=== PATIENT | female | born 1950 | race Caucasian/White ===

== ENCOUNTER 2016-06-05 09:57 | Emergency (ER) | payer OTHER ==
[~2016-06-05] VITALS: Ht 157.5 cm; Wt 96.7 kg
[~2016-06-05 09:57] MED LIST: AMT50 PO; CARV12.52 PO; INSDGI SC; METF1000 PO; MIRT15TA2 PO; ONDA8TAB6 PO; OXYC1TAB3 PO
[2016-06-05 10:14] VITALS: TEMP 36.9; Ht 157.5 cm; Wt 96.7 kg
--- NOTE | 2016-06-05 10:40 | DIAGNOSTIC IMAGING REPORT ---
RIGHT KNEE 3 VIEWS CLINICAL HISTORY: Right knee pain following fall. COMPARISON: Right knee radiographs March 30, 2016. FINDINGS: Alignment of the total right knee arthroplasty is anatomic. There is no periprosthetic fracture. Soft tissue swelling and a right knee joint effusion are present. IMPRESSION: 1. Status post total right knee arthroplasty. Hardware intact. No periprosthetic fracture. 2. Right knee joint effusion and soft tissue swelling. Electronically signed by: Bryon Russell M.D. 06/05/2016 10:38 AM Dictated Date/Time: 06/05/2016 10:37 AM
--- NOTE | 2016-06-05 10:42 | DIAGNOSTIC IMAGING REPORT ---
LEFT KNEE 3 VIEWS CLINICAL HISTORY: Left knee pain following fall. COMPARISON: Left knee radiograph May 26, 2014. FINDINGS: Alignment of the total left knee arthroplasty is anatomic. There is no periprosthetic fracture or joint effusion. Irregularity of the superior pole the patella is chronic. IMPRESSION: Status post total left knee arthroplasty. No periprosthetic fracture or joint effusion. Electronically signed by: Bryon Russell M.D. 06/05/2016 10:41 AM Dictated Date/Time: 06/05/2016 10:39 AM
[2016-06-05] MEDS ORDERED: OXYCODONE HCL IR 5 MG TAB (IMMEDIATE RELEASE) PO STA (11:29)
--- NOTE | 2016-06-05 11:48 | EMERGENCY ROOM VISIT NOTE ---
ED Visit Note First contact with patient: 11:19 CHIEF COMPLAINT: Bilateral knee contusions and abrasions after a fall this morning HISTORY OF PRESENT ILLNESS: Patient is a 65-year-old white female who presents to the emergency department for evaluation of bilateral knee pain. She states that about 2 hours prior to arrival in the emergency department she was outside with her dog, when she lost her balance and fell landing on her flexed knees bilaterally. She was wearing shorts and landed on concrete. She is 10 years status post left total knee arthroplasty and just 2 months status post right total knee arthroplasty performed by Dr. Elizabeth. Patient states that she took Tylenol after the fall which did not help with her knee pain. She presently rates it a 8/10. She reports that she does not have any prescription pain medication at home to use. She has been released from physical therapy. She is supposed to be walking with a cane and did not have it with her when she was outside. She controlled bleeding from her abrasions with a paper towel. REVIEW OF SYSTEMS: Review of systems as per HPI. All other systems reviewed were negative. At least 6 systems reviewed. PMH: Electronic medical records are reviewed and summarized as above/below. See Problem List.. SOCIAL HISTORY: Patient lives at home. PHYSICAL EXAM: Vital Signs: Reviewed Nurse's notes. MENTAL STATUS: Patient is a well-appearing 65-year-old white female who is awake and alert and seated in a wheelchair in no acute distress. MUSCULOSKELETAL: Examination of the anterior knees bilaterally show well-healed surgical scars. She has superficial abrasions, right worse than left, without active bleeding. Examination of the left knee does not demonstrate any significant soft tissue swelling. No joint effusion appreciated. She is tender over the anterior aspect of the knee. She can extend fully, flexes to roughly 100. No gross ligamentous instability is appreciated. Examination of the right knee does reveal some slight anterior soft tissue swelling and a mild joint effusion is appreciated. The anterior knee is tender. She can extend fully and flex to roughly 90. Calves are soft and nontender. Distal pulses are easily palpable. Sensation light touch is intact. EMERGENCY DEPARTMENT COURSE: X-rays of the bilateral knees showed anatomic alignment of the total knee arthroplasties, without evidence for periprosthetic fracture. She had some residual soft tissue swelling and a small joint effusion of the right knee which is postoperative. Patient's abrasions were cleansed and dressed. She was medicated with oxycodone 10 mg orally for pain. She was advised to be more careful and to ambulate with her cane at all times to minimize the risk of falling as this is her second ED visit for a fall since her right total knee replacement. The patient is on a watch and wait policy regarding narcotics at our facility due to prior behavior. It was not felt that her injuries warranted a narcotic prescription. It she was encouraged to follow-up with her orthopedic surgeon and if they would like to prescribe her something additional for pain, then they can do so. She reportedly has an appointment for June 21, but was encouraged to try to move this up due to her recent falls. The patient rated her discomfort a 2/10 at discharge. Differential diagnoses include contusion, abrasion, patellar fracture, periprosthetic fracture or hardware compromise/loosening, tendon rupture, among others. RIGHT KNEE 3 VIEWS CLINICAL HISTORY: Right knee pain following fall. COMPARISON: Right knee radiographs March 30, 2016. FINDINGS: Alignment of the total right knee arthroplasty is anatomic. There is no periprosthetic fracture. Soft tissue swelling and a right knee joint effusion are present. IMPRESSION: 1. Status post total right knee arthroplasty. Hardware intact. No periprosthetic fracture. 2. Right knee joint effusion and soft tissue swelling. LEFT KNEE 3 VIEWS CLINICAL HISTORY: Left knee pain following fall. COMPARISON: Left knee radiograph May 26, 2014. FINDINGS: Alignment of the total left knee arthroplasty is anatomic. There is no periprosthetic fracture or joint effusion. Irregularity of the superior pole the patella is chronic. IMPRESSION: Status post total left knee arthroplasty. No periprosthetic fracture or joint effusion. 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 (8) History of bladder surgery Status: Chronic (9) Hypertension Status: Chronic (10) Hypothyroidism Status: Chronic (11) Obesity (BMI 30.0-34.9) Status: Chronic (12) Osteoarthritis Status: Chronic (13) Pneumonia Status: Resolved Surgical Problems: (1) History of appendectomy Status: Chronic (2) History of esophageal surgery Status: Chronic (3) Hx of shoulder surgery Status: Chronic (4) S/p bilateral carpal tunnel release Status: Chronic (5) S/P cataract surgery Status: Chronic (6) S/P hysterectomy Status: Chronic (7) S/P thyroidectomy Status: Chronic Current/Historical Medications Scheduled Amitriptyline Hcl (Elavil), 100 MG PO HS Aspirin (Aspirin Ec), 81 MG PO DAILY Carvedilol (Coreg), 12.5 MG PO BID Hydrochlorothiazide (Hydrochlorothiazide), 1 TAB PO DAILY Insulin Glargine (Lantus), 7 UNITS SC QAM Insulin Glargine (Lantus), 30 UNITS SC QPM Levothyroxine Sodium (Synthroid), 200 MCG PO QAM Lisinopril (Lisinopril), 20 MG PO QAM Metformin Hcl (Glucophage), 1,000 MG PO BIDM Mirtazapine Soltab (Remeron Soltab), 15 MG PO HS Scheduled PRN Acetaminophen (Tylenol), 1,000 MG PO Q8 PRN for Headache or Pain Azelastine Hcl (Astelin Nasal [place]), 2 SPRAYS NA BID PRN for Nasal Congestion Polyethylene Glycol 3350 (Miralax), 1 TBS PO DAILY PRN for Constipation Allergies Coded Allergies: Amoxicillin (Verified Adverse Reaction, Unknown, nausea, 06/05/16) Clavulanic Acid (Verified Adverse Reaction, Unknown, nausea, 06/05/16) Penicillins (Verified Adverse Reaction, Unknown, NAUSEA/VOMITING, 06/05/16) Vital Signs Date Time Temp Pulse Resp B/P Pulse Ox O2 Delivery O2 Flow Rate FiO2 06/05/16 12:17 81 18 153/89 97 Room Air 06/05/16 10:14 36.9 85 16 134/60 94 Medications Administered Medications (Trade) Dose Ordered Sig/Melquiades Route Start Time Stop Time Status Last Admin Dose Admin Oxycodone HCl (Roxicodone Immediate Rel Tab) 10 mg NOW STAT PO 06/05/16 11:29 06/05/16 11:30 DC 06/05/16 11:50 10 MG Departure Information Impression Primary Impression: Contusion of left knee Additional Impressions: Contusion of right knee Multiple abrasions Referrals Chavo Paz M.D. (PCP) Patient Instructions My [facility] Additional Instructions DO NOT drive, drink alcohol, operate machinery, or perform dangerous activities today. You were given medications in the ER that can affect your ability to safely function or operate a vehicle. Ibuprofen(Motrin, Advil) may be used for fever or pain. Use 600mg every six hours as needed. Take with food. Avoid using more than 2400mg in a 24 hour period. Do not use 2400mg per day for more than three consecutive days without physician direction. Prolonged inappropriate use can lead to stomach upset or ulcers. (AND/OR) Acetaminophen(Tylenol) may be used for fever or pain. Use 1000mg every six hours as needed. Avoid using more than 3000mg in a 24 hour period. Clean abrasions daily with mild soap and water and cover with antibiotic ointment and a bandage until healed. Ambulate with your cane to minimize the risk of falling. Follow-up with your surgeon as scheduled. Call their office today to notify them of your falls and to schedule an appointment sooner if necessary. Problem Qualifiers Primary Impression: Contusion of left knee Encounter type: initial encounter Qualified Codes: S80.02XA - Contusion of left knee, initial encounter Additional Impressions: Contusion of right knee Encounter type: initial encounter Qualified Codes: S80.01XA - Contusion of right knee, initial encounter
[2016-06-05 12:17] VITALS: BP 153/89; PULSE 81; O2SAT 97
[2016-06-05] MEDS ORDERED: LEVO200T PO (17:20)
[2016-06-05] MEDS ORDERED: HYDR12.55 PO (18:19)
[2016-06-05] MEDS ORDERED: INSDGI SC (23:48)
[2016-08-04] MEDS ORDERED: LSN20 PO (17:17)
[2016-10-07] MEDS ORDERED: RXC5 PO (10:29)
== END 2016-06-05 12:18 | disposition home or self-care (01) ==
LOC: C.EDB 09:58 → C.EDA 12:18
DX: S80.02XA Contusion of left knee, initial encounter (principal); S80.01XA Contusion of right knee, initial encounter; W19.XXXA Unspecified fall, initial encounter; F41.9 Anxiety disorder, unspecified; E11.9 Type 2 diabetes mellitus without complications; I10 Essential (primary) hypertension; E03.9 Hypothyroidism, unspecified; E66.9 Obesity, unspecified; Z79.82 Long term (current) use of aspirin; Z68.39 Body mass index [BMI] 39.0-39.9, adult

== ENCOUNTER → 2016-07-19 | Outpatient (CLI) | payer OTHER ==
[~2016-07-19] MED LIST changes: +ACET-1256 PO; +AMT100 PO; +ASPI81TA28 PO; +ASTN; +BUSP1TAB46 PO; +CRG125 PO; +CYM60 PO; +HYDR12.55 PO; +INSDGIPEN SC; +LEVO200T PO; +LEVO200T6 PO; +LSN20 PO; +METF-384 PO; +MIRT15TA3 PO; -ONDA8TAB6 PO; -OXYC1TAB3 PO; +POLY335025 PO; +PRX/40 PO; +RXC5 PO; +VNTHFA/IN INH
--- NOTE | 2016-07-19 09:07 | DIAGNOSTIC IMAGING REPORT ---
CT LUMBAR SPINE WITHOUT CT DOSE: 602.95 mGycm CLINICAL HISTORY: Back pain with leg radiculopathy. TECHNIQUE: Helical images were acquired in transverse plane. Reformatted sagittal and coronal images were reviewed. CONTRAST: No contrast was administered COMPARISON STUDY: 10/05/2014 FINDINGS: There is a transitional vertebra present. There is sacralization of the L5 vertebra. There is an old T12 compression deformity. L1-2 level: There is a minor circumferential disc bulge present. There is a very minor triangular spinal canal narrowing. There is no foraminal stenosis. L2-3 level: There is a circumferential disc bulge. There is mild transverse spinal canal narrowing. L3-4 level: There is a grade 1 spondylolisthesis of L3 on L4. There is a circumferential disc bulge. There is facet joint arthropathy. There is mild to moderate spinal canal narrowing. L4-5 level: There is gas present within the disc. There is marked disc narrowing. There is gas within the left epidural space, possibly secondary to gas within an extruded disc fragment. L5-S1 level: Due to the transitional vertebra and sacralization of the L5 vertebra, there is no significant L5-S1 disc. IMPRESSION: 1. Transitional vertebra with sacralization of the L5 vertebra. The numbering scheme was annotated on the PACS images. 2. Old superior endplate T12 compression deformity 3. Multilevel spondylitic changes with mild to moderate spinal stenosis at the L3-4 level 4. Gas present within the left epidural space at the L4-5 level, possibly secondary to gas within an extruded disc fragment Electronically signed by: Francis Epperson M.D. 07/19/2016 9:05 AM Dictated Date/Time: 07/19/2016 8:57 AM
== END | disposition home or self-care (01) ==
LOC: C.CTS 08:33
PROVIDERS: ATTEND Pain Medicine Interventional Pain Medicine
DX: M54.16 Radiculopathy, lumbar region (principal)

== ENCOUNTER 2016-08-04 19:28 | Emergency (ER) | payer OTHER ==
[~2016-08-04] VITALS: Ht 157.5 cm; Wt 100.0 kg
[~2016-08-04 19:28] MED LIST changes: -ACET-1256 PO; -AMT100 PO; -ASPI81TA28 PO; -ASTN; -BUSP1TAB46 PO; -CRG125 PO; -CYM60 PO; -INSDGIPEN SC; -LEVO200T6 PO; -METF-384 PO; -MIRT15TA3 PO; -POLY335025 PO; -PRX/40 PO; -RXC5 PO; -VNTHFA/IN INH
[2016-08-04 19:39] VITALS: TEMP 37.2; Ht 157.5 cm; Wt 100.0 kg
[2016-08-04] MEDS ORDERED: LEVO200T6 PO (20:04)
[2016-08-04] MEDS ORDERED: MIRT15TA3 PO (20:04)
[2016-08-04] MEDS ORDERED: BUSP1TAB46 PO (20:04)
[2016-08-04] MEDS ORDERED: METF-384 PO (20:04)
[2016-08-04] MEDS ORDERED: CYM60 PO (20:04)
[2016-08-04] MEDS ORDERED: CRG125 PO (20:04)
[2016-08-04] MEDS ORDERED: INSDGIPEN SC ×2 (20:04)
[2016-08-04] MEDS ORDERED: VNTHFA/IN INH (20:04)
[2016-08-04] MEDS ORDERED: PRX/40 PO (20:04)
[2016-08-04] MEDS ORDERED: AMT100 PO (20:04)
[2016-08-04] MEDS ORDERED: ASTN (20:06)
[2016-08-04] MEDS ORDERED: POLY335025 PO (20:06)
[2016-08-04] MEDS ORDERED: PROMETHAZINE HCL INJ 25 MG in SODIUM CHLORIDE 0.9% 50ML 50 ML IV STA (20:12)
[2016-08-04] MEDS ORDERED: KETOROLAC TROMETHAMINE 30 MG/ML VIAL IV STA (20:12)
[2016-08-04] MEDS ORDERED: ACET-1256 PO (20:27)
[2016-08-04] MEDS ORDERED: ASPI81TA28 PO (20:27)
[2016-08-04 20:51] LABS: URINE APPEARANCE CLEAR (CLEAR); URINE BILIRUBIN NEG (NEG); URINE COLOR YELLOW; URINE NITRITE NEG (NEG); URINE PH 6.5 (4.5-7.5); URINE SPECIFIC GRAVITY 1.018 (1.000-1.030); UROBILINOGEN NEG (NEG)
[2016-08-04 20:52] LABS: REVIEW REQ? NO
[2016-08-04 20:53] LABS: MANUAL MICROSCOPIC REQUIRED? NO
[2016-08-04 21:00] LABS: BASO % 0.4 %; BASO ABS # 0.03 K/uL (0-0.2); COMPLETE YES; EOS % 2.6 %; HEMATOCRIT 34.6 % (37-47); IG% 0.4 %; LYMPH % 16.9 %; MEAN CELL VOLUME 78.3 fL (80-100); MEAN CORPUSCULAR HEMOGLOBIN 25.1 pg (25-34); MEAN CORPUSCULAR HGB CONC 32.1 g/dl (32-36); MONO % 8.8 %; NEUT % 70.9 %; PLATELET COUNT 319 K/uL (130-400); RED BLOOD COUNT 4.42 M/uL (4.2-5.4); WHITE BLOOD COUNT 7.71 K/uL (4.8-10.8)
--- NOTE | 2016-08-04 21:16 | DIAGNOSTIC IMAGING REPORT ---
LUMBAR SPINE CT CT DOSE: 1953.39 mGy.cm HISTORY: Pain worsening back pain TECHNIQUE: Multiaxial CT images of the lumbar spine were performed and reformatted in the sagittal and coronal plane without the use of contrast. COMPARISON: 07/19/2016 FINDINGS: Vertebral body stature is unremarkable. Mild wedge deformity superior endplate T12 and T11 considerable old. No evidence for posterior displacement of any significant component of the vertebral body. Vacuum disc again noted L4-L5. This is unchanged. Is again noted that there is a transitional vertebra with number of the vertebral bodies unchanged in the prior exam Possible extruded disc fragment posterior to the L5 segment unchanged in the prior study. All findings are unchanged from the prior exam. IMPRESSION: 1. No change from the prior study dated 07/19/2016. 2. Moderate degenerative disc changes throughout unchanged. 3. Extruded disc fragment L4-L5 extending posterior to the L5 vertebral body. This is unchanged. 4. Moderate multilevel bulging disc components are all unchanged in the prior exam. 5. This study is considered identical to the prior study. Electronically signed by: Bassem Kat M.D. 08/04/2016 9:15 PM Dictated Date/Time: 08/04/2016 9:10 PM
[2016-08-04 21:18] LABS: BUN/CREATININE RATIO 23.8 (10-20); C-REACTIVE PROTEIN 0.67 mg/dl (0-0.29); CALCIUM 8.7 mg/dl (8.5-10.1); POTASSIUM 4.6 mmol/L (3.5-5.1)
[2016-08-04 21:37] VITALS: BP 131/73; PULSE 76; O2SAT 97
--- NOTE | 2016-08-05 02:11 | EMERGENCY ROOM VISIT NOTE ---
History Report prepared by Amrita: Lacie Silverio Under the Supervision of: Dr. Shay Aiken M.D. First contact with patient: 19:39 Chief Complaint: HIP PAIN Stated Complaint: HIP PAIN History of Present Illness The patient is a 65 year old female who presents to the Emergency Room with complaints of worsening right hip pain for the past 3 days. She has had pain for the past few weeks, for which she has been following with an orthopedist, but her pain has gotten worse over the past 3 days. She states that her pain radiates down into her right leg. She typically takes Percocet for pain. She did not take any Percocet today because she has run out of it. The patient rates her pain as a 9/10 in severity. She had had a CT scan on July 19 for these symptoms and was found to have an old compression fracture of T12, some spinal stenosis, and a bulging disc on the left side of L4, L5. She states that her orthopedist has given her injections for this pain, but it has not helped and she thinks that it has made her pain worse. The patient reports some nausea that she thinks is secondary to her pain. She was advised to come to the ED with worsening symptoms. Pt denies LOC, headache, fevers, chills, diaphoresis, visual changes, neck pain , chest pain, breathing difficulties, vomiting, abdominal pain, melena, hematochezia, urinary symptoms, numbness, weakness, lymphadenopathy, rash, or other complaints. Source of History: patient Onset: 3 days ago Position: other (right hip) Symptom Intensity: 9/10 Quality: other (radiating) Timing: worsening Modifying Factors (Worsening): other (injections) Associated Symptoms: + nausea Note: The patient has pain into her right leg. Review of Systems See HPI for pertinent positives and negatives. A total of ten systems were reviewed and were otherwise negative. 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 Surgical Problems: (1) History of appendectomy (2) History of esophageal surgery (3) Hx of shoulder surgery (4) S/p bilateral carpal tunnel release (5) S/P cataract surgery (6) S/P hysterectomy (7) S/P thyroidectomy Family History Cancer Diabetes mellitus Heart disease Hypertension Kidney disease Kidney stones Lung disease Social History Smoking Status: Never Smoker Alcohol Use: none Drug Use: none Marital Status: Housing Status: lives alone Occupation Status: employed Current/Historical Medications Scheduled Amitriptyline HCl (Amitriptyline HCl), 100 MG PO HS Aspirin (Aspirin Ec), 81 MG PO DAILY Buspirone Hcl (Buspirone Hcl), 7.5 MG PO BID Carvedilol (Carvedilol), 12.5 MG PO BID Duloxetine HCl (Duloxetine HCl), 60 MG PO DAILY Insulin Glargine (Lantus Solostar), 7 UNITS SC QAM Insulin Glargine (Lantus Solostar), 30 UNITS SC QPM Levothyroxine Sodium (Levothyroxine Sodium), 200 MCG PO DAILY Lisinopril (Lisinopril), 20 MG PO QAM Metformin Hcl (Glucophage), 1,000 MG PO BIDM Mirtazapine (Remeron), 15 MG PO HS Paroxetine (Paroxetine HCl), 40 MG PO DAILY Scheduled PRN Acetaminophen (Tylenol), 1,000 MG PO Q8 PRN for Headache or Pain Albuterol Hfa (Ventolin Hfa), 2 PUFFS INH Q4H PRN for Wheezing Azelastine Hcl (Astelin Nasal [place]), 2 SPRAYS NA BID PRN for Nasal Congestion Polyethylene Glycol 3350 (Miralax), 1 TBS PO DAILY PRN for Constipation Allergies Coded Allergies: Amoxicillin (Verified Adverse Reaction, Unknown, nausea, 06/05/16) Clavulanic Acid (Verified Adverse Reaction, Unknown, nausea, 06/05/16) Penicillins (Verified Adverse Reaction, Unknown, NAUSEA/VOMITING, 06/05/16) Physical Exam Vital Signs Date Time Temp Pulse Resp B/P Pulse Ox O2 Delivery O2 Flow Rate FiO2 08/04/16 21:37 76 12 131/73 97 08/04/16 19:39 37.2 86 16 144/52 96 Room Air Physical Exam GENERAL: Awake, alert, well-appearing, in no distress HENT: Normocephalic, atraumatic. Oropharynx unremarkable. EYES: Normal conjunctiva. Sclera non-icteric. NECK: Supple. No nuchal rigidity. FROM. No JVD. RESPIRATORY: Clear to auscultation. CARDIAC: Regular rate, normal rhythm. Extremities warm and well perfused. Pulses equal. ABDOMEN: Soft, non-distended. No tenderness to palpation. No rebound or guarding. No masses. RECTAL: Deferred. MUSCULOSKELETAL: Chest examination reveals no tenderness. The back is symmetrical on inspection without obvious abnormality. There is no CVA tenderness to palpation. No joint edema. LOWER EXTREMITIES: Calves are equal size bilaterally and non-tender. No edema. No discoloration. NEURO: Normal sensorium. No sensory or motor deficits noted. No saddle anesthesia, negative SLR, reflexes symmetric. SKIN: No rash or jaundice noted. Medical Decision & Procedures ER Provider Diagnostic Interpretation: Radiology results as stated below per my review and radiologist interpretation: LUMBAR SPINE CT CT DOSE: 1953.39 mGy.cm HISTORY: Pain worsening back pain TECHNIQUE: Multiaxial CT images of the lumbar spine were performed and reformatted in the sagittal and coronal plane without the use of contrast. COMPARISON: 07/19/2016 FINDINGS: Vertebral body stature is unremarkable. Mild wedge deformity superior endplate T12 and T11 considerable old. No evidence for posterior displacement of any significant component of the vertebral body. Vacuum disc again noted L4-L5. This is unchanged. Is again noted that there is a transitional vertebra with number of the vertebral bodies unchanged in the prior exam Possible extruded disc fragment posterior to the L5 segment unchanged in the prior study. All findings are unchanged from the prior exam. IMPRESSION: 1. No change from the prior study dated 07/19/2016. 2. Moderate degenerative disc changes throughout unchanged. 3. Extruded disc fragment L4-L5 extending posterior to the L5 vertebral body. This is unchanged. 4. Moderate multilevel bulging disc components are all unchanged in the prior exam. 5. This study is considered identical to the prior study. Electronically signed by: Bassem Kat M.D. 08/04/2016 9:15 PM Dictated Date/Time: 08/04/2016 9:10 PM Laboratory Results 08/04/16 20:30 Red Blood Count 4.42, Mean Corpuscular Volume 78.3, Mean Corpuscular Hemoglobin 25.1, Mean Corpuscular Hemoglobin Concent 32.1, Mean Platelet Volume 8.0, Neutrophils (%) (Auto) 70.9, Lymphocytes (%) (Auto) 16.9, Monocytes (%) (Auto) 8.8, Eosinophils (%) (Auto) 2.6, Basophils (%) (Auto) 0.4, Neutrophils # (Auto) 5.47, Lymphocytes # (Auto) 1.30, Monocytes # (Auto) 0.68, Eosinophils # (Auto) 0.20, Basophils # (Auto) 0.03 08/04/16 20:30 Test 08/04/16 00:00 08/04/16 20:30 Urine Color YELLOW Urine Appearance CLEAR (CLEAR) Urine pH 6.5 (4.5-7.5) Urine Specific [place] 1.018 (1.000-1.030) Urine Protein NEG (NEG) Urine Glucose (UA) 3+ (NEG) Urine Ketones NEG (NEG) Urine Occult Blood NEG (NEG) Urine Nitrite NEG (NEG) Urine Bilirubin NEG (NEG) Urine Urobilinogen NEG (NEG) Urine Leukocyte Esterase NEG (NEG) White Blood Count 7.71 K/uL (4.8-10.8) Red Blood Count 4.42 M/uL (4.2-5.4) Hemoglobin 11.1 g/dL (12.0-16.0) Hematocrit 34.6 % (37-47) Mean Corpuscular Volume 78.3 fL (80-100) Mean Corpuscular Hemoglobin 25.1 pg (25-34) Mean Corpuscular Hemoglobin Concent 32.1 g/dl (32-36) Platelet Count 319 K/uL (130-400) Mean Platelet Volume 8.0 fL (7.4-10.4) Neutrophils (%) (Auto) 70.9 % Lymphocytes (%) (Auto) 16.9 % Monocytes (%) (Auto) 8.8 % Eosinophils (%) (Auto) 2.6 % Basophils (%) (Auto) 0.4 % Neutrophils # (Auto) 5.47 K/uL (1.4-6.5) Lymphocytes # (Auto) 1.30 K/uL (1.2-3.4) Monocytes # (Auto) 0.68 K/uL (0.11-0.59) Eosinophils # (Auto) 0.20 K/uL (0-0.5) Basophils # (Auto) 0.03 K/uL (0-0.2) RDW Standard Deviation 40.9 fL (36.4-46.3) RDW Coefficient of Variation 14.3 % (11.5-14.5) Immature Granulocyte % (Auto) 0.4 % Immature Granulocyte # (Auto) 0.03 K/uL (0.00-0.02) Erythrocyte Sedimentation Rate 33 mm/hr (0-21) Anion Gap 7.0 mmol/L (3-11) Est Creatinine Clear Calc Drug Dose 62.0 ml/min Estimated GFR () 68.5 Estimated GFR (Non- 59.1 BUN/Creatinine Ratio 23.8 (10-20) Calcium Level 8.7 mg/dl (8.5-10.1) C-Reactive Protein 0.67 mg/dl (0-0.29) Laboratory results reviewed by me Medications Administered Medications (Trade) Dose Ordered Sig/Melquiades Route Start Time Stop Time Status Last Admin Dose Admin Ketorolac Tromethamine 10 mg 10 mg NOW STAT IV 08/04/16 20:12 08/04/16 20:15 DC 08/04/16 20:38 10 MG Promethazine HCl/ Sodium Chloride (Phenergan Inj/ Nss 50ml) 51 ml @ 204 mls/hr NOW STAT IV 08/04/16 20:12 08/04/16 20:26 DC 08/04/16 20:38 204 MLS/HR ED Course 1939: Prior to evaluating the patient I removed her on the PDMP. I called the patient's PCP to discuss her narcotic use. 1956: At this time I spoke with Dr. Paz, the patient's PCP. We discussed the patient's case. He cut the patient off from narcotics several months ago. When I brought up the prescription issue where the patient got 360 tramadol in a little over 3 weeks, he was not sure how that happened and he is going to investigate. 2001: The patient was evaluated in room B2. A complete history and physical exam was performed. 2011: Promethazine HCl 25mg/Sodium Chloride 51 ml @ 204 mls/hr IV, Toradol 10 mg IV 2153: I reassessed the patient at this time. She is feeling better and resting comfortably. I discussed the results and treatment plan with the patient. I answered all pertaining questions that she had. She expressed understanding and verbalized agreement. The patient will be discharged home. Medical Decision Triage Nursing notes reviewed. The patient's presentation and history were concerning for back pain. Etiologies such as lumbago, sciatica, cauda equina, epidural abscess, osteomyelitis, fracture, aortic disease, metastatic disease, infection, renal colic, gastrointestinal, as well as others were entertained. The patient was evaluated. The prescription drug monitoring program was reviewed and revealed that the patient had received a significant number of prescriptions from her semiconductor wafers marker, primary care physician, and orthopedics. The patient did have orthopedic surgery. One issue did pop up with the fact the patient appeared to receive 360 tramadol in about 3 weeks' time. These were all written from the PCPs office and to prescriptions for 120 tablets were written on the same day. I did contact her primary physician and notify him of this. He was unaware of the issue with regards to the multiple pills however had already restricted the patient from narcotic prescriptions from the office several months ago due to concerns about addiction. The patient did not have any focal neurologic findings. Because of her complaints and prior imaging repeat CT imaging was performed. She cannot have MR imaging secondary to metal in her body from surgery over 30 years ago on her esophagus. The patient had no significant changes on CT imaging. She had no leukocytosis on blood work. She had a minimal elevation of ESR and CRP which may be related to her arthritic issues. The patient was given Toradol. Urinalysis was unremarkable. She was feeling somewhat better. Her family presented to the Emergency Room. Without divulging information to them they offered that she is very fond of her pain pills and I did instruct the patient and the family that she would not be receiving narcotic prescriptions from the emergency department or narcotics for treatment of her chronic pain in light of these issues. By the evaluation outlined above other emergent etiologies such as those listed in the differential, as well as others, were deemed relatively unlikely. The patient and family were informed about the findings as listed above. All questions were answered and they were pleased with the treatment. Return instructions were outlined and the patient was discharged in stable condition. The patient was referred to her PCP and pain management for follow-up for a recheck of the current condition. The chart was completed utilizing [employer] Speech voice recognition software. Grammatical errors, random word insertions, pronoun errors, and incomplete sentences are an occasional consequence of this system due to software limitations, ambient noise, and hardware issues. Any formal questions or concerns about the content, text, or information contained within the body of this dictation should be directly addressed to the physician for clarification. [place] Drug [place] Search Results: patient reviewed within database Drug Monitoring Findings: She has had 34 prescriptions by 7 providers in the past 12 months. It appears that they are mostly from her orthopedist and PCP. Consults Time Called: 1947 Consulting Physician: Dr. Paz Returned Call: 1956 At this time I spoke with Dr. Paz, the patient's PCP. We discussed the patient's case. He cut the patient off from narcotics several months ago. When I brought up the prescription issue where the patient got 360 tramadol in a little over 3 weeks, he was not sure how that happened and he is going to investigate. Impression Primary Impression: Acute exacerbation of chronic low back pain Scribe Attestation The scribe's documentation has been prepared under my direction and personally reviewed by me in its entirety. I confirm that the note above accurately reflects all work, treatment, procedures, and medical decision making performed by me. Departure Information Dispostion Home / Self-Care Referrals Chavo Paz M.D. (PCP) Forms HOME CARE DOCUMENTATION FORM, IMPORTANT VISIT INFORMATION, WORK / SCHOOL INSTRUCTIONS Patient Instructions [facility] Additional Instructions BACK PAIN/INJURY INSTRUCTIONS: Ibuprofen(Motrin, Advil) may be used for fever or pain. Use 600mg every six hours as needed. Take with food. Avoid using more than 2400mg in a 24 hour period. Do not use 2400mg per day for more than three consecutive days without physician direction. Prolonged inappropriate use can lead to stomach upset or ulcers. This medication can be taken if you need to drive, work, or perform activities which may be dangerous when taking narcotic pain medication. (AND/OR) Acetaminophen(Tylenol) may be used for fever or pain. Use 1000mg every six hours as needed. Avoid using more than 4000mg in a 24 hour period. This medication can be taken if you need to drive, work, or perform activities which may be dangerous when taking narcotic pain medication. Rest and avoid heavy lifting until your symptoms resolve and then gradually return to full activity. A good rule of thumb is if it hurts your back to perform a certain activity, then it should be avoided until you are healthy again. A heating pad, warm compresses, or a hot shower may help with tight muscles and can be done several times a day as needed. Continue current medications. Return to the ER immediately for any numbness, tingling, severe pain, loss of control of your bowels or bladder, inability to walk, or as needed. Follow up with aida Alonzo or your primary physician on Sunday for a recheck of your current condition.
[2016-10-07] MEDS ORDERED: RXC5 PO (10:29)
== END 2016-08-04 22:14 | disposition home or self-care (01) ==
LOC: EDBD 19:28 → C.EDB 19:31
DX: M54.5 Low back pain (principal); G89.29 Other chronic pain; F41.9 Anxiety disorder, unspecified; E11.9 Type 2 diabetes mellitus without complications; F32.9 Major depressive disorder, single episode, unspecified; Z96.652 Presence of left artificial knee joint; I10 Essential (primary) hypertension; E66.9 Obesity, unspecified; Z87.01 Personal history of pneumonia (recurrent); Z90.710 Acquired absence of both cervix and uterus; E89.0 Postprocedural hypothyroidism; Z98.49 Cataract extraction status, unspecified eye; Z83.3 Family history of diabetes mellitus; Z82.49 Family history of ischemic heart disease and other diseases of the circulatory system; Z79.82 Long term (current) use of aspirin; Z79.4 Long term (current) use of insulin; Z79.899 Other long term (current) drug therapy

== ENCOUNTER 2016-10-06 09:01 | Inpatient (IN) | payer OTHER ==
[2016-09-22 08:23] VITALS: BMI 41.0
--- NOTE | 2016-09-22 09:00 | PAT Medication Instructions ---
Service Date September 22, 2016. Current Home Medication List Acetaminophen (Tylenol), 1,000 MG PO Q8 PRN for Headache or Pain Albuterol Hfa (Ventolin Hfa), 2 PUFFS INH Q4H PRN for Wheezing Amitriptyline HCl (Amitriptyline HCl), 100 MG PO HS Aspirin (Aspirin Ec), 81 MG PO QAM Azelastine Hcl (Astelin Nasal [place]), 2 SPRAYS NA BID PRN for Nasal Congestion Buspirone Hcl (Buspirone Hcl), 7.5 MG PO BID Carvedilol (Carvedilol), 12.5 MG PO BID Duloxetine HCl (Duloxetine HCl), 60 MG PO QAM Insulin Glargine (Lantus Solostar), 7 UNITS SC QAM Insulin Glargine (Lantus Solostar), 30 UNITS SC QPM Levothyroxine Sodium (Levothyroxine Sodium), 200 MCG PO QAM Lisinopril (Lisinopril), 20 MG PO QAM Metformin Hcl (Glucophage), 1,000 MG PO BIDM Mirtazapine (Remeron), 15 MG PO HS Paroxetine (Paroxetine HCl), 40 MG PO QAM Polyethylene Glycol 3350 (Miralax), 1 TBS PO DAILY PRN for Constipation Medication Instructions For Your Scheduled Surgery - Hold the following medications 48 hours prior to surgery: Metformin Hcl (Glucophage), 1,000 MG PO BIDM - Hold the following medications the morning of surgery: Polyethylene Glycol 3350 (Miralax), 1 TBS PO DAILY PRN for Constipation Lisinopril (Lisinopril), 20 MG PO QAM - Take the following medications the morning of surgery with a sip of water: Paroxetine (Paroxetine HCl), 40 MG PO QAM Levothyroxine Sodium (Levothyroxine Sodium), 200 MCG PO QAM Duloxetine HCl (Duloxetine HCl), 60 MG PO QAM Carvedilol (Carvedilol), 12.5 MG PO BID Buspirone Hcl (Buspirone Hcl), 7.5 MG PO BID Aspirin (Aspirin Ec), 81 MG PO QAM Azelastine Hcl (Astelin Nasal [place]), 2 SPRAYS NA BID PRN for Nasal Congestion (if needed) Acetaminophen (Tylenol), 1,000 MG PO Q8 PRN for Headache or Pain (if needed) Albuterol Hfa (Ventolin Hfa), 2 PUFFS INH Q4H PRN for Wheezing (bring with you on day of surgery to hospital) - Take the following medications as scheduled the night before surgery: Insulin Glargine (Lantus Solostar), 30 UNITS SC QPM Carvedilol (Carvedilol), 12.5 MG PO BID Buspirone Hcl (Buspirone Hcl), 7.5 MG PO BID Azelastine Hcl (Astelin Nasal [place]), 2 SPRAYS NA BID PRN for Nasal Congestion Amitriptyline HCl (Amitriptyline HCl), 100 MG PO HS Mirtazapine (Remeron), 15 MG PO HS Acetaminophen (Tylenol), 1,000 MG PO Q8 PRN for Headache or Pain Albuterol Hfa (Ventolin Hfa), 2 PUFFS INH Q4H PRN for Wheezing - For Insulin Dependent Diabetic patients: Test blood sugar A.M. of surgery. - If blood sugar is greater than 150, take half of your Lantus dose: 3 units - If blood sugar is less than 150, do not take any: Lantus If you have any questions please call us at [phone] or [phone] ( [place]) or [phone]
[2016-09-22 09:23] LABS: BASO % 0.6 %; BASO ABS # 0.04 K/uL (0-0.2); COMPLETE YES; EOS % 13.4 %; HEMATOCRIT 32.2 % (37-47); IG% 0.1 %; LYMPH % 14.7 %; LYMPH ABS # 1.01 K/uL (1.2-3.4); MEAN CELL VOLUME 80.1 fL (80-100); MEAN CORPUSCULAR HEMOGLOBIN 25.6 pg (25-34); MEAN PLATELET VOLUME 7.9 fL (7.4-10.4); MONO % 7.5 %; NEUT % 63.7 %; PLATELET COUNT 276 K/uL (130-400); RED BLOOD COUNT 4.02 M/uL (4.2-5.4); WHITE BLOOD COUNT 6.89 K/uL (4.8-10.8)
[2016-09-22 09:27] LABS: URINE APPEARANCE CLEAR (CLEAR); URINE BILIRUBIN NEG (NEG); URINE COLOR YELLOW; URINE NITRITE NEG (NEG); UROBILINOGEN NEG (NEG)
[2016-09-22 09:32] LABS: MANUAL MICROSCOPIC REQUIRED? NO; REVIEW REQ? NO
[2016-09-22 14:29] LABS: BUN/CREATININE RATIO 22.7 (10-20); CALCIUM 9.2 mg/dl (8.5-10.1); POTASSIUM 5.2 mmol/L (3.5-5.1)
[2016-10-06] VITALS (7 sets, daily range): BP systolic 97–123; BP diastolic 56–75; PULSE 79–97; TEMP 36.6–37.1; O2SAT 94–99; Ht 157.5 cm; Wt 103.0 kg
[~2016-10-06] VITALS: Ht 157.5 cm; Wt 103.0 kg
[~2016-10-06 09:01] MED LIST changes: +ACET-1256 PO; +AMT100 PO; -AMT50 PO; +ASPI81TA28 PO; +ASTN; +BUSP1TAB46 PO; -CARV12.52 PO; +CEFAZOLIN 2000 MG/60 ML D5W IV SCH; +CRG125 PO; +CYM60 PO; -HYDR12.55 PO; -INSDGI SC; +INSDGIPEN SC; +LACTATED RINGER'S 1000ML 1,000 ML IV SCH; -LEVO200T PO; +LEVO200T6 PO; +METF-384 PO; -METF1000 PO; -MIRT15TA2 PO; +MIRT15TA3 PO; +POLY335025 PO; +PRX/40 PO; +VNTHFA/IN INH
[2016-10-06] MEDS ORDERED: ONDANSETRON INJ 2 MG/ML 2 ML VIAL ONE ×3 (11:19→14:29)
[2016-10-06] MEDS ORDERED: NURSING VERBAL MED ORDER ONE (11:20)
[2016-10-06] MEDS ORDERED: ONDANSETRON INJ 2 MG/ML 2 ML VIAL IV STA (11:20)
[2016-10-06] MEDS ORDERED: MIDAZOLAM HCL 1 MG/ML 2ML VIAL ONE (11:25)
[2016-10-06] MEDS ORDERED: FENTANYL CITRATE INJ 50 MCG/1 ML 2 ML VIAL ONE ×2 (11:25→12:47)
--- NOTE | 2016-10-06 11:25 | History & Physical Bridge Note ---
H&P Re-Evaluation Bridge Note: I have examined the patient, reviewed the History & Physical and in the interval since the performance of the History & Physical I have noted the following changes of clinical significance: No changes noted
--- NOTE | 2016-10-06 11:26 | History and Physical ---
History & Physical Date October 06, 2016. 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 Surgical Problems: (1) History of appendectomy (2) History of esophageal surgery (3) Hx of shoulder surgery (4) S/p bilateral carpal tunnel release (5) S/P cataract surgery (6) S/P hysterectomy (7) S/P thyroidectomy Additional History Hepatic Disease: No Endocrine Disorder: No Kidney Disease: No Hypertension: No Heart Disease: No Bleeding Tendencies: No Infectious Diseases: No Allergies Coded Allergies: Amoxicillin (Verified Adverse Reaction, Unknown, nausea, 10/06/16) Clavulanic Acid (Verified Adverse Reaction, Unknown, nausea, 10/06/16) Penicillins (Verified Adverse Reaction, Unknown, NAUSEA/VOMITING, 10/06/16) Home Medications Scheduled Amitriptyline HCl (Amitriptyline HCl), 100 MG PO HS Aspirin (Aspirin Ec), 81 MG PO QAM Buspirone Hcl (Buspirone Hcl), 7.5 MG PO BID Carvedilol (Carvedilol), 12.5 MG PO BID Duloxetine HCl (Duloxetine HCl), 60 MG PO QAM Insulin Glargine (Lantus Solostar), 7 UNITS SC QAM Insulin Glargine (Lantus Solostar), 30 UNITS SC QPM Levothyroxine Sodium (Levothyroxine Sodium), 200 MCG PO QAM Lisinopril (Lisinopril), 20 MG PO QAM Metformin Hcl (Glucophage), 1,000 MG PO BIDM Mirtazapine (Remeron), 15 MG PO HS Paroxetine (Paroxetine HCl), 40 MG PO QAM Scheduled PRN Acetaminophen (Tylenol), 1,000 MG PO Q8 PRN for Headache or Pain Albuterol Hfa (Ventolin Hfa), 2 PUFFS INH Q4H PRN for Wheezing Azelastine Hcl (Astelin Nasal [place]), 2 SPRAYS NA BID PRN for Nasal Congestion Polyethylene Glycol 3350 (Miralax), 1 TBS PO DAILY PRN for Constipation Physical Examination Skin: warm/dry, no rash Eyes: normal inspection, EOMI, sclerae normal ENT: normal ENT inspection, pharynx normal Head: normocephalic, atraumatic Neck: supple, no adenopathy, trachea midline Respiratory/Chest: lungs clear, normal breath sounds, no respiratory distress Cardiovascular: regular rate, rhythm, no edema, no murmur Abdomen / GI: normal bowel sounds, non tender Back: normal inspection Extremities: normal inspection, normal range of motion Neurologic/Psych: no motor/sensory deficits, alert, normal reflexes, oriented x 3 Diagnosis lumbar stenosis Plan of Treatment decompression fusion L4-S1
[2016-10-06] MEDS ORDERED: ATROPINE SULFATE 0.1 MG/ML 5ML SYR IV PRN (11:30)
[2016-10-06] MEDS ORDERED: ONDANSETRON INJ 2 MG/ML 2 ML VIAL IV PRN ×2 (11:30→14:15)
[2016-10-06] MEDS ORDERED: LABETALOL HCL IV 5 MG/ML 20ML IV PRN (11:30)
[2016-10-06] MEDS ORDERED: PROMETHAZINE HCL INJ 6.25 MG in SODIUM CHLORIDE 0.9% 50ML 50 ML IV PRN (11:30)
[2016-10-06] MEDS ORDERED: BACITRACIN 50000 UNIT VIAL ONE (11:59)
[2016-10-06] MEDS ORDERED: BUPIVACAINE/EPINEPHRINE 0.5% MPF 1:200,000 30 ML VIAL ONE (11:59)
[2016-10-06] MEDS ORDERED: SODIUM CHLORIDE 0.9% PF 50 ML VIAL ONE (11:59)
[2016-10-06] MEDS ORDERED: HYDROmorphone INJ 2 MG/ML SYR/VIAL ONE ×2 (12:47→14:14)
[2016-10-06] MEDS ORDERED: LIDOCAINE HCL 2% 2 ML VIAL (20MG/ML) ONE (13:05)
[2016-10-06] MEDS ORDERED: ROCURONIUM BROMIDE 10 MG/ML 5 ML VIAL ONE (13:05)
[2016-10-06] MEDS ORDERED: PHENYLEPHRINE 100MCG/ML 5ML SYR ONE (13:05)
[2016-10-06] MEDS ORDERED: PROPOFOL IV EMULSION 10 MG/ML 20 ML VIAL IV ONE (13:05)
[2016-10-06] MEDS ORDERED: DEXAMETHASONE SOD INJ 4 MG/ML VIAL ONE (13:05)
[2016-10-06] MEDS ORDERED: FLOSEAL HEMOSTATIC MATRIX 10ML TOP ONE (14:06)
[2016-10-06] MEDS ORDERED: SODIUM CHLORIDE 0.9% 1000ML 1,000 ML IV SCH (14:10)
--- NOTE | 2016-10-06 14:10 | [facility] Post Operative Brief Note ---
Immediate Operative Summary Operative Date October 06, 2016. Pre-Operative Diagnosis lumbar stenosis Post-Operative Diagnosis lumbar stenosis Procedure(s) Performed L4-S1 Lumbar Laminectomy, Decompression, Pedicle Screw Fixation; L4-S1 Posterolateral Fusion, Application of Torri Allograft, Bone Morphogenetic Protein Surgeon Dr. Miguel Min [employer]ight Weigher Surgeon(s) Randal Murry PA-C Estimated Blood Loss 300ML Findings stenosis Specimens none
[2016-10-06] MEDS ORDERED: hydrOXYzine HCL 25 MG TAB PO PRN (14:15)
[2016-10-06] MEDS ORDERED: ACETAMINOPHEN 500 MG TAB PO PRN ×2 (14:15)
[2016-10-06] MEDS ORDERED: ALUMINUM/MAGNESIUM SUSP 30 ML UDC PO PRN (14:15)
[2016-10-06] MEDS ORDERED: BISACODYL 10 MG SUPP PR PRN (14:15)
[2016-10-06] MEDS ORDERED: LORAZEPAM 0.5 MG TAB PO PRN (14:15)
[2016-10-06] MEDS ORDERED: ALBUTEROL HFA 8 GM INHALER INH PRN (14:15)
[2016-10-06] MEDS ORDERED: SOD PHOSPHATE/SOD BIPHOSPHATE ENEMA 132 ML BTL PR PRN (14:15)
[2016-10-06] MEDS ORDERED: ACETAMINOPHEN IV 100 ML IV PRN (14:15)
[2016-10-06] MEDS ORDERED: METOCLOPRAMIDE HCL INJ 5 MG/ML 2 ML VIAL IV PRN (14:15)
[2016-10-06] MEDS ORDERED: MAGNESIUM HYDROXIDE SUSP 30 ML UDC PO PRN (14:15)
[2016-10-06] MEDS ORDERED: DO NOT ADMINISTER PNEUMOCOCCAL VACCINE PRN ×2 (14:15)
[2016-10-06] MEDS ORDERED: LORAZEPAM INJ 0.5 MG in SYRINGE 0 ML IV PRN (14:15)
[2016-10-06] MEDS ORDERED: NALOXONE HCL 0.4 MG/1 ML VIAL/CARP IV PRN ×2 (14:15)
[2016-10-06] MEDS ORDERED: PROMETHAZINE HCL INJ 12.5 MG in SODIUM CHLORIDE 0.9% 50ML 50 ML IV PRN (14:15)
[2016-10-06] MEDS ORDERED: DO NOT ADMINISTER FLU VACCINE PRN ×3 (14:15)
[2016-10-06] MEDS ORDERED: FAMOTIDINE 20 MG TAB PO PRN (14:15)
[2016-10-06] MEDS ORDERED: GLYCOPYRROLATE INJ 0.2 MG/ML VIAL ONE (14:29)
[2016-10-06] MEDS ORDERED: KETOROLAC TROMETHAMINE 30 MG/ML VIAL ONE (14:29)
[2016-10-06] MEDS ORDERED: NEOSTIGMINE METHYLSULFATE 1 MG/ML 10ML VIAL ONE (14:30)
--- NOTE | 2016-10-06 14:30 | DIAGNOSTIC IMAGING REPORT ---
LUMBAR SPINE, INTRAOPERATIVE FLUOROSCOPY HISTORY: L4-S1 decompression and fusion. FLUOROSCOPY TIME: 28 seconds. FINDINGS: Intraoperative fluoroscopy was provided for the lumbar spine. 2 fluoroscopic spot images were obtained. Posterior decompression fusion from L4 through S1 with pedicle screws and rods. The hardware appears intact. IMPRESSION: Fluoroscopy provided for a L4-S1 posterior decompression and fusion. Electronically signed by: Danyel Collins M.D. 10/06/2016 2:28 PM Dictated Date/Time: 10/06/2016 2:18 PM
[2016-10-06] MEDS: HYDROmorphone INJ 2 MG/ML SYR/VIAL IV PRN ×7 (14:51→15:21)
[2016-10-06] MEDS ORDERED: HYDROmorphone HCL 0.5MG/ML 50 ML CASSETTE ONE (14:52)
--- NOTE | 2016-10-06 15:48 | Anesthesiology Progress Note ---
Anesthesia Post Op Note Date & Time October 06, 2016 at 15:48 Vital Signs Pain Intensity: 4 Vital Signs Past 12 Hours Date Time Temp Pulse Resp B/P Pulse Ox O2 Delivery O2 Flow Rate FiO2 10/06/16 15:35 36.7 83 16 97/46 100 Nasal Cannula 4 10/06/16 15:25 84 16 94/68 100 Nasal Cannula 4 10/06/16 15:15 84 16 111/70 100 Nasal Cannula 4 10/06/16 15:05 88 16 145/95 100 Mask 10 10/06/16 14:55 88 16 130/76 100 Mask 10 10/06/16 14:45 37.0 89 16 139/66 99 Mask 10 10/06/16 09:56 36.8 79 20 120/75 99 Room Air Notes Mental Status: alert / awake / arousable, participated in evaluation Pt Amnestic to Procedure: Yes Nausea / Vomiting: adequately controlled Pain: adequately controlled Airway Patency, RR, SpO2: stable & adequate BP & HR: stable & adequate Hydration State: stable & adequate Anesthetic Complications: no major complications apparent
[2016-10-06] MEDS: HYDROmorphone HCL 0.5MG/ML 50 ML CASSETTE IV PRN ×2 (16:08→23:00)
[2016-10-06] MEDS: SODIUM CHLORIDE 0.9% 1000ML 1,000 ML IV SCH ×2 (16:35→21:41)
--- NOTE | 2016-10-06 17:10 | Medical Consult ---
Consultation Date of Consultation: October 06, 2016. Attending Physician: Miguel Min D.O. Reason for Consultation: Medical management History of Present Illness This is a 66 yo F with PMHx of HTN, hyperlipidemia, DM II, osteoarthritis, obesity with BMI= 41.5, hypothyroidism, depression and anxiety who was admitted under orthopedic services for lumbar stenosis and underwent a L4-S1 lumbar decompression fusion by Dr. Min on 10/06/16. The patient was seen and examined and is doing well after surgery. Her complaints currently are that she 's hot, and appears diaphoretic. She denies any fevers or chills, and states its because the room is warm and she's under about 5-6 blankets. She reports pain around the belt region, and that she has some numbness going down into her right leg, this pain is on and off. She denies any numbness or tingling. She denies any difficulty with breathing, and does not wear home O2. She denies any other acute complaints. Dinner tray arrived at the end of our visit. Past Medical/Surgical History Medical Problems: (1) Constipation Status: Acute (2) Contusion of left knee Status: Acute (3) Contusion of right knee Status: Acute (4) Contusion of right knee Status: Acute (5) Effusion, right knee Status: Acute (6) Multiple abrasions Status: Acute (7) Postoperative infection Status: Acute Social History Problems: (1) History of carpal tunnel surgery Status: Acute Family History Cancer Diabetes mellitus Heart disease Hypertension Kidney disease Kidney stones Lung disease Social History Smoking Status: Never Smoker Smokeless Tobacco Use: No Alcohol Use: none Drug Use: none Marital Status: Housing Status: lives alone Occupation Status: employed Allergies Coded Allergies: Amoxicillin (Verified Adverse Reaction, Unknown, nausea, 10/06/16) Clavulanic Acid (Verified Adverse Reaction, Unknown, nausea, 10/06/16) Penicillins (Verified Adverse Reaction, Unknown, NAUSEA/VOMITING, 10/06/16) Current Inpatient Medications Current Inpatient Medications Medications (Trade) Dose Ordered Sig/Melquiades Route Start Time Stop Time Status Last Admin Dose Admin Cefazolin Sodium 60 ml @ 100 mls/hr PREOP IV 10/06/16 06:00 10/06/16 18:00 10/06/16 12:21 100 MLS/HR Lactated Ringer's 1,000 ml @ 15 mls/hr Q24H IV 10/06/16 06:00 10/06/16 18:00 10/06/16 10:36 15 MLS/HR Clindamycin Phosphate 600 mg/ Dextrose 54 ml @ 100 mls/hr Q8H IV 10/06/16 14:15 10/06/16 22:48 UNV Dexamethasone Sodium Phosphate 6 mg/Syringe 1.5 ml @ 1 mls/min Q8H IV 10/06/16 14:15 10/07/16 06:17 UNV Promethazine HCl/ Sodium Chloride (Phenergan Inj/ Nss 50ml) 50.5 ml @ 202 mls/hr Q6H PRN IV 10/06/16 14:15 11/05/16 14:14 Ondansetron HCl (Zofran Inj) 4 mg Q6H PRN IV 10/06/16 14:15 11/05/16 14:14 Metoclopramide HCl (Reglan Inj) 10 mg Q6H PRN IV 10/06/16 14:15 11/05/16 14:14 Lorazepam 0.5 mg 0.5 mg Q8H PRN PO 10/06/16 14:15 11/05/16 14:14 Lorazepam/Syringe (Ativan Inj/ Syringe) 0.25 ml @ 1 mls/min Q8H PRN IV 10/06/16 14:15 11/05/16 14:14 Pneumococcal Polysaccharide Vaccine 1 ea PRN PRN N/A 10/06/16 14:15 11/05/16 14:14 Influenza Virus Vacc Triv Types A&B 1 ea PRN PRN N/A 10/06/16 14:15 11/05/16 14:14 Polyethylene (Miralax Powder Packet) 17 gm Q6 PO 10/08/16 06:00 11/07/16 05:59 UNV Bisacodyl (Dulcolax Supp) 10 mg DAILY PRN ME 10/06/16 14:15 11/05/16 14:14 Magnesium Hydroxide (Milk Of Magnesia Susp) 30 ml DAILY PRN PO 10/06/16 14:15 11/05/16 14:14 Hydromorphone HCl (Dilaudid Inj) 0.5-1mg prn moder... Q3H PRN IV 10/07/16 06:00 10/21/16 05:59 Oxycodone HCl 5-10mg prn moderate to sev... Q4H PRN PO 10/07/16 06:00 10/21/16 05:59 Sodium Chloride (Nss 1000ml) 1,000 ml @ 150 mls/hr Q6H40M IV 10/06/16 14:10 11/05/16 14:09 10/06/16 16:35 150 MLS/HR Acetaminophen 1000 mg 1,000 mg Q8H PRN PO 10/06/16 14:15 11/05/16 14:14 UNV Acetaminophen (Ofirmev Iv) 100 ml @ 400 mls/hr Q8H PRN IV 10/06/16 14:15 11/05/16 14:14 UNV Naloxone HCl (Narcan Inj) 0.1 mg Q5M PRN IV 10/06/16 14:15 11/05/16 14:14 Senna/Docusate Sodium (Senokot S Tab) 2 tab HS PO 10/06/16 21:00 11/05/16 20:59 UNV Sodium Biphosphate/ Sodium Phosphate (Fleet Enema) 132 ml ONE PRN ME 10/06/16 14:15 11/05/16 14:14 Hydroxyzine HCl (Vistaril Tab) 25 mg Q8H PRN PO 10/06/16 14:15 11/05/16 14:14 UNV Al Hydroxide/Mg Hydroxide (Maalox Susp) 30 ml Q6H PRN PO 10/06/16 14:15 11/05/16 14:14 Famotidine (Pepcid Tab) 20 mg Q12 PRN PO 10/06/16 14:15 11/05/16 14:14 UNV Diphenhydramine HCl (Benadryl Cap) 25 mg Q6H PRN PO 10/06/16 14:15 11/05/16 14:14 Miscellaneous Information (Discontinue PLATE DEVELOPER) 1 ea TODAY@0600 N/A 10/07/16 06:00 10/07/16 06:01 Naloxone HCl (Narcan Inj) 0.1 mg Q5M PRN IV 10/06/16 14:15 10/07/16 06:00 Hydromorphone HCl 25 mg 25 mg PRN PRN IV 10/06/16 14:15 10/07/16 06:00 10/06/16 16:08 25 MG Sodium Chloride (Nss 1000ml) 1,000 ml @ 15 mls/hr Q24H IV 10/06/16 14:10 10/07/16 06:00 Albuterol (Ventolin Hfa Inhaler) 2 puffs Q4H PRN INH 10/06/16 14:15 11/05/16 14:14 Amitriptyline HCl (Elavil Tab) 100 mg HS PO 10/06/16 21:00 11/05/16 20:59 UNV Aspirin (Ecotrin Tab) 81 mg QAM PO 10/07/16 09:00 11/06/16 08:59 UNV Carvedilol (Coreg Tab) 12.5 mg BID PO 10/06/16 21:00 11/05/16 20:59 UNV Duloxetine HCl (Cymbalta Cap) 60 mg QAM PO 10/07/16 09:00 11/06/16 08:59 UNV Levothyroxine Sodium (Synthroid Tab) 200 mcg QAM PO 10/07/16 09:00 11/06/16 08:59 UNV Lisinopril (Zestril Tab) 20 mg QAM PO 10/07/16 09:00 11/06/16 08:59 UNV Mirtazapine (Remeron Tab) 15 mg HS PO 10/06/16 21:00 11/05/16 20:59 UNV Non-Formulary Medication (Buspirone Hcl ) 7.5 mg BID PO 10/06/16 21:00 11/05/16 20:59 UNV Non-Formulary Medication (Paroxetine (Paroxetine HCl)) 40 mg QAM PO 10/07/16 09:00 11/06/16 08:59 UNV Review of Systems Constitutional: + sweats, No chills, No fatigue, No fever Eyes: No diplopia, No discharge ENT: No hearing loss, No nasal symptoms, No sore throat Respiratory: + cough, No dyspnea at rest (nonproductive), No dyspnea on exertion, No shortness of breath Cardiovascular: No chest pain, No palpitations Abdomen: No constipation, No diarrhea, No nausea, No pain, No vomiting Musculoskeletal: No calf pain, No joint pain, No swelling Genitourinary - Female: No dysuria Neurologic: No numbness/tingling, No paralysis, No weakness Psychiatric: No anxiety, No depression symptoms Endocrine: No fatigue Integumentary: No itch, No rash Physical Exam Date Time Temp Pulse Resp B/P Pulse Ox O2 Delivery O2 Flow Rate FiO2 10/06/16 16:47 37.1 85 18 97/66 96 Nasal Cannula 4.0 10/06/16 15:45 36.7 80 16 124/55 100 Nasal Cannula 4 10/06/16 15:35 36.7 83 16 97/46 100 Nasal Cannula 4 10/06/16 15:25 84 16 94/68 100 Nasal Cannula 4 10/06/16 15:15 84 16 111/70 100 Nasal Cannula 4 10/06/16 15:05 88 16 145/95 100 Mask 10 10/06/16 14:55 88 16 130/76 100 Mask 10 10/06/16 14:45 37.0 89 16 139/66 99 Mask 10 10/06/16 09:56 36.8 79 20 120/75 99 Room Air General Appearance: WD/WN, no apparent distress, + obese, + pertinent finding ( diaphoretic on her forehead) Head: normocephalic, atraumatic Eyes: PERRL, EOMI ENT: hearing grossly normal, pharynx normal Neck: supple, thyroid normal Respiratory/Chest: chest non-tender, lungs clear, normal breath sounds, no respiratory distress, + pertinent finding (wearing 2 L via NC) Cardiovascular: regular rate, rhythm, no gallop, no JVD, no murmur Abdomen/GI: normal bowel sounds, non tender, soft, no organomegaly, + pertinent finding (obese) Extremities/Musculoskelatal: normal inspection, no calf tenderness, no pedal edema Neurologic/Psych: patient sitter II-XII nml as tested, no motor/sensory deficits, alert, oriented x 3, + pertinent finding (Strength in lower extremities is 5/5 bilaterally, no sensory deficits.) Skin: normal color, warm/dry Laboratory Results Last 24 Hours Test 10/06/16 09:41 10/06/16 14:55 Bedside Glucose 174 mg/dl 142 mg/dl Assessment & Plan This is a 66 yo F with PMHx of HTN, hyperlipidemia, DM II, osteoarthritis, obesity with BMI= 41.5, hypothyroidism, depression and anxiety who was admitted under orthopedic services for lumbar stenosis and underwent a L4-S1 lumbar decompression fusion by Dr. Min on 10/06/16. S/p L4-S1 decompression fusion by Dr. Cristobal on 10/06/16 - Analgesia on board, bowel regimen - No anticoagulation with spinal surgery - PT/OT - Other management per primary team HTN - Cont asa 81 mg, carvedilol 12.5 mg BID, lisinopril 20 mg daily - lebatolol 5 mg IV prn for hypertension with holding parameters DM II - Will restart insulin regimen tonight with 25 % reduction - Glargine 22 U tonight with pt eating normally. Continue 7 U QAM starting tomorrow morning, and then increased HS dosing to her normal outpatient regimen tomorrow night = 30 U QHS. - Continue to hold metformin for now, likely can restart this tomorrow if oral intake is good - ISS with accuchecks on board Hypothyroidism - Cont levothyroxine 200 mcg daily Depression/Anxiety - Cont amitryptiline 100 mg QHS for sleep - Cont cymbalta 60 mg QD, paroxetine 40 mg QAM for depression - Cont Vistaril 25 mg Q6H prn anxiety and buspirone 7.5 mg BID for anxiety Osteoarthritis - Vit D supplement DVT ppx: teds, scds, no anticoagulation chemically with back surg Disposition: From home, PT/OT on board, will need rehab after discharge. Reviewed: Pt Seen/Exam by Me History Pt is doing well post-op. Occasional back pain, but tolerable. Ate without issue. No chest pain or SOB. Agree with HPI/ROS as noted. General Appearance: WD/WN, no apparent distress Respiratory: normal breath sounds, no respiratory distress Cardiovascular: normal peripheral pulses, regular rate, rhythm Gastrointestinal: non tender, soft Extremities: non-tender, no pedal edema Neurologic/Psychiatric: alert, oriented x 3 Skin Characteristics: normal color, warm/dry Assessment/Plan Agree with plan as outlined above Doing well post-op Resume DM meds as tolerated
[2016-10-06] MEDS ORDERED: POLYETHYLENE (MIRALAX) 17 GM PACK PO PRN (17:45)
[2016-10-06] MEDS ORDERED: GLUCAGON FOR INJ 1 MG VIAL SQ PRN (17:45)
[2016-10-06] MEDS ORDERED: GLUCOSE 10 TABS/TUBE PO PRN (17:45)
[2016-10-06] MEDS ORDERED: DEXTROSE 50% 50 ML SYR IV PRN (17:45)
[2016-10-06] MEDS ORDERED: GLUCOSE 40% GEL 15 GM TUBE PO PRN (17:45)
[2016-10-06] MEDS: CLINDAMYCIN IV 600 MG in DEXTROSE 5% ADD-VANTAGE 50ML 50 ML IV SCH (20:46)
[2016-10-06] MEDS: DEXAMETHASONE INJ 6 MG in SYRINGE 0 ML IV SCH (20:46)
[2016-10-06] MEDS ORDERED: INSULIN GLARGINE SOLOSTAR 100 UNITS/ML 3 ML PEN SC ONE (21:00)
--- NOTE | 2016-10-06 21:01 | OPERATIVE REPORT ---
DATE OF OPERATION: 10/06/2016 PREOPERATIVE DIAGNOSES: Spinal stenosis, spondylolisthesis. POSTOPERATIVE DIAGNOSIS: Same. PROCEDURE PERFORMED: 1. Lumbar decompression, medial facetectomy, and foraminotomy L3-L4, L4-L5, L5-S1. 2. Posterior spinal fusion L4-5, L5-S1. 3. Placement posterior segmental instrumentation using rods and screws L4-5, L5-S1. 4. Placement of locally harvested morselized autograft posterior gutters. 5. Placement of Infuse collagen sponge combined with Mastergraft and Torri bone graft in the posterolateral gutters. SURGEON: Dr. Miguel Min. CORPORATE HEALTH CONSULTANT: Due to the complex nature of the procedure, the entire surgery was performed with the judicial administrative assistant of Prasad Murry PA-C. The commercial loan assistant, under direct supervision, was involved in the actual performance of all aspects of the surgical procedure including hemostasis, tissue retraction and incision, instrument management, patient positioning, and wound closure. ANESTHESIA: General. DISPOSITION: The patient awakened and taken to PACU in stable condition. HISTORY OF PATIENT'S PROBLEMS: This is a 66-year-old female who presents with above-mentioned diagnosis. After failing an extensive course of nonoperative care, elected to undergo the above-mentioned procedure. Risks, benefits, pros, cons, and alternatives were outlined in detail preoperatively. PROCEDURE: The patient was met with preoperatively, the case discussed and all questions were addressed. At that point, the patient was taken back to operative suite and after undergoing successful general intubation by the department of anesthesia was placed in prone position on Jordon table atop Kai frame. All bony prominences were well padded and the eyes were inspected to ensure there was no external pressure placed upon them. At this point, the lumbar spine was prepped and draped in normal sterile fashion. Sharp dissection with assistance of Bovie cautery was performed down to and exposing the lamina and transverse processes of L4, L5 and sacral ala bilaterally. From a caudal to cephalad fashion, complete laminectomy of L5, L4, partial laminectomy of L3 was performed addressing severe lateral recess and foraminal stenosis. Pedicle screws were then placed in L4, L5 and S1 levels bilaterally with fluoroscopy and appropriate size jericho locked into position. A crosslink locked into position. Transverse processes of L4, L5 and sacral ala burred to subcortical bleeding bone. Infuse collagen sponge combined with Mastergraft and locally harvested morcellized autograft was placed in the posterior gutters, some Torri. A 7 flat VIOLET drain was inserted. Incision was then closed with 1-0 Vicryl in the fascia, 2-0 Vicryl subcutaneously, 4-0 Monocryl for final skin closure. Steri-Strips and sterile dressing placed. The patient was awakened and taken to PACU in stable condition. I attest to the content of the Intraoperative Record and any orders documented therein. Any exceptio ns are noted below.
[2016-10-06] MEDS: INSULIN ASPART 100 UNITS/ML 3 ML PEN SC SCH (21:39)
[2016-10-06] MEDS: AMITRIPTYLINE HCL 100 MG TAB PO SCH (21:41)
[2016-10-06] MEDS: DOCUSATE SODIUM/SENNA 50/8.6MG TAB PO SCH (21:42)
[2016-10-06] MEDS: CARVEDILOL 12.5 MG TAB PO SCH (21:43)
[2016-10-06] MEDS: MIRTAZAPINE TAB 15 MG TAB PO SCH (21:43)
[2016-10-06] MEDS: BusPIRone 15 MG TAB PO SCH (21:44)
[2016-10-07] VITALS (9 sets, daily range): BP systolic 96–143; BP diastolic 58–82; PULSE 74–91; TEMP 36.4–36.9; O2SAT 88–96
[2016-10-07] MEDS: DEXAMETHASONE INJ 6 MG in SYRINGE 0 ML IV SCH ×2 (03:45→12:38)
[2016-10-07] MEDS: SODIUM CHLORIDE 0.9% 1000ML 1,000 ML IV SCH (03:45)
[2016-10-07] MEDS: CLINDAMYCIN IV 600 MG in DEXTROSE 5% ADD-VANTAGE 50ML 50 ML IV SCH (03:45)
[2016-10-07] MEDS: INSULIN ASPART 100 UNITS/ML 3 ML PEN SC SCH ×5 (04:10→21:10)
[2016-10-07] MEDS ORDERED: NURSING VERBAL MED ORDER ONE ×2 (04:15→07:15)
[2016-10-07] MEDS ORDERED: DC PCA SCH (06:00)
[2016-10-07] MEDS: OXYCODONE HCL IR 5 MG TAB (IMMEDIATE RELEASE) PO PRN ×3 (06:13→18:37)
[2016-10-07] MEDS: LEVOTHYROXINE 200 MCG TAB PO SCH (06:14)
[2016-10-07 06:31] LABS: BASO % 0.1 %; BASO ABS # 0.01 K/uL (0-0.2); HEMATOCRIT 27.6 % (37-47); IG% 0.2 %; LYMPH % 4.7 %; LYMPH ABS # 0.44 K/uL (1.2-3.4); MEAN CELL VOLUME 79.3 fL (80-100); MEAN CORPUSCULAR HEMOGLOBIN 25.3 pg (25-34); MEAN CORPUSCULAR HGB CONC 31.9 g/dl (32-36); MONO % 2.2 %; NEUT % 92.8 %; PLATELET COUNT 278 K/uL (130-400); RED BLOOD COUNT 3.48 M/uL (4.2-5.4); WHITE BLOOD COUNT 9.39 K/uL (4.8-10.8)
[2016-10-07 07:05] LABS: BUN/CREATININE RATIO 16.5 (10-20); CALCIUM 8.1 mg/dl (8.5-10.1); CREATININE 1.1 mg/dl (0.60-1.20)
[2016-10-07 07:06] LABS: COMPLETE YES
[2016-10-07] MEDS: PAROXETINE 20 MG TAB PO SCH (08:48)
[2016-10-07] MEDS: DULOXETINE HCL 60 MG CAP PO SCH (08:49)
[2016-10-07] MEDS: LISINOPRIL 20 MG TAB PO SCH (08:49)
[2016-10-07] MEDS: ASPIRIN 81 MG ECTAB PO SCH (08:50)
[2016-10-07] MEDS: CARVEDILOL 12.5 MG TAB PO SCH ×2 (08:50→21:01)
[2016-10-07] MEDS: BusPIRone 15 MG TAB PO SCH ×2 (08:51→21:00)
[2016-10-07] MEDS: INSULIN GLARGINE SOLOSTAR 100 UNITS/ML 3 ML PEN SC SCH ×2 (08:57→21:11)
--- NOTE | 2016-10-07 10:26 | PROGRESS NOTE ---
DATE: 10/07/2016 DATE: 10/07/2016. SUBJECTIVE: Postop day 1. Back pain controlled. Leg pain improved. Vital signs stable. T-max 36.5. VIOLET drained 115. Hematocrit this a.m. 27.6. OBJECTIVE: On exam the patient is in chair at bedside. Has good strength to testing, appears comfortable. ASSESSMENT: Status post lumbar decompression and fusion. PLAN: At this time, will continue physical therapy, advance her bowel regimen and anticipate home with home health in the next few days.
[2016-10-07] MEDS ORDERED: RXC5 PO (10:29)
--- NOTE | 2016-10-07 10:30 | Discharge Instructions ---
Discharge Instructions Date of Service October 07, 2016. Admission Reason for Admission: Lumbar Spinal Stenosis Discharge Discharge Diagnosis / Problem: stenosis Discharge Goals Goal(s): Improve function Activity Recommendations Activity Limitations: per Instructions/Follow-up section . Instructions / Follow-Up Instructions / Follow-Up ACTIVITY RECOMMENDATIONS: SELF CARE INSTRUCTIONS AFTER THORACIC/LUMBAR FUSIONS 1. You may walk to your tolerance. It is good exercise for your legs and back. Expect some back and intermittent leg aches and pains. 2. You may perform "counter-top" level activities (make a sandwich, topher with a project, etc.). 3. No bending or lifting of more than 10 pounds or back twisting of any nature (roll like a log when turning in bed). 4. You may ride in a car for 20-30 minutes at a time. No driving until after your first visit with your doctor. 5. Frequent changes of position and restricting sitting to 30 minutes at a time will help limit the amount of back spasms and stiffness you may experience. 6. You may discontinue the use of ambulatory aids (cane, crutches, etc.) once your strength and confidence allow. 7. You may insurance claims supervisor the shower and let water strike your incision when you arrive home at least once daily. Do not take a tub bath, sit in a hot tub or go into a swimming pool until after your first recheck in the office. SPECIAL CARE INSTRUCTIONS: VERY IMPORTANT TO READ AND REVIEW A. Your surgical incision has been closed with a cosmetic suture under the skin that will dissolve in about 6 weeks. In 14 days, you can use a pair of clean scissors and cut the suture that is left outside of the skin at the ends of your incision. 1. The small skin tapes can be removed 7 days after surgery if they have not fallen off by that point. 2. You may keep the wound open to air as much as possible to promote healing after post-op day number 5 unless told otherwise by your doctor. 3. If you think the wound looks like it is becoming infected (redness or worsening drainage) and/or you are experiencing fever, chill or worsening back pain and muscle spasms, contact the office so that we may evaluate you as soon as possible. B. Complications are uncommon, but please contact us if you have any signs or symptoms of: 1. wound infection (fever higher than 102.5 degrees F, redness, separation of wound, drainage, or increasing pain from the incision) 2. blood clots in legs (pain, swelling, redness and warmth in legs) 3. urinary tract infection (fever higher than 102.5 degrees F, burning upon urination or increased frequency of urination) 4. nerve problems (inability to walk on your toes or heels, numbness, loss of bowel or bladder control) 5. any other symptoms that concern you C. Please call the office at if you have any concerns or questions about your operation or recovery. D. No smoking! Smoking drastically decreases the chance of a solid fusion. E. Do not take any anti-inflammatory medications (Indocin, Advil, Motrin, Aspirin, Naprosyn, etc.) as these may inhibit the chance of a solid fusion. Tylenol is okay to take for pain. MANAGING PAIN AFTER SPINAL SURGERY 1. Narcotic medication is intended for short-term use and will be provided for surgical pain. Surgical pain usually lasts for a period of 4-6 weeks. Narcotic medication includes Percocet, Vicodin, Darvocet, Tylenol #3 or Lortab. 2. Longer-term pain is more appropriately treated with non-narcotic medication such as Tylenol ES. 3. Muscle spasm is not appropriately treated with narcotics. Muscle relaxers such as Soma, Flexeril or Skelaxin can be used along with Tylenol ES. 4. Remember that we all live with some "aches and pains". This is not unusual or uncommon after an injury or as we get older. a. Back pain is expected and may include muscle spasms for 4 to 6 weeks after surgery. The pain should gradually improve. If the pain worsens for no apparent reason, please contact the office. b. Intermittent leg pain may also be experienced and should not be concerned about unless it worsens for no apparent reason. If so, please contact the office. 5. We will provide appropriate medication within the normal guidelines of their prescribed use. We will also be very cautious and aware of potential abuse and extended duration of patients' medication needs. a. Pain medications are for your comfort and to assist with sleep and rest so that the tissue can heal. They are not provided in order to return to normal activity and should not be used through the day. To do so or worsening pain at night can result from ongoing tissue damage and development of tolerance to the prescribed medicine. 6. Please allow 2-3 days to process refills. Prescriptions will not be mailed but must be picked up at the office. FOLLOW UP VISIT: Keep your scheduled follow-up appointment. Any questions, please call the office at . Current Hospital Diet Patient's current hospital diet: Diabetes Type 2 Diet Discharge Diet Recommended Diet: Regular Diet Procedures Procedures Performed: L4-S1 Lumbar Laminectomy, Decompression, Pedicle Screw Fixation; L4-S1 Posterolateral Fusion, Application of Torri Allograft, Bone Morphogenetic Protein Pending Studies Studies pending at discharge: no Medical Emergencies . Who to Call and When: Medical Emergencies: If at any time you feel your situation is an emergency, please call 911 immediately. . Non-Emergent Contact Non-Emergency issues call your: Primary Care Provider . "Provider Documentation" section prepared by Miguel Min. . VTE Core Measure Inpt VTE Proph given/why not?: Dyana Diaz, SCD's
[2016-10-07] MEDS: HYDROmorphone INJ 1 MG/ML SYR IV PRN ×2 (13:26→20:56)
[2016-10-07] MEDS ORDERED: SODIUM CHLORIDE 0.65% NA SOLN 45 ML (OCEAN) PRN (17:15)
--- NOTE | 2016-10-07 17:56 | Hospitalist Progress Note ---
Hospitalist Progress Note Date of Service October 07, 2016. Subjective Pt evaluation today including: conversation w/ patient, physical exam, lab review, review of inpatient medication list Pain: pain is tolerable in the back and legs PO Intake: tolerating PO Voiding: leiva catheter in place Notes back and leg pain less after surgery, but right leg now feels "heavier" than before. No shortness of breath or calf tenderness. Tolerating food. Bowels have not moved. Constitutional: No chills, No fatigue, No fever, No problem reported, No see HPI, No sweats, No weakness, No weight loss ENT: No dental problems, No hearing loss, No nasal symptoms, No problem reported, No see HPI, No sore throat, No tinnitus, No trouble swallowing, No unusual epistaxis Respiratory: No cough, No dyspnea at rest, No dyspnea on exertion, No hemoptysis, No problem reported, No see HPI, No shortness of breath, No sputum, No wheezing Cardiovascular: No PND, No chest pain, No claudication, No edema, No orthopnea, No palpitations, No problem reported, No see HPI Abdomen: No GI bleeding, No constipation, No diarrhea, No nausea, No pain, No problem reported, No see HPI, No vomiting Musculoskeletal: + problem reported (right leg feels heavy, not as painful as before surgery) Female : + problem reported (leiva) Neurologic: + problem reported (right leg "heavy") Skin: No bleeding, No color change, No itch, No new/changing skin lesions, No problem reported, No rash, No see HPI Medications reviewed Objective Vital Signs Date Time Temp Pulse Resp B/P Pulse Ox O2 Delivery O2 Flow Rate FiO2 10/07/16 07:48 36.4 84 18 113/68 93 Room Air 10/07/16 07:30 Room Air 10/07/16 06:25 84 95 Room Air 10/07/16 03:24 96 Nasal Cannula 2.0 10/07/16 03:20 36.5 90 18 120/71 88 Nasal Cannula 1.0 10/06/16 23:20 Nasal Cannula 1.0 10/06/16 23:05 36.6 81 18 101/65 97 Room Air 3.0 10/06/16 21:47 90 123/67 10/06/16 19:29 37.1 97 18 104/64 98 Nasal Cannula 3.0 10/06/16 18:16 36.9 96 17 110/67 96 Nasal Cannula 3.0 10/06/16 17:21 Nasal Cannula 4.0 10/06/16 17:17 37.1 83 16 108/56 94 Nasal Cannula 4.0 10/06/16 17:15 Nasal Cannula 4.0 10/06/16 16:47 37.1 85 18 97/66 96 Nasal Cannula 4.0 10/06/16 15:45 36.7 80 16 124/55 100 Nasal Cannula 4 10/06/16 15:35 36.7 83 16 97/46 100 Nasal Cannula 4 10/06/16 15:25 84 16 94/68 100 Nasal Cannula 4 10/06/16 15:15 84 16 111/70 100 Nasal Cannula 4 10/06/16 15:05 88 16 145/95 100 Mask 10 10/06/16 14:55 88 16 130/76 100 Mask 10 10/06/16 14:45 37.0 89 16 139/66 99 Mask 10 10/06/16 09:56 36.8 79 20 120/75 99 Room Air Physical Exam General Appearance: no apparent distress Eyes: normal inspection ENT: hearing grossly normal, pharynx normal Neck: supple, no JVD Respiratory/Chest: chest non-tender, lungs clear, normal breath sounds, no respiratory distress Cardiovascular: regular rate, rhythm, no edema, no JVD, no murmur Abdomen: normal bowel sounds, non tender, soft Extremities: normal range of motion, non-tender, normal inspection, no pedal edema, no calf tenderness Neurologic/Psychiatric: alert, normal mood/affect, oriented x 3 Skin: normal color, warm/dry, no rash, + pertinent finding (dressing to lumbar area dry and intact. VIOLET drain with serosanguinous drainage) Laboratory Results Last 24 Hours Test 10/06/16 09:41 10/06/16 14:55 10/06/16 17:30 10/06/16 20:36 Bedside Glucose 174 mg/dl 142 mg/dl 206 mg/dl 357 mg/dl Test 10/06/16 20:42 10/07/16 03:43 10/07/16 05:38 10/07/16 08:06 Bedside Glucose 369 mg/dl 246 mg/dl 261 mg/dl White Blood Count 9.39 K/uL Red Blood Count 3.48 M/uL Hemoglobin 8.8 g/dL Hematocrit 27.6 % Mean Corpuscular Volume 79.3 fL Mean Corpuscular Hemoglobin 25.3 pg Mean Corpuscular Hemoglobin Concent 31.9 g/dl Platelet Count 278 K/uL Mean Platelet Volume 8.0 fL Neutrophils (%) (Auto) 92.8 % Lymphocytes (%) (Auto) 4.7 % Monocytes (%) (Auto) 2.2 % Eosinophils (%) (Auto) 0.0 % Basophils (%) (Auto) 0.1 % Neutrophils # (Auto) 8.71 K/uL Lymphocytes # (Auto) 0.44 K/uL Monocytes # (Auto) 0.21 K/uL Eosinophils # (Auto) 0.00 K/uL Basophils # (Auto) 0.01 K/uL RDW Standard Deviation 40.9 fL RDW Coefficient of Variation 14.3 % Immature Granulocyte % (Auto) 0.2 % Immature Granulocyte # (Auto) 0.02 K/uL Red Blood Cell Morphology Unremarkable Sodium Level 139 mmol/L Potassium Level 5.0 mmol/L Chloride Level 108 mmol/L Carbon Dioxide Level 25 mmol/L Anion Gap 6.0 mmol/L Blood Urea Nitrogen 18 mg/dl Creatinine 1.10 mg/dl Est Creatinine Clear Calc Drug Dose 56.6 ml/min Estimated GFR () 60.6 Estimated GFR (Non- 52.3 BUN/Creatinine Ratio 16.5 Random Glucose 252 mg/dl Calcium Level 8.1 mg/dl Assessment and Plan 66 year old female seen on consult from Dr. Min S/P L4-S1 decompression and instrumented fusion on 10/06/16. 1. L4-S1 decompression and fusion - PO day #1. Pain controlled. Right leg less painful than prior to surgery, but feels "heavier" - CMS to BLE good, no calf tenderness. - No anticoagulation with spinal surgery - Other management per orthopedics 2. Ambulatory dysfunction secondary to surgical procedure - continue PT/OT 3. HTN - slightly low with SBP in upper 90s - Cont asa 81 mg, carvedilol 12.5 mg BID, lisinopril 20 mg daily - may need to decrease BP meds if remains low - lebatolol 5 mg IV prn for hypertension with holding parameters 4. DM II - Basal bolus with SSI 5. Hypothyroidism - Cont levothyroxine 200 mcg daily 6. Depression/Anxiety - Cont amitryptiline at [facility] - Cont Cymbalta /paroxetine - Cont Vistaril and buspirone for anxiety 7. Osteoarthritis - Vit D supplement 8. DVT prophylaxis: TEDS/SCDs, no anticoagulation chemically with back surgery 9. Disposition: From home, PT/OT on board, PT recommending acute rehab. Continued [facility] stay due to: ambulation difficulties Discharge planning: rehab hospital
[2016-10-07] MEDS: AMITRIPTYLINE HCL 100 MG TAB PO SCH (20:53)
[2016-10-07] MEDS: MIRTAZAPINE TAB 15 MG TAB PO SCH (20:54)
[2016-10-07] MEDS: DOCUSATE SODIUM/SENNA 50/8.6MG TAB PO SCH (20:54)
[2016-10-08] MEDS: OXYCODONE HCL IR 5 MG TAB (IMMEDIATE RELEASE) PO PRN ×4 (03:29→18:46)
[2016-10-08] MEDS: POLYETHYLENE (MIRALAX) 17 GM PACK PO SCH ×3 (05:20→18:47)
[2016-10-08] MEDS: LEVOTHYROXINE 200 MCG TAB PO SCH (05:21)
[2016-10-08 07:12] VITALS: BP 96/63; PULSE 73; TEMP 36.8; O2SAT 95
[2016-10-08] MEDS: CARVEDILOL 12.5 MG TAB PO SCH ×2 (09:00→20:43)
[2016-10-08] MEDS: DULOXETINE HCL 60 MG CAP PO SCH (09:02)
[2016-10-08] MEDS: BusPIRone 15 MG TAB PO SCH ×2 (09:05→20:44)
[2016-10-08] MEDS: LISINOPRIL 20 MG TAB PO SCH (09:06)
[2016-10-08] MEDS: ASPIRIN 81 MG ECTAB PO SCH (09:06)
[2016-10-08] MEDS: PAROXETINE 20 MG TAB PO SCH (09:06)
[2016-10-08] MEDS: INSULIN ASPART 100 UNITS/ML 3 ML PEN SC SCH ×4 (09:13→21:20)
[2016-10-08] MEDS: INSULIN GLARGINE SOLOSTAR 100 UNITS/ML 3 ML PEN SC SCH ×2 (09:14→21:21)
--- NOTE | 2016-10-08 09:23 | PROGRESS NOTE ---
DATE: 10/08/2016 SUBJECTIVE: Postop day #2. Back pain is controlled. Leg pain is improved. Vital signs are stable. T-max is 36.8. VIOLET drained 70 mL. On exam, the patient is in chair at the bedside and appears comfortable. ASSESSMENT: Status post lumbar decompression and fusion. PLAN: At this time, we will continue physical therapy and advance her bowel regimen. Anticipate discharge to [facility] on Sunday or Sunday.
[2016-10-08] MEDS: HYDROmorphone INJ 1 MG/ML SYR IV PRN ×3 (10:35→20:47)
--- NOTE | 2016-10-08 13:50 | Hospitalist Progress Note ---
Hospitalist Progress Note Date of Service October 08, 2016. Subjective Pt evaluation today including: conversation w/ patient, physical exam, lab review, review of inpatient medication list Pain: pain worse today - back, right lateral leg and left lateral thigh PO Intake: tolerating PO Voiding: leiva catheter in place pain worse today. back, bilateral lateral thigh, right >left. controlled with Percocet. no nausea. has not moved bowels. no calf tenderness or SOB Constitutional: No chills, No fatigue, No fever, No problem reported, No see HPI, No sweats, No weakness, No weight loss ENT: No dental problems, No hearing loss, No nasal symptoms, No problem reported, No see HPI, No sore throat, No tinnitus, No trouble swallowing, No unusual epistaxis Respiratory: No cough, No dyspnea at rest, No dyspnea on exertion, No hemoptysis, No problem reported, No see HPI, No shortness of breath, No sputum, No wheezing Cardiovascular: No PND, No chest pain, No claudication, No edema, No orthopnea, No palpitations, No problem reported, No see HPI Abdomen: No GI bleeding, No constipation, No diarrhea, No nausea, No pain, No problem reported, No see HPI, No vomiting Musculoskeletal: + problem reported (back and leg pain - no weakness) Neurologic: No balance problems, No memory loss, No numbness/tingling, No paralysis, No problem reported, No see HPI, No vertigo, No weakness Psychiatric: No anhedonism, No anxiety, No depression symptoms, No insomnia , No problem reported, No see HPI, No substance abuse Skin: + problem reported (dressing back), No bleeding, No color change, No itch, No new/changing skin lesions, No rash, No see HPI Medications reviewed Objective Vital Signs Date Time Temp Pulse Resp B/P Pulse Ox O2 Delivery O2 Flow Rate FiO2 10/08/16 07:40 Room Air 10/08/16 07:12 36.8 73 18 96/63 95 Room Air 10/07/16 23:15 Room Air 10/07/16 23:15 36.8 79 18 104/58 94 Room Air 10/07/16 20:59 91 143/82 10/07/16 15:35 Room Air 10/07/16 15:30 36.8 81 18 98/65 94 Room Air 10/07/16 14:27 86 96 Physical Exam General Appearance: no apparent distress Eyes: sclerae normal ENT: hearing grossly normal, pharynx normal Neck: supple, no JVD Respiratory/Chest: lungs clear, normal breath sounds, no respiratory distress Cardiovascular: regular rate, rhythm, no edema, no murmur Abdomen: normal bowel sounds, non tender, soft (obese) Extremities: normal range of motion, normal inspection, no pedal edema Neurologic/Psychiatric: no motor/sensory deficits, alert, oriented x 3 Skin: normal color, warm/dry, no rash, + pertinent finding (dressing on back dry and intact - VIOLET still draining serosanguinous fluid) Laboratory Results Last 24 Hours Test 10/07/16 17:24 10/07/16 20:50 10/08/16 08:08 10/08/16 12:20 Bedside Glucose 247 mg/dl 258 mg/dl 143 mg/dl 215 mg/dl Assessment and Plan 66 year old female seen on consult from Dr. Min S/P L4-S1 decompression and instrumented fusion on 10/06/16. 1. L4-S1 decompression and fusion - PO day #2. Pain worse today, but controlled. - right leg still "heavy" but working. - CMS to BLE good, no calf tenderness. - No anticoagulation with spinal surgery - Other management per orthopedics 2. Ambulatory dysfunction secondary to surgical procedure - continue PT/OT - waiting on bed at [facility] 3. HTN - slightly low with SBP in upper 90s at times, however last evening was in the 140s - Cont asa 81 mg, carvedilol 12.5 mg BID, lisinopril 20 mg daily - may need to decrease BP meds if remains low 4. DM II - Basal bolus with SSI 5. Hypothyroidism - Cont levothyroxine 200 mcg daily 6. Depression/Anxiety - Cont amitryptiline at [facility] - Cont Cymbalta /paroxetine - Cont Vistaril and buspirone for anxiety 7. Osteoarthritis - Vit D supplement 8. DVT prophylaxis: TEDS/SCDs, no anticoagulation chemically with back surgery 9. Disposition: From home, PT/OT on board. Possible bed at [facility] on Sunday Continued [facility] stay due to: ambulation difficulties Discharge planning: rehab hospital
[2016-10-08 15:30] VITALS: BP 102/65; PULSE 89; TEMP 36.6; O2SAT 93
[2016-10-08 16:00] VITALS: O2SAT 93
[2016-10-08] MEDS: AMITRIPTYLINE HCL 100 MG TAB PO SCH (20:43)
[2016-10-08] MEDS: DOCUSATE SODIUM/SENNA 50/8.6MG TAB PO SCH (20:43)
[2016-10-08] MEDS: MIRTAZAPINE TAB 15 MG TAB PO SCH (20:44)
[2016-10-09] VITALS: BP 97/61; PULSE 84; TEMP 36.7; O2SAT 97
[2016-10-09] MEDS: POLYETHYLENE (MIRALAX) 17 GM PACK PO SCH ×5 (00:04→23:55)
[2016-10-09] MEDS: OXYCODONE HCL IR 5 MG TAB (IMMEDIATE RELEASE) PO PRN ×5 (00:10→22:13)
[2016-10-09] MEDS: LEVOTHYROXINE 200 MCG TAB PO SCH (06:03)
[2016-10-09 06:46] VITALS: BP 107/75; PULSE 86; TEMP 36.7; O2SAT 94
[2016-10-09] MEDS: INSULIN GLARGINE SOLOSTAR 100 UNITS/ML 3 ML PEN SC SCH ×2 (08:05→21:20)
[2016-10-09] MEDS: INSULIN ASPART 100 UNITS/ML 3 ML PEN SC SCH ×4 (08:06→21:21)
[2016-10-09] MEDS: PAROXETINE 20 MG TAB PO SCH (08:09)
[2016-10-09] MEDS: DULOXETINE HCL 60 MG CAP PO SCH (08:09)
[2016-10-09] MEDS: BusPIRone 15 MG TAB PO SCH ×2 (08:09→21:14)
[2016-10-09] MEDS: CARVEDILOL 12.5 MG TAB PO SCH ×2 (08:10→21:17)
[2016-10-09] MEDS: ASPIRIN 81 MG ECTAB PO SCH (08:10)
[2016-10-09] MEDS: LISINOPRIL 20 MG TAB PO SCH (09:24)
[2016-10-09 15:15] VITALS: BP 91/59; PULSE 84; TEMP 36.7; O2SAT 94
[2016-10-09 16:00] VITALS: O2SAT 94
[2016-10-09 21:10] VITALS: BP 114/67; PULSE 81
[2016-10-09] MEDS: MIRTAZAPINE TAB 15 MG TAB PO SCH (21:13)
[2016-10-09] MEDS: AMITRIPTYLINE HCL 100 MG TAB PO SCH (21:14)
[2016-10-09] MEDS: DOCUSATE SODIUM/SENNA 50/8.6MG TAB PO SCH (21:14)
[2016-10-09 23:30] VITALS: BP 96/57; PULSE 90; TEMP 37; O2SAT 95
[2016-10-10] MEDS: POLYETHYLENE (MIRALAX) 17 GM PACK PO SCH (06:00)
[2016-10-10] MEDS: LEVOTHYROXINE 200 MCG TAB PO SCH (06:00)
[2016-10-10] MEDS ORDERED: NURSING VERBAL MED ORDER ONE (06:15)
[2016-10-10 07:54] VITALS: BP 92/55; PULSE 85; TEMP 36.7; O2SAT 98
--- NOTE | 2016-10-10 08:01 | Anesthesiology Progress Note ---
Anesthesia Post Op Note Date & Time October 10, 2016 at 08:00 Vital Signs Pain Intensity: 8.0 Vital Signs Past 12 Hours Date Time Temp Pulse Resp B/P Pulse Ox O2 Delivery O2 Flow Rate FiO2 10/10/16 07:54 36.7 85 16 92/55 98 Room Air 10/09/16 23:55 Room Air 10/09/16 23:30 37.0 90 20 96/57 95 Room Air 10/09/16 21:39 Room Air 10/09/16 21:10 81 114/67 Notes Mental Status: alert / awake / arousable, participated in evaluation Pt Amnestic to Procedure: Yes Nausea / Vomiting: adequately controlled Pain: adequately controlled Airway Patency, RR, SpO2: stable & adequate BP & HR: stable & adequate Hydration State: stable & adequate Anesthetic Complications: no major complications apparent
[2016-10-10] MEDS: OXYCODONE HCL IR 5 MG TAB (IMMEDIATE RELEASE) PO PRN (08:07)
[2016-10-10] MEDS: PAROXETINE 20 MG TAB PO SCH (08:08)
[2016-10-10] MEDS: CARVEDILOL 12.5 MG TAB PO SCH (08:09)
[2016-10-10] MEDS: LISINOPRIL 20 MG TAB PO SCH (08:09)
[2016-10-10] MEDS: ASPIRIN 81 MG ECTAB PO SCH (08:09)
[2016-10-10] MEDS: DULOXETINE HCL 60 MG CAP PO SCH (08:09)
[2016-10-10] MEDS: BusPIRone 15 MG TAB PO SCH (08:10)
[2016-10-10 08:31] VITALS: O2SAT 98
[2016-10-10] MEDS: INSULIN GLARGINE SOLOSTAR 100 UNITS/ML 3 ML PEN SC SCH (09:12)
[2016-10-10] MEDS: INSULIN ASPART 100 UNITS/ML 3 ML PEN SC SCH (09:13)
--- NOTE | 2016-10-10 09:46 | DISCHARGE SUMMARY ---
PRINCIPAL DIAGNOSIS: Spinal stenosis. HOSPITAL COURSE FOLLOWS: On October 06, the patient underwent lumbar decompression and fusion, tolerated this well and taken to the orthopedic floor postoperatively. Postop day #1, 2 and 3, she progressed appropriately. VIOLET drain decreasing appropriately. Bowels were working well. Subsequently on October 10, the patient was discharged to rehab. Discharge orders and instructions found on the chart for further review.
[2016-10-10 10:34] VITALS: BP 92/55; PULSE 85; TEMP 36.7; O2SAT 98
== END 2016-10-10 12:00 | DRG 460 ==
LOC: ENRESERVDT → ENRESERVTM → C.ACU 09:01 → C.3E 11:30
PROVIDERS: ADMIT Orthopaedic Surgery Orthopaedic Surgery of the Spine; ATTEND Orthopaedic Surgery Orthopaedic Surgery of the Spine
PROC: 0SG30A1 (ICD-10-PCS; principal; 2016-10-06 12:45)
PROC: 0SG30J1 Fusion of Lumbosacral Joint with Synthetic Substitute, Posterior Approach, Posterior Column, Open Approach (ICD-10-PCS; principal; 2016-10-06 12:45)
PROC: 0SG00J1 Fusion of Lumbar Vertebral Joint with Synthetic Substitute, Posterior Approach, Posterior Column, Open Approach (ICD-10-PCS; principal; 2016-10-06 12:45)
DX: M48.06 Spinal stenosis, lumbar region (principal); I10 Essential (primary) hypertension; E11.9 Type 2 diabetes mellitus without complications; E03.9 Hypothyroidism, unspecified; F32.9 Major depressive disorder, single episode, unspecified; F41.9 Anxiety disorder, unspecified; M19.90 Unspecified osteoarthritis, unspecified site

== ENCOUNTER → 2016-12-22 | Outpatient (CLI) | payer OTHER ==
[~2016-12-22] MED LIST changes: -CEFAZOLIN 2000 MG/60 ML D5W IV SCH; -LACTATED RINGER'S 1000ML 1,000 ML IV SCH; +RXC5 PO
--- NOTE | 2016-12-22 13:35 | DIAGNOSTIC IMAGING REPORT ---
CT LUMBAR SPINE WITHOUT CT DOSE: 571.56 mGycm CLINICAL HISTORY: LUMBAR SPINE PAIN BILATERAL LEG RADICULOPATHY. TECHNIQUE: Helical images were acquired in transverse plane. Reformatted sagittal and coronal images were reviewed. A dose lowering technique was utilized adhering to the principles of ALARA. CONTRAST: No contrast was administered COMPARISON STUDY: 08/04/2016 FINDINGS: Resolution is somewhat limited due to the patient's very large body habitus. There is a transitional vertebra with sacralization of the L5 vertebra T12-L1 level: There is no evidence of significant disc bulge or focal herniation. There is no evidence of spinal or foraminal stenosis. L1-2 level: There is a mild circumferential disc bulge. There is no significant spinal or foraminal stenosis L2-3 level: There is a circumferential disc bulge. There is mild triangular spinal canal narrowing. There is no significant foraminal narrowing L3-4 level: There are postsurgical changes of a posterior laminectomy. There is evidence of pedicle screw spinal fusion at the L3-4 and L4-5 levels. There is artifact secondary to the metallic hardware. There is a grade 1 spinal listhesis of L3 on L4 L4-L5 level: Postlaminectomy changes are visualized. There is evidence of a spinal fusion. There is marked disc space narrowing. There is artifact from the hardware. IMPRESSION: 1. Examination degraded due to the patient's large body habitus, and artifact from metallic hardware 2. Interval posterior laminectomies at the L3 and L4 levels 3. Interval posterior spinal fusion at the L3-4 and L4-5 levels 4. Minor transverse spinal canal narrowing at the L2-3 level 5. Transitional vertebra with sacralization of the L5 vertebral body Electronically signed by: Francis Epperson M.D. 12/22/2016 1:34 PM Dictated Date/Time: 12/22/2016 1:25 PM
== END | disposition home or self-care (01) ==
LOC: C.CTS 12:45
PROVIDERS: ATTEND Orthopaedic Surgery Orthopaedic Surgery of the Spine
DX: M54.5 Low back pain (principal); M53.86 Other specified dorsopathies, lumbar region; Z98.1 Arthrodesis status

== ENCOUNTER 2017-05-16 18:04 | Inpatient (IN) | payer OTHER ==
[~2017-05-16] VITALS: Ht 157.5 cm; Wt 105.7 kg
--- NOTE | 2017-05-16 18:12 | EMERGENCY ROOM VISIT NOTE ---
History Report prepared by Amrita: Alex Holcomb Under the Supervision of: Dr. Maldonado Carr D.O. First contact with patient: 17:58 Chief Complaint: FALL Stated Complaint: FALL, L SIDE PAIN History of Present Illness The patient is a 66 year old female who presents to the Emergency Room with complaints of worsening bilateral rib cage pain that began prior to arrival due to a fall. Patient states that she fell entering the bathtub and fell again when she was getting out. She describes the pain as "hurting like a burger". She denies hitting her head. She denies pain in her back or hips. She states that she had to crawl in order to get back onto her feet. Patient adds that having to crawl to get back up after she falls is normal. Patient is present with her daughter and . Daughter states that she has chronic severe weakness in her legs that prevents her from getting up the stairs on a daily basis. Daughter adds that this is not the first time that the patient has fallen. Patient states she is allergic to Augmentin and Penicillin. She denies taking blood thinners. Source of History: patient, family (Daughter) Onset: Prior to arrival Position: chest Timing: worsening Associated Symptoms: No back pain Note: Patient denies hip pain. Review of Systems See HPI for pertinent positives & negatives. A total of 10 systems reviewed and were otherwise negative. 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 Surgical Problems: (1) History of appendectomy (2) History of esophageal surgery (3) Hx of shoulder surgery (4) S/p bilateral carpal tunnel release (5) S/P cataract surgery (6) S/P hysterectomy (7) S/P thyroidectomy Family History Cancer Diabetes mellitus Heart disease Hypertension Kidney disease Kidney stones Lung disease Social History Smoking Status: Never Smoker Alcohol Use: none Drug Use: none Marital Status: Housing Status: lives alone Occupation Status: employed Current/Historical Medications Scheduled Amitriptyline HCl (Amitriptyline HCl), 200 MG PO HS Aspirin (Aspirin Ec), 81 MG PO QAM Buspirone Hcl (Buspirone Hcl), 7.5 MG PO BID Carvedilol (Carvedilol), 12.5 MG PO BID Cholecalciferol (Vitamin D3), 2,000 UNITS PO DAILY Duloxetine HCl (Duloxetine HCl), 60 MG PO QAM Fluticasone Propionate (Nasal) (Flonase Allergy Relief), 2 SPRAYS MARLENI DAILY Insulin Glargine (Lantus Solostar), 7 UNITS SC QAM Insulin Glargine (Lantus Solostar), 30 UNITS SC QPM Levothyroxine Sodium (Levothyroxine Sodium), 200 MCG PO QAM Lisinopril (Lisinopril), 20 MG PO QAM Metformin Hcl (Glucophage), 1,000 MG PO BIDM Mirtazapine (Remeron), 15 MG PO HS Paroxetine (Paroxetine HCl), 40 MG PO QAM Paroxetine (Paxil), 20 MG PO QAM Scheduled PRN Esomeprazole Magnesium (Nexium), 20 MG PO DAILY PRN for GI Upset Allergies Coded Allergies: Amoxicillin (Verified Adverse Reaction, Unknown, nausea, 05/16/17) Clavulanic Acid (Verified Adverse Reaction, Unknown, nausea, 05/16/17) Penicillins (Verified Adverse Reaction, Unknown, NAUSEA/VOMITING, 05/16/17) Physical Exam Vital Signs Date Time Temp Pulse Resp B/P (MAP) Pulse Ox O2 Delivery O2 Flow Rate FiO2 05/16/17 23:52 88 18 126/68 95 Room Air 05/16/17 22:07 86 16 118/69 94 Room Air 05/16/17 20:29 84 18 131/81 99 Room Air 05/16/17 18:19 37.0 82 20 138/76 95 Room Air Physical Exam GENERAL: Patient is awake, alert, and in no acute distress. Patient is resting comfortably and showing no signs of anxiety EYES: The conjunctivae are clear. The pupils are round and reactive. EARS, NOSE, MOUTH AND THROAT: The nose is without any evidence of any deformity. Mucous membranes are moist tongue is midline NECK: The neck is nontender and supple. RESPIRATORY: Normal respiratory effort is noted there is no evidence of wheezing rhonchi or rales CARDIOVASCULAR: Regular rate and rhythm noted there no murmurs rubs or gallops normal S1 normal S2 GASTROINTESTINAL: The abdomen is soft. Bowel sounds are present in all quadrants. Abdomen is nontender BACK: No midline tenderness or or step-off noted range of motion in flexion extension as well as rotation no signs of muscle spasm noted MUSCULOSKELETAL/EXTREMITIES: Bilateral flank tenderness to palpitation. No ecchymosis was appreciated SKIN: There is no obvious evidence of any rash. There are no petechiae, pallor or cyanosis noted. NEUROLOGIC: Patient is awake alert and oriented x3 Medical Decision & Procedures ER Provider Diagnostic Interpretation: Radiology results as stated below per my review and radiologist interpretation: ABD/PELVIS IV AND ORAL CONT CLINICAL HISTORY: 66 years-old Female presenting with fall. TECHNIQUE: Multidetector CT of the abdomen and pelvis was performed after the administration of oral and intravenous contrast. IV contrast: None. A dose lowering technique was used consistent with the principles of ALARA (as low as reasonably achievable). COMPARISON: None. CT DOSE (mGy.cm): The estimated cumulative dose is 2174.67 inclusive of the chest CT. FINDINGS: Tag Press Operator topogram: Bilateral shoulder arthroplasties. Gastric band. Lumbar fusion hardware. Lung bases: Minimal basilar opacities, likely atelectasis. Normal heart size. No pericardial or pleural effusion. Liver: Normal morphology. No liver lesion. Patent hepatic vasculature. Biliary: No intrahepatic or extrahepatic biliary ductal dilatation. Normal gallbladder. Pancreas: Moderate parenchymal atrophy. Spleen: Normal. Adrenal glands: Normal. Kidneys and ureters: Cortical thinning suggested bilaterally. Punctate nonobstructing calculus in the interpolar region of the right kidney. No left renal calculi. No hydronephrosis. Bladder: Allowing for underdistention, there is mild circumferential bladder wall thickening. Pelvic organs: Uterus surgically absent. Bowel: Large stool burden. No bowel obstruction. Evidence of gastric banding. No gross evidence of small bowel wall thickening. Peritoneal cavity: No free fluid or intraperitoneal gas. Lymph nodes: No enlarged lymph nodes in the abdomen or pelvis. Vasculature: Aorta and IVC patent and normal in caliber. Abdominal wall: Infraumbilical midline ventral surgical scar with trace amount of fluid, likely seroma. Nonspecific subcutaneous edema in the posterior lumbar region. Musculoskeletal: Degenerative changes of the spine. Bilateral transpedicular screw and jericho fixation of L3-L5. IMPRESSION: 1. No acute intra-abdominal injury. 2. Large stool burden consistent with constipation. 3. Mild circumference of bladder wall thickening could suggest cystitis. Correlate with urinalysis. Alternatively, this could be due to underdistention. 4. Small seroma in the midline ventral surgical scar. 5. Postsurgical changes of gastric banding. 6. Nonobstructing punctate right renal calculus. Electronically signed by: Beka Newton M.D. 05/16/2017 9:02 PM (CHEST) THORAX WITH CLINICAL HISTORY: 66 years-old Female presenting with fal. TECHNIQUE: Multidetector CT imaging of the chest was performed after the administration of intravenous contrast. IV contrast: 115 mL of Optiray 320. A dose lowering technique was used consistent with the principles of ALARA (as low as reasonably achievable). COMPARISON: 03/01/2014. CT DOSE (mGy.cm): The estimated cumulative dose is 2174.67 mGy.cm. FINDINGS: Tag Press Operator topogram: Bilateral shoulder arthroplasties, gastric banding, and posterior lumbar fusion hardware. On soft tissue windows, normal thyroid and thoracic inlet. No axillary, supraclavicular, hilar, or mediastinal lymphadenopathy. Normal aorta. Allowing for suboptimal timing of contrast for evaluation of the pulmonary arterial tree, there are bilateral filling defects within lower lobe pulmonary arteries affecting the lobar, segmental, and subsegmental arteries in the left lower lobe and segmental and subsegmental arteries in the right lower lobe. Normal heart size. No pericardial or pleural effusion. Postsurgical changes of gastric banding. On lung windows, minimal dependent changes likely atelectasis. No other focal nodule or infiltrate. Airways patent. On bone windows, bilateral shoulder arthroplasties. Degenerative change of the thoracic spine. Acute minimally displaced fracture of the right lateral eighth rib. Cortical deformities of the right fourth and fifth lateral ribs consistent with age-indeterminate fractures. Sclerotic lesion in the T3 vertebral body, indeterminate. IMPRESSION: 1. Acute bilateral pulmonary emboli suspected affecting the left lower lobe to a greater degree than the right lower lobe. 2. Acute fracture of the right lateral eighth rib. 3. Additional cortical deformities of right fourth and fifth lateral ribs represent age-indeterminate fractures. Correlate for point tenderness to assess for acuity. 4. Indeterminate sclerotic lesion in the T3 vertebral body. 5. No other evidence of intrathoracic injury. The report will be called/faxed according to standard departmental protocol. Electronically signed by: Beka Newton M.D. 05/16/2017 9:10 PM Laboratory Results 05/16/17 18:40 Red Blood Count 4.02, Mean Corpuscular Volume 76.4, Mean Corpuscular Hemoglobin 23.1, Mean Corpuscular Hemoglobin Concent 30.3, Mean Platelet Volume 7.9, Neutrophils (%) (Auto) 77.4, Lymphocytes (%) (Auto) 13.1, Monocytes (%) (Auto) 5.8, Eosinophils (%) (Auto) 2.7, Basophils (%) (Auto) 0.5, Neutrophils # (Auto) 6.83, Lymphocytes # (Auto) 1.15, Monocytes # (Auto) 0.51, Eosinophils # (Auto) 0.24, Basophils # (Auto) 0.04 05/16/17 18:40 Test 05/16/17 18:40 05/16/17 18:48 05/16/17 21:20 White Blood Count 8.81 K/uL (4.8-10.8) Red Blood Count 4.02 M/uL (4.2-5.4) Hemoglobin 9.3 g/dL (12.0-16.0) Hematocrit 30.7 % (37-47) Mean Corpuscular Volume 76.4 fL (80-100) Mean Corpuscular Hemoglobin 23.1 pg (25-34) Mean Corpuscular Hemoglobin Concent 30.3 g/dl (32-36) Platelet Count 287 K/uL (130-400) Mean Platelet Volume 7.9 fL (7.4-10.4) Neutrophils (%) (Auto) 77.4 % Lymphocytes (%) (Auto) 13.1 % Monocytes (%) (Auto) 5.8 % Eosinophils (%) (Auto) 2.7 % Basophils (%) (Auto) 0.5 % Neutrophils # (Auto) 6.83 K/uL (1.4-6.5) Lymphocytes # (Auto) 1.15 K/uL (1.2-3.4) Monocytes # (Auto) 0.51 K/uL (0.11-0.59) Eosinophils # (Auto) 0.24 K/uL (0-0.5) Basophils # (Auto) 0.04 K/uL (0-0.2) RDW Standard Deviation 43.7 fL (36.4-46.3) RDW Coefficient of Variation 15.5 % (11.5-14.5) Immature Granulocyte % (Auto) 0.5 % Immature Granulocyte # (Auto) 0.04 K/uL (0.00-0.02) Prothrombin Time 9.5 SECONDS (9.0-12.0) Prothromb Time International Ratio 0.9 (0.9-1.1) Activated Partial Thromboplast Time 22.9 SECONDS (21.0-31.0) Partial Thromboplastin Ratio 0.9 Est Creatinine Clear Calc Drug Dose 52.2 ml/min Estimated GFR () 53.5 Estimated GFR (Non- 46.1 BUN/Creatinine Ratio 16.4 (10-20) Calcium Level 8.8 mg/dl (8.5-10.1) Total Bilirubin 0.2 mg/dl (0.2-1) Direct Bilirubin < 0.1 mg/dl (0-0.2) Aspartate Amino Transf (AST/SGOT) 10 U/L (15-37) Alanine Aminotransferase (ALT/SGPT) 19 U/L (12-78) Alkaline Phosphatase 153 U/L (45-117) Total Protein 7.1 gm/dl (6.4-8.2) Albumin 3.3 gm/dl (3.4-5.0) Lipase 148 U/L (73-393) Bedside Hemoglobin 10.2 g/dl (12.0-16.0) Bedside Hematocrit 30 % (37-47) Bedside Sodium 138 mEq/L (135-144) Bedside Potassium 4.6 mEq/L (3.3-5.0) Bedside Chloride 103 mEq/L (101-112) Bedside Total CO2 26 mEq/l (24-31) Anion Gap 15.0 mmol/L (16-25) Bedside Blood Urea Nitrogen 21 mg/dl (7-18) Bedside Creatinine 1.2 mg/dl (0.6-1.3) Bedside Glucose (other) 202 mg/dl (70-99) Bedside Ionized Calcium (Margaret) 1.20 mmol/l (1.12-1.32) Troponin I < 0.015 ng/ml (0-0.045) Pro-B-Type Natriuretic Peptide 176 pg/ml (0-900) Laboratory results per my review. Medications Administered Medications (Trade) Dose Ordered Sig/Melquiades Route Start Time Stop Time Status Last Admin Dose Admin Morphine Sulfate (MoRPHine SULFATE INJ) 4 mg Q15M PRN IV 05/16/17 18:15 05/30/17 18:14 05/17/17 00:34 4 MG Ondansetron HCl (Zofran Inj) 4 mg NOW STAT IV 05/16/17 18:13 05/16/17 18:15 DC 05/16/17 18:45 4 MG Heparin Sodium/ Dextrose (Heparin 25,000 Unit/500ml D5W) 25,000 unit STK-MED ONCE .ROUTE 05/16/17 21:57 05/16/17 21:58 DC 05/16/17 22:01 25,000 UNIT ECG Indication: other (Fall) Rate (beats per minute): 85 Rhythm: normal sinus Findings: no ectopy, other (No acute ST segment changes.) Comparison ECG Date: 03/01/2016 Change: no significant change ED Course 1808: The patient was evaluated in room C8. A complete history and physical examination were performed. 1812: Zofran Inj 4mg IV 1814: Morphine Sulfate 4mg IV 1829: Ioversol 100ml IV 2116: I reassessed the patient who is resting comfortably. 2126: Dextrose 1ea 0100: Upon reevaluation, the patient will be further evaluated. I discussed results and treatment plan with her. She verbalizes agreement and understanding. I spoke with Dr. Liam Amaral of the [facility]. The patient will be evaluated for further management and care. Medical Decision Differential diagnosis: Etiologies such as fracture, dislocation, intra-abdominal, pneumothorax, intrathoracic , intracranial, neurologic, as well as other traumatic pathologies were entertained. Additional history is obtained from the patient's family members. The patient is a 66-year-old female who presented to the emergency department after a fall. The patient states that she fell twice while trying to get out of the bathtub. She hurt both sides of her chest. She had significant pain on the right side. Patient also had some abdominal tenderness. CT the abdomen and pelvis as well as chest were obtained in the emergency department. The patient was found have signs of rib fracture as well as bilateral pulmonary emboli. The patient was started on heparin. She was treated with IV pain medication and IV antiemetics. On subsequent reevaluation she was feeling somewhat improved. I discussed the patient's laboratory and radiographic studies with her. I also discussed his case with the on-call [facility] hospitalist. They've agreed to evaluate the patient in the emergency department for further management and disposition. Medication Reconcilliation Current Medication List: was personally reviewed by me Blood Pressure Screening Patient's blood pressure: Normal blood pressure Blood pressure disposition: Did not require urgent referral Consults Time Called: 19 Consulting Physician: Dr. Liam Amaral - Hospitalist Returned Call: 26 I discussed the patient's case with Dr. Liam Amaral. The patient will be evaluated for further management. Impression Primary Impression: Anemia Additional Impressions: Fracture of rib of right side Chest pain Pulmonary embolism, bilateral Scribe Attestation The scribe's documentation has been prepared under my direction and personally reviewed by me in its entirety. I confirm that the note above accurately reflects all work, treatment, procedures, and medical decision making performed by me. Departure Information Dispostion Being Evaluated By Hospitalist Referrals No Doctor, Assigned (PCP) Forms HOME CARE DOCUMENTATION FORM, IMPORTANT VISIT INFORMATION Patient Instructions [facility] Health Problem Qualifiers Primary Impression: Anemia Anemia type: unspecified type Qualified Codes: D64.9 - Anemia, unspecified Additional Impressions: Fracture of rib of right side Encounter type: initial encounter Rib fracture type: single rib Fracture type: closed Qualified Codes: S22.31XA - Fracture of one rib, right side, initial encounter for closed fracture Chest pain Chest pain type: unspecified Qualified Codes: R07.9 - Chest pain, unspecified
[2017-05-16] MEDS ORDERED: ONDANSETRON INJ 2 MG/ML 2 ML VIAL IV STA (18:13)
[2017-05-16] MEDS ORDERED: OPTIRAY 320 IV PRN (18:30)
[2017-05-16] MEDS: MoRPHine SULFATE 4 MG/ML 1 ML CARP\\VIAL IV PRN ×2 (18:45→22:04)
[2017-05-16 18:54] LABS: BASO % 0.5 %; BASO ABS # 0.04 K/uL (0-0.2); EOS % 2.7 %; EOS ABS # 0.24 K/uL (0-0.5); HEMATOCRIT 30.7 % (37-47); HEMOGLOBIN 9.3 g/dL (12.0-16.0); IG# 0.04 K/uL (0.00-0.02); LYMPH % 13.1 %; LYMPH ABS # 1.15 K/uL (1.2-3.4); MEAN CELL VOLUME 76.4 fL (80-100); MEAN CORPUSCULAR HEMOGLOBIN 23.1 pg (25-34); MEAN CORPUSCULAR HGB CONC 30.3 g/dl (32-36); MEAN PLATELET VOLUME 7.9 fL (7.4-10.4); MONO % 5.8 %; MONO ABS # 0.51 K/uL (0.11-0.59); NEUT % 77.4 %; NEUT ABS # 6.83 K/uL (1.4-6.5); PLATELET COUNT 287 K/uL (130-400); RED CELL DISTRIBUTION WIDTH CV 15.5 % (11.5-14.5); RED CELL DISTRIBUTION WIDTH SD 43.7 fL (36.4-46.3); WHITE BLOOD COUNT 8.81 K/uL (4.8-10.8)
[2017-05-16 19:01] LABS: ISTAT CREATININE 1.2 mg/dl (0.6-1.3); ISTAT IONIZED CALCIUM 1.2 mmol/l (1.12-1.32); ISTAT POTASSIUM 4.6 mEq/L (3.3-5.0)
[2017-05-16 19:05] LABS: INR 0.9 (0.9-1.1); PTT PATIENT 22.9 SECONDS (21.0-31.0)
[2017-05-16 19:13] LABS: ALBUMIN 3.3 gm/dl (3.4-5.0); ALT/SGPT 19 U/L (12-78); BLOOD UREA NITROGEN 20 mg/dl (7-18); CALCIUM 8.8 mg/dl (8.5-10.1); CARBON DIOXIDE 27 mmol/L (21-32); CREATININE 1.22 mg/dl (0.60-1.20); GLUCOSE 203 mg/dl (70-99); LIPASE 148 U/L (73-393); POTASSIUM 4.4 mmol/L (3.5-5.1); SODIUM 136 mmol/L (136-145)
[2017-05-16 19:37] LABS: ALKALINE PHOSPHATASE 153 U/L (45-117); AST/SGOT 10 U/L (15-37); TOTAL PROTEIN 7.1 gm/dl (6.4-8.2)
[2017-05-16] MEDS ORDERED: CHOL2000 PO (20:25)
[2017-05-16] MEDS ORDERED: ESOM20CA PO (20:25)
[2017-05-16] MEDS ORDERED: FLUT0.15 NAE (20:25)
[2017-05-16] MEDS ORDERED: PARO1TAB27 PO (20:25)
--- NOTE | 2017-05-16 21:03 | DIAGNOSTIC IMAGING REPORT ---
ABD/PELVIS IV AND ORAL CONT CLINICAL HISTORY: 66 years-old Female presenting with fall. TECHNIQUE: Multidetector CT of the abdomen and pelvis was performed after the administration of oral and intravenous contrast. IV contrast: None. A dose lowering technique was used consistent with the principles of ALARA (as low as reasonably achievable). COMPARISON: None. CT DOSE (mGy.cm): The estimated cumulative dose is 2174.67 inclusive of the chest CT. FINDINGS: Fairground Operator topogram: Bilateral shoulder arthroplasties. Gastric band. Lumbar fusion hardware. Lung bases: Minimal basilar opacities, likely atelectasis. Normal heart size. No pericardial or pleural effusion. Liver: Normal morphology. No liver lesion. Patent hepatic vasculature. Biliary: No intrahepatic or extrahepatic biliary ductal dilatation. Normal gallbladder. Pancreas: Moderate parenchymal atrophy. Spleen: Normal. Adrenal glands: Normal. Kidneys and ureters: Cortical thinning suggested bilaterally. Punctate nonobstructing calculus in the interpolar region of the right kidney. No left renal calculi. No hydronephrosis. Bladder: Allowing for underdistention, there is mild circumferential bladder wall thickening. Pelvic organs: Uterus surgically absent. Bowel: Large stool burden. No bowel obstruction. Evidence of gastric banding. No gross evidence of small bowel wall thickening. Peritoneal cavity: No free fluid or intraperitoneal gas. Lymph nodes: No enlarged lymph nodes in the abdomen or pelvis. Vasculature: Aorta and IVC patent and normal in caliber. Abdominal wall: Infraumbilical midline ventral surgical scar with trace amount of fluid, likely seroma. Nonspecific subcutaneous edema in the posterior lumbar region. Musculoskeletal: Degenerative changes of the spine. Bilateral transpedicular screw and jericho fixation of L3-L5. IMPRESSION: 1. No acute intra-abdominal injury. 2. Large stool burden consistent with constipation. 3. Mild circumference of bladder wall thickening could suggest cystitis. Correlate with urinalysis. Alternatively, this could be due to underdistention. 4. Small seroma in the midline ventral surgical scar. 5. Postsurgical changes of gastric banding. 6. Nonobstructing punctate right renal calculus. Electronically signed by: Beka Newton M.D. 05/16/2017 9:02 PM Dictated Date/Time: 05/16/2017 8:54 PM
--- NOTE | 2017-05-16 21:11 | DIAGNOSTIC IMAGING REPORT ---
(CHEST) THORAX WITH CLINICAL HISTORY: 66 years-old Female presenting with fal. TECHNIQUE: Multidetector CT imaging of the chest was performed after the administration of intravenous contrast. IV contrast: 115 mL of Optiray 320. A dose lowering technique was used consistent with the principles of ALARA (as low as reasonably achievable). COMPARISON: 03/01/2014. CT DOSE (mGy.cm): The estimated cumulative dose is 2174.67 mGy.cm. FINDINGS: Life Skills Worker topogram: Bilateral shoulder arthroplasties, gastric banding, and posterior lumbar fusion hardware. On soft tissue windows, normal thyroid and thoracic inlet. No axillary, supraclavicular, hilar, or mediastinal lymphadenopathy. Normal aorta. Allowing for suboptimal timing of contrast for evaluation of the pulmonary arterial tree, there are bilateral filling defects within lower lobe pulmonary arteries affecting the lobar, segmental, and subsegmental arteries in the left lower lobe and segmental and subsegmental arteries in the right lower lobe. Normal heart size. No pericardial or pleural effusion. Postsurgical changes of gastric banding. On lung windows, minimal dependent changes likely atelectasis. No other focal nodule or infiltrate. Airways patent. On bone windows, bilateral shoulder arthroplasties. Degenerative change of the thoracic spine. Acute minimally displaced fracture of the right lateral eighth rib. Cortical deformities of the right fourth and fifth lateral ribs consistent with age-indeterminate fractures. Sclerotic lesion in the T3 vertebral body, indeterminate. IMPRESSION: 1. Acute bilateral pulmonary emboli suspected affecting the left lower lobe to a greater degree than the right lower lobe. 2. Acute fracture of the right lateral eighth rib. 3. Additional cortical deformities of right fourth and fifth lateral ribs represent age-indeterminate fractures. Correlate for point tenderness to assess for acuity. 4. Indeterminate sclerotic lesion in the T3 vertebral body. 5. No other evidence of intrathoracic injury. The report will be called/faxed according to standard departmental protocol. Electronically signed by: Beka Newton M.D. 05/16/2017 9:10 PM Dictated Date/Time: 05/16/2017 9:02 PM
[2017-05-16] MEDS ORDERED: HEPARIN 25000 UNIT/500 ML D5W ONE (21:57)
[2017-05-17] VITALS (7 sets, daily range): BP systolic 95–131; BP diastolic 50–70; PULSE 76–95; TEMP 36.8–37; O2SAT 93–100; Ht 157.5 cm; Wt 105.7 kg
[2017-05-17] MEDS: MoRPHine SULFATE 4 MG/ML 1 ML CARP\\VIAL IV PRN (00:34)
[2017-05-17] MEDS ORDERED: ALUMINUM/MAGNESIUM/SIMETH (MAALOX MAX) 30 ML UDC PO PRN (00:45)
[2017-05-17] MEDS ORDERED: POLYETHYLENE (MIRALAX) 17 GM PACK PO PRN (00:45)
[2017-05-17] MEDS ORDERED: MAGNESIUM HYDROXIDE SUSP 30 ML UDC PO PRN (00:45)
[2017-05-17] MEDS ORDERED: PANTOprazole SOD 40 MG TAB PO PRN (01:00)
--- NOTE | 2017-05-17 02:20 | History and Physical ---
History & Physical Date & Time of Service: May 17, 2017 at 01:26 Chief Complaint: Fall, L Side Pain Primary Care Physician: Chavo Paz M.D. History of Present Illness Source: patient 66 y/o F Hx spinal stenosis, morbid obesity, DM, HTN, hypothyroid, osteoarthritis, frequent falls, lower extremity weakness, chronic anemia. The pt presents following a fall on her R side c/o chest wall pain. She denies SOB. She denies symptoms preceding her fall such as lightheadedness, palpitations or CP. A CT chest was obtained which confirmed at least one acute rib fracture and two additional of undetermined age. Incidentally, BL lobar PEs were reported. The pt not exhibit tachycardia, tachypnea or hypoxia. Past Medical/Surgical History 1) Morbid obesity 2) Lumbar stenosis 3) HTN 4) DM II 5) Hypothyroidism 6) HPL 7) Osteoarthritis knees 8) Opiate abuse - per ER the pt was placed on the "no narcotics" list due to frequent ER visits and drug-seeking behavior Surgical Problems: 1) Appendectomy 2) Esophageal surgery 3) Shoulder surgery 4) Bilateral carpal tunnel release 5) Cataract surgery 6) Hysterectomy 7) Thyroidectomy 8) L3-4, 4-5 laminectomy Family History Cancer Diabetes mellitus Heart disease Hypertension Kidney disease Kidney stones Lung disease Social History Smoking Status: Never Smoker Drug Use: none Marital Status: Housing status: lives alone Occupational Status: employed Immunizations History of Influenza Vaccine: Yes History of Tetanus Vaccine?: Yes History of Pneumococcal: No History of Hepatitis B Vaccine: Yes Multi-Drug Resistant Organisms History of MDRO: Yes Type of MDRO: MRSA Allergies Coded Allergies: Amoxicillin (Verified Adverse Reaction, Unknown, nausea, 05/16/17) Clavulanic Acid (Verified Adverse Reaction, Unknown, nausea, 05/16/17) Penicillins (Verified Adverse Reaction, Unknown, NAUSEA/VOMITING, 05/16/17) Home Medications Scheduled Amitriptyline HCl (Amitriptyline HCl), 200 MG PO HS Aspirin (Aspirin Ec), 81 MG PO QAM Buspirone Hcl (Buspirone Hcl), 7.5 MG PO BID Carvedilol (Carvedilol), 12.5 MG PO BID Cholecalciferol (Vitamin D3), 2,000 UNITS PO DAILY Duloxetine HCl (Duloxetine HCl), 60 MG PO QAM Fluticasone Propionate (Nasal) (Flonase Allergy Relief), 2 SPRAYS MARLENI DAILY Insulin Glargine (Lantus Solostar), 7 UNITS SC QAM Insulin Glargine (Lantus Solostar), 30 UNITS SC QPM Levothyroxine Sodium (Levothyroxine Sodium), 200 MCG PO QAM Lisinopril (Lisinopril), 20 MG PO QAM Metformin Hcl (Glucophage), 1,000 MG PO BIDM Mirtazapine (Remeron), 15 MG PO HS Paroxetine (Paroxetine HCl), 40 MG PO QAM Paroxetine (Paxil), 20 MG PO QAM Scheduled PRN Esomeprazole Magnesium (Nexium), 20 MG PO DAILY PRN for GI Upset Review of Systems Constitutional: No fever, No chills, No sweats Eyes: No worsening of vision ENT: No hearing loss, No nasal symptoms Respiratory: No cough, No sputum, No wheezing Cardiovascular: + chest pain (Chest wall pain on R) Abdomen: No pain, No nausea, No vomiting Musculoskeletal: + joint pain (Chronic back pain) Genitourinary - Female: No dysuria, No urinary frequency, No urinary urgency Neurologic: + weakness (Chronic LE weakness), No memory loss Endocrine: No fatigue Hematologic / Lymphatic: No abnormal bleeding/bruising Integumentary: No rash Physical Exam Vital Signs Date Time Temp Pulse Resp B/P (MAP) Pulse Ox O2 Delivery O2 Flow Rate FiO2 05/17/17 01:23 91 21 115/59 92 Room Air 05/16/17 23:52 88 18 126/68 95 Room Air 05/16/17 22:07 86 16 118/69 94 Room Air 05/16/17 20:29 84 18 131/81 99 Room Air 05/16/17 18:19 37.0 82 20 138/76 95 Room Air General Appearance: + pertinent finding (Morbidly obese, middle-aged female in no distress) Head: normocephalic Eyes: normal inspection ENT: normal ENT inspection, pharynx normal Neck: supple, no JVD Respiratory/Chest: lungs clear, normal breath sounds, + pertinent finding ( Pain over R chest ) Cardiovascular: regular rate, rhythm, no edema, no gallop Abdomen/GI: normal bowel sounds, non tender, soft Back: normal inspection, no CVA tenderness Extremities/Musculoskelatal: normal inspection, no calf tenderness, normal capillary refill, no pedal edema, normal range of motion Neurologic/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: 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 II-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 nml as tested, no motor/sensory deficits, alert, oriented x 3 Skin: normal color Diagnostics Laboratory Results Results Past 24 Hours Test 05/16/17 18:40 05/16/17 18:48 05/16/17 21:20 Range/Units White Blood Count 8.81 4.8-10.8 K/uL Red Blood Count 4.02 4.2-5.4 M/uL Hemoglobin 9.3 12.0-16.0 g/dL Hematocrit 30.7 37-47 % Mean Corpuscular Volume 76.4 80-100 fL Mean Corpuscular Hemoglobin 23.1 25-34 pg Mean Corpuscular Hemoglobin Concent 30.3 32-36 g/dl Platelet Count 287 130-400 K/uL Mean Platelet Volume 7.9 7.4-10.4 fL Neutrophils (%) (Auto) 77.4 % Lymphocytes (%) (Auto) 13.1 % Monocytes (%) (Auto) 5.8 % Eosinophils (%) (Auto) 2.7 % Basophils (%) (Auto) 0.5 % Neutrophils # (Auto) 6.83 1.4-6.5 K/uL Lymphocytes # (Auto) 1.15 1.2-3.4 K/uL Monocytes # (Auto) 0.51 0.11-0.59 K/uL Eosinophils # (Auto) 0.24 0-0.5 K/uL Basophils # (Auto) 0.04 0-0.2 K/uL RDW Standard Deviation 43.7 36.4-46.3 fL RDW Coefficient of Variation 15.5 11.5-14.5 % Immature Granulocyte % (Auto) 0.5 % Immature Granulocyte # (Auto) 0.04 0.00-0.02 K/uL Prothrombin Time 9.5 9.0-12.0 SECONDS Prothromb Time International Ratio 0.9 0.9-1.1 Activated Partial Thromboplast Time 22.9 21.0-31.0 SECONDS Partial Thromboplastin Ratio 0.9 Sodium Level 136 136-145 mmol/L Potassium Level 4.4 3.5-5.1 mmol/L Chloride Level 104 98-107 mmol/L Carbon Dioxide Level 27 21-32 mmol/L Anion Gap 5.0 15.0 16-25 mmol/L Blood Urea Nitrogen 20 7-18 mg/dl Creatinine 1.22 0.60-1.20 mg/dl Est Creatinine Clear Calc Drug Dose 52.2 ml/min Estimated GFR () 53.5 Estimated GFR (Non- 46.1 BUN/Creatinine Ratio 16.4 10-20 Random Glucose 203 70-99 mg/dl Calcium Level 8.8 8.5-10.1 mg/dl Total Bilirubin 0.2 0.2-1 mg/dl Direct Bilirubin < 0.1 0-0.2 mg/dl Aspartate Amino Transf (AST/SGOT) 10 15-37 U/L Alanine Aminotransferase (ALT/SGPT) 19 12-78 U/L Alkaline Phosphatase 153 45-117 U/L Total Protein 7.1 6.4-8.2 gm/dl Albumin 3.3 3.4-5.0 gm/dl Lipase 148 73-393 U/L Bedside Hemoglobin 10.2 12.0-16.0 g/dl Bedside Hematocrit 30 37-47 % Bedside Sodium 138 135-144 mEq/L Bedside Potassium 4.6 3.3-5.0 mEq/L Bedside Chloride 103 101-112 mEq/L Bedside Total CO2 26 24-31 mEq/l Bedside Blood Urea Nitrogen 21 7-18 mg/dl Bedside Creatinine 1.2 0.6-1.3 mg/dl Bedside Glucose (other) 202 70-99 mg/dl Bedside Ionized Calcium (Margaret) 1.20 1.12-1.32 mmol/l Troponin I < 0.015 0-0.045 ng/ml Pro-B-Type Natriuretic Peptide 176 0-900 pg/ml Diagnostic Radiology CT chest: 1. Acute bilateral pulmonary emboli suspected affecting the left lower lobe to a greater degree than the right lower lobe. 2. Acute fracture of the right lateral eighth rib. 3. Additional cortical deformities of right fourth and fifth lateral ribs represent age-indeterminate fractures. Correlate for point tenderness to assess for acuity. 4. Indeterminate sclerotic lesion in the T3 vertebral body. 5. No other evidence of intrathoracic injury. Impression Assessment and Plan 66 y/o F Hx spinal stenosis, morbid obesity, DM, HTN, hypothyroid, osteoarthritis, frequent falls, lower extremity weakness, chronic anemia. The pt presents following a fall on her R side c/o chest wall pain. She denies SOB. She denies symptoms preceding her fall such as lightheadedness, palpitations or CP. A CT chest was obtained which confirmed at least one acute rib fracture and two additional of undetermined age. Incidentally, BL lobar PEs were reported. The pt not exhibit tachycardia, tachypnea or hypoxia. 1) Fall/rib fractures - pt has had lower extremity weakness and increasingly frequent falls following back surgery. Initially she had refused evaluation for rehab, however, as she will now require anticoagulation, we have recommended at least short-term rehab for gait improvement and reduction of fall risk. 2) BL PE - Coumadin may be the appropriate choice due to the pts weight, fall risk and ease of reversibility. We will start Heparin and transition to Coumadin. Despite the findings of BL PEs, she does not have any related symptoms and would not meet criteria for admission based on her emboli alone. 3) DM - placed on SS and will continue Metformin, Lantus 4) HTN - cont Carvedilol, Lisinopril 5) Morbid obesity - it may be critical for her to lose weight in order to reduce her fall risk. Nutrition is consulted. 6) Hypothyroidism - cont Synthroid Full code - full dose Heparin Total time for this admit including review of labs, meds, imaging - discussion with pt and R attending - 40 min Level of Care Telemetry Resuscitation Status FULL RESUSCITATION VTE Prophylaxis VTE Risk Assessment Done? Y/N: Yes Risk Level: High Given or contraindicated: Other Anticoagulation
[2017-05-17] MEDS ORDERED: IV FLUIDS COMPLETED PRN (03:30)
[2017-05-17 04:25] LABS: PTT PATIENT 39.4 SECONDS (21.0-31.0)
[2017-05-17] MEDS: HEPARIN 25,000 UNIT/500ML D5W 500 ML IV PRN ×7 (04:53→22:48)
[2017-05-17] MEDS ORDERED: HEPARIN IV BOLUS 6,000 UNIT in SYRINGE 0 ML IV ONE (05:00)
[2017-05-17] MEDS ORDERED: WARFARIN SOD 5 MG TAB PO ONE (06:00)
[2017-05-17] MEDS: ACETAMINOPHEN 325 MG TAB PO PRN ×2 (06:37→13:23)
[2017-05-17] MEDS: LEVOTHYROXINE 200 MCG TAB PO SCH (06:44)
[2017-05-17] MEDS: CHOLECALCIFEROL 1000 INTER.UNIT TAB PO SCH (08:37)
[2017-05-17] MEDS: PAROXETINE 20 MG TAB PO SCH (08:37)
[2017-05-17] MEDS: BusPIRone 15 MG TAB PO SCH ×2 (08:38→21:04)
[2017-05-17] MEDS: ASPIRIN 81 MG ECTAB PO SCH (08:39)
[2017-05-17] MEDS: DULOXETINE HCL 60 MG CAP PO SCH (08:39)
--- NOTE | 2017-05-17 08:55 | Progress Note ---
Subjective Date of Service: May 17, 2017. Subjective Pt was having some rib pain from fractures but the majority of her pain was coming from her chronic pain after her surgery for spinal stenosis, she recognizes that her falls are likely a result of this and will agree to rehab and hopes for a referral for outpt pain management as she did have surgical intervention 09/27 for the stenosis This pt has had issues in the past with opiate use Problem List Medical Problems: (1) Anemia Status: Acute (2) Chest pain Status: Acute (3) Constipation Status: Acute (4) Contusion of left knee Status: Acute (5) Contusion of right knee Status: Acute (6) Contusion of right knee Status: Acute (7) Effusion, right knee Status: Acute (8) Fracture of rib of right side Status: Acute (9) Multiple abrasions Status: Acute (10) Postoperative infection Status: Acute (11) Pulmonary embolism, bilateral Status: Acute Social History Problems: (1) History of carpal tunnel surgery Status: Acute Review of Systems Constitutional: + weakness, + fatigue, No fever, No chills Respiratory: No cough, No shortness of breath Cardiac: No chest pain, No edema Abdomen: No pain, No nausea, No vomiting, No diarrhea Musculoskeletal: + joint pain, + muscle pain Psychiatric: + depression symptoms, + anxiety Objective Vital Signs Date Time Temp Pulse Resp B/P (MAP) Pulse Ox O2 Delivery O2 Flow Rate FiO2 05/17/17 05:30 36.8 84 20 109/50 (69) 97 Nasal Cannula 2.0 05/17/17 05:11 37.0 83 16 95/61 96 05/17/17 04:59 83 16 95/61 96 Nasal Cannula 2.0 05/17/17 04:18 37.0 84 16 95/61 Nasal Cannula 2.0 05/17/17 03:22 93 Nasal Cannula 2.0 05/17/17 03:18 88 89/43 88 Room Air 05/17/17 01:23 91 21 115/59 92 Room Air 05/16/17 23:52 88 18 126/68 95 Room Air 05/16/17 22:07 86 16 118/69 94 Room Air 05/16/17 20:29 84 18 131/81 99 Room Air 05/16/17 18:19 37.0 82 20 138/76 95 Room Air Physical Exam General Appearance: WD/WN, + moderate distress, + obese Eyes: normal inspection, sclerae normal Neck: supple Respiratory/Chest: chest non-tender, lungs clear Cardiovascular: regular rate, rhythm, no murmur Abdomen: normal bowel sounds, non tender, soft Extremities: no pedal edema, no calf tenderness Neurologic/Psychiatric: alert, oriented x 3 Laboratory Results Last 24 Hours Test 05/16/17 18:40 05/16/17 18:48 05/16/17 21:20 05/17/17 04:08 White Blood Count 8.81 K/uL Red Blood Count 4.02 M/uL Hemoglobin 9.3 g/dL Hematocrit 30.7 % Mean Corpuscular Volume 76.4 fL Mean Corpuscular Hemoglobin 23.1 pg Mean Corpuscular Hemoglobin Concent 30.3 g/dl Platelet Count 287 K/uL Mean Platelet Volume 7.9 fL Neutrophils (%) (Auto) 77.4 % Lymphocytes (%) (Auto) 13.1 % Monocytes (%) (Auto) 5.8 % Eosinophils (%) (Auto) 2.7 % Basophils (%) (Auto) 0.5 % Neutrophils # (Auto) 6.83 K/uL Lymphocytes # (Auto) 1.15 K/uL Monocytes # (Auto) 0.51 K/uL Eosinophils # (Auto) 0.24 K/uL Basophils # (Auto) 0.04 K/uL RDW Standard Deviation 43.7 fL RDW Coefficient of Variation 15.5 % Immature Granulocyte % (Auto) 0.5 % Immature Granulocyte # (Auto) 0.04 K/uL Prothrombin Time 9.5 SECONDS Prothromb Time International Ratio 0.9 Activated Partial Thromboplast Time 22.9 SECONDS 39.4 SECONDS Partial Thromboplastin Ratio 0.9 1.5 Sodium Level 136 mmol/L Potassium Level 4.4 mmol/L Chloride Level 104 mmol/L Carbon Dioxide Level 27 mmol/L Anion Gap 5.0 mmol/L 15.0 mmol/L Blood Urea Nitrogen 20 mg/dl Creatinine 1.22 mg/dl Est Creatinine Clear Calc Drug Dose 52.2 ml/min Estimated GFR () 53.5 Estimated GFR (Non- 46.1 BUN/Creatinine Ratio 16.4 Random Glucose 203 mg/dl Calcium Level 8.8 mg/dl Total Bilirubin 0.2 mg/dl Direct Bilirubin < 0.1 mg/dl Aspartate Amino Transf (AST/SGOT) 10 U/L Alanine Aminotransferase (ALT/SGPT) 19 U/L Alkaline Phosphatase 153 U/L Total Protein 7.1 gm/dl Albumin 3.3 gm/dl Lipase 148 U/L Bedside Hemoglobin 10.2 g/dl Bedside Hematocrit 30 % Bedside Sodium 138 mEq/L Bedside Potassium 4.6 mEq/L Bedside Chloride 103 mEq/L Bedside Total CO2 26 mEq/l Bedside Blood Urea Nitrogen 21 mg/dl Bedside Creatinine 1.2 mg/dl Bedside Glucose (other) 202 mg/dl Bedside Ionized Calcium (Margaret) 1.20 mmol/l Troponin I < 0.015 ng/ml Pro-B-Type Natriuretic Peptide 176 pg/ml Test 05/17/17 06:09 Bedside Glucose 137 mg/dl Assessment and Plan 66 y/o F with fall and rib fracture with incidentally noted PE's on Ct chest, no physiologic signs of PE's. Hx spinal stenosis, morbid obesity, DM, HTN, hypothyroid, osteoarthritis, frequent falls, lower extremity weakness, chronic anemia. Fall/rib fractures - pt has had lower extremity weakness and increasingly frequent falls following back surgery 09/27, recommended at least short-term rehab for gait improvement and reduction of fall risk pt is now agreeable BL PE - Coumadin may be the appropriate choice due to the pts weight, fall risk and ease of reversibility. Started Heparin and transition to Coumadin, may also consider Eliquis will discuss with pt and insurance auth. DM - placed on SS, Lantus plus metformin HTN - typically controlled with Carvedilol, Lisinopril Morbid obesity - impacts her ambulation Hypothyroidism - clinically stable Synthroid Full code - full dose Heparin is DVT treatment
[2017-05-17] MEDS ORDERED: PAROXETINE 20 MG TAB PO SCH (09:00)
[2017-05-17] MEDS ORDERED: LISINOPRIL 20 MG TAB PO SCH (09:00)
[2017-05-17] MEDS ORDERED: CARVEDILOL 12.5 MG TAB PO SCH (09:00)
[2017-05-17] MEDS: INSULIN GLARGINE SOLOSTAR 100 UNITS/ML 3 ML PEN SC SCH ×2 (09:43→21:47)
[2017-05-17] MEDS: TRAMADOL HCL 50 MG TAB PO PRN ×3 (10:26→23:34)
[2017-05-17] MEDS: INSULIN ASPART 100 UNITS/ML 3 ML PEN SC SCH ×3 (11:38→21:14)
[2017-05-17 12:19] LABS: PTT PATIENT 178.1 SECONDS (21.0-31.0)
[2017-05-17 14:32] LABS: PTT PATIENT 91.6 SECONDS (21.0-31.0)
[2017-05-17] MEDS: ONDANSETRON INJ 2 MG/ML 2 ML VIAL IV PRN (16:05)
[2017-05-17] MEDS: WARFARIN SOD 5 MG TAB PO SCH (17:10)
[2017-05-17] MEDS: AMITRIPTYLINE HCL 100 MG TAB PO SCH (21:03)
[2017-05-17] MEDS: MIRTAZAPINE TAB 15 MG TAB PO SCH (21:04)
[2017-05-17] MEDS: CARVEDILOL 6.25 MG TAB PO SCH (21:12)
[2017-05-17 21:26] LABS: PTT PATIENT 73.2 SECONDS (21.0-31.0)
[2017-05-18] VITALS (8 sets, daily range): BP systolic 104–148; BP diastolic 68–81; PULSE 78–88; TEMP 36.7–37.3; O2SAT 90–100
[2017-05-18] MEDS: ACETAMINOPHEN 325 MG TAB PO PRN (04:12)
[2017-05-18 04:48] LABS: PTT PATIENT 77.7 SECONDS (21.0-31.0)
[2017-05-18] MEDS: HEPARIN 25,000 UNIT/500ML D5W 500 ML IV PRN ×3 (05:18→18:21)
[2017-05-18] MEDS: LEVOTHYROXINE 200 MCG TAB PO SCH (05:37)
[2017-05-18] MEDS: TRAMADOL HCL 50 MG TAB PO PRN ×3 (05:39→22:17)
[2017-05-18] MEDS: BusPIRone 15 MG TAB PO SCH ×2 (08:59→21:13)
[2017-05-18] MEDS: DULOXETINE HCL 60 MG CAP PO SCH (08:59)
[2017-05-18] MEDS: ASPIRIN 81 MG ECTAB PO SCH (09:00)
[2017-05-18] MEDS: PAROXETINE 20 MG TAB PO SCH (09:00)
[2017-05-18] MEDS: CARVEDILOL 6.25 MG TAB PO SCH ×2 (09:01→21:17)
[2017-05-18] MEDS: CHOLECALCIFEROL 1000 INTER.UNIT TAB PO SCH (09:01)
[2017-05-18] MEDS: INSULIN ASPART 100 UNITS/ML 3 ML PEN SC SCH ×4 (09:07→21:15)
[2017-05-18] MEDS: INSULIN GLARGINE SOLOSTAR 100 UNITS/ML 3 ML PEN SC SCH ×2 (09:08→21:13)
[2017-05-18] MEDS: ONDANSETRON INJ 2 MG/ML 2 ML VIAL IV PRN (09:49)
[2017-05-18 11:58] LABS: PTT PATIENT 66.4 SECONDS (21.0-31.0)
[2017-05-18] MEDS: WARFARIN SOD 5 MG TAB PO SCH (15:43)
--- NOTE | 2017-05-18 18:28 | Progress Note ---
Subjective Date of Service: May 18, 2017. Subjective pt has improved pain but still limited mobility, pain now seems more acute on chronic and not just rib fracture related Problem List Medical Problems: (1) Anemia Status: Acute (2) Chest pain Status: Acute (3) Constipation Status: Acute (4) Contusion of left knee Status: Acute (5) Contusion of right knee Status: Acute (6) Contusion of right knee Status: Acute (7) Effusion, right knee Status: Acute (8) Fracture of rib of right side Status: Acute (9) Multiple abrasions Status: Acute (10) Postoperative infection Status: Acute (11) Pulmonary embolism, bilateral Status: Acute Social History Problems: (1) History of carpal tunnel surgery Status: Acute Review of Systems Constitutional: No fever, No chills Respiratory: No cough, No shortness of breath, No dyspnea on exertion Cardiac: + chest pain, No edema Abdomen: No pain, No nausea, No vomiting, No diarrhea Female : No dysuria, No urinary frequency Objective Vital Signs Date Time Temp Pulse Resp B/P (MAP) Pulse Ox O2 Delivery O2 Flow Rate FiO2 05/18/17 15:13 37.3 78 20 136/72 (93) 100 Room Air 05/18/17 11:59 36.7 80 18 128/68 (88) 92 Room Air 05/18/17 08:21 92 Room Air 05/18/17 07:55 Room Air 05/18/17 07:47 91 Room Air 05/18/17 07:37 36.9 85 18 104/72 (83) 92 Room Air 05/17/17 23:30 Nasal Cannula 2.0 05/17/17 22:56 37.0 95 22 128/69 (88) 98 Nasal Cannula 2.0 05/17/17 21:10 80 131/68 (89) 99 Nasal Cannula 2.0 Physical Exam General Appearance: + moderate distress, + obese Neck: supple, no JVD Respiratory/Chest: chest non-tender, lungs clear Cardiovascular: regular rate, rhythm, + systolic murmur Abdomen: normal bowel sounds, soft, + tenderness Extremities: no pedal edema, no calf tenderness Neurologic/Psychiatric: alert, oriented x 3 Laboratory Results Last 24 Hours Test 05/17/17 18:53 05/17/17 20:33 05/17/17 20:46 05/18/17 03:55 Urine Color YELLOW Urine Appearance CLEAR Urine pH 5.0 Urine Specific [place] 1.039 Urine Protein NEG Urine Glucose (UA) NEG Urine Ketones NEG Urine Occult Blood NEG Urine Nitrite NEG Urine Bilirubin NEG Urine Urobilinogen NEG Urine Leukocyte Esterase TRACE Urine WBC (Auto) 1-5 /hpf Urine RBC (Auto) 0-4 /hpf Urine Hyaline Casts (Auto) 0 /lpf Urine Epithelial Cells (Auto) 20-30 /lpf Urine Bacteria (Auto) 1+ Bedside Glucose 216 mg/dl Activated Partial Thromboplast Time 73.2 SECONDS 77.7 SECONDS Partial Thromboplastin Ratio 2.8 3.0 Test 05/18/17 08:00 05/18/17 11:21 05/18/17 12:10 Bedside Glucose 241 mg/dl 208 mg/dl Activated Partial Thromboplast Time 66.4 SECONDS Partial Thromboplastin Ratio 2.6 Assessment and Plan 66 y/o F with fall and rib fracture with incidentally noted PE's on Ct chest, no physiologic signs of PE's. Hx spinal stenosis, morbid obesity, DM, HTN, hypothyroid, osteoarthritis, frequent falls, lower extremity weakness, chronic anemia. Fall/rib fractures - pt has had lower extremity weakness and increasingly frequent falls following back surgery 09/27, recommended at least short-term rehab for gait improvement and reduction of fall risk pt is now agreeable to rehab and awaiting a bed assigned BL PE - remains asymptomatic, Coumadin may be the appropriate choice due to the pts weight, fall risk and ease of reversibility. Started Heparin and transition to Coumadin, can be on lovenox if goes to rehab DM - placed on SS, Lantus plus metformin, has had acceptable control HTN - Carvedilol, Lisinopril pain may influence control Morbid obesity - impacts her ambulation, plus her issues after surgery and deconditioning place her at fall risk Hypothyroidism - remains stable Synthroid Full code - full dose Heparin is DVT treatment
[2017-05-18] MEDS ORDERED: ENOXAPARIN 1 MG/KG SQ SCH (18:30)
[2017-05-18] MEDS: ENOXAPARIN 100 MG/1ML SYR SQ SCH (21:12)
[2017-05-18] MEDS: MIRTAZAPINE TAB 15 MG TAB PO SCH (21:16)
[2017-05-18] MEDS: AMITRIPTYLINE HCL 100 MG TAB PO SCH (21:16)
[2017-05-19 05:33] LABS: INR 1.2 (0.9-1.1); PTT PATIENT 33.9 SECONDS (21.0-31.0)
[2017-05-19] MEDS: LEVOTHYROXINE 200 MCG TAB PO SCH (06:23)
[2017-05-19] MEDS: ENOXAPARIN 100 MG/1ML SYR SQ SCH ×2 (06:24→18:25)
[2017-05-19] MEDS: TRAMADOL HCL 50 MG TAB PO PRN ×4 (06:31→23:46)
[2017-05-19] MEDS: ONDANSETRON INJ 2 MG/ML 2 ML VIAL IV PRN ×3 (07:44→21:28)
[2017-05-19 07:56] VITALS: BP 126/85; PULSE 84; TEMP 36.8; O2SAT 92
[2017-05-19] MEDS: INSULIN ASPART 100 UNITS/ML 3 ML PEN SC SCH ×4 (08:00→21:27)
[2017-05-19] MEDS: METFORMIN HCL 500 MG TAB PO SCH ×2 (08:55→17:42)
[2017-05-19] MEDS: BusPIRone 15 MG TAB PO SCH ×2 (08:56→21:18)
[2017-05-19] MEDS: CARVEDILOL 6.25 MG TAB PO SCH ×2 (08:57→21:16)
[2017-05-19] MEDS: DULOXETINE HCL 60 MG CAP PO SCH (08:57)
[2017-05-19] MEDS: PAROXETINE 20 MG TAB PO SCH (08:58)
[2017-05-19] MEDS: ASPIRIN 81 MG ECTAB PO SCH (08:58)
[2017-05-19] MEDS: CHOLECALCIFEROL 1000 INTER.UNIT TAB PO SCH (08:59)
[2017-05-19] MEDS: INSULIN GLARGINE SOLOSTAR 100 UNITS/ML 3 ML PEN SC SCH ×2 (09:06→21:27)
[2017-05-19 15:00] VITALS: BP 139/79; PULSE 84; TEMP 36.8; O2SAT 92
[2017-05-19] MEDS: ACETAMINOPHEN 325 MG TAB PO PRN (15:27)
[2017-05-19] MEDS: WARFARIN SOD 5 MG TAB PO SCH (15:28)
--- NOTE | 2017-05-19 16:24 | Progress Note ---
Subjective Date of Service: May 19, 2017. Subjective pt still with some pain especially in her left side. she otherwise has not new issues and no shortness of breath due to her PE's Problem List Medical Problems: (1) Anemia Status: Acute (2) Chest pain Status: Acute (3) Constipation Status: Acute (4) Contusion of left knee Status: Acute (5) Contusion of right knee Status: Acute (6) Contusion of right knee Status: Acute (7) Effusion, right knee Status: Acute (8) Fracture of rib of right side Status: Acute (9) Multiple abrasions Status: Acute (10) Postoperative infection Status: Acute (11) Pulmonary embolism, bilateral Status: Acute Social History Problems: (1) History of carpal tunnel surgery Status: Acute Review of Systems Constitutional: + weakness, + fatigue, No fever, No chills Respiratory: No cough, No shortness of breath, No dyspnea on exertion Cardiac: + edema, No chest pain Abdomen: No pain, No nausea, No vomiting, No diarrhea Musculoskeletal: + joint pain, + muscle pain, No swelling Psychiatric: No depression symptoms, No anhedonism Objective Vital Signs Date Time Temp Pulse Resp B/P (MAP) Pulse Ox O2 Delivery O2 Flow Rate FiO2 05/19/17 15:20 Room Air 05/19/17 15:00 36.8 84 20 139/79 (99) 92 Room Air 05/19/17 07:56 36.8 84 17 126/85 (99) 92 Room Air 05/19/17 07:35 Room Air 05/18/17 23:35 94 Room Air 05/18/17 23:14 36.9 88 18 136/78 (97) 90 Room Air 05/18/17 21:15 78 148/81 (103) Physical Exam General Appearance: WD/WN, + mild distress, + obese Eyes: normal inspection, PERRL, EOMI, sclerae normal Respiratory/Chest: lungs clear, normal breath sounds, + pertinent finding ( chest is tender to palpiation L>R) Cardiovascular: regular rate, rhythm, no murmur Abdomen: normal bowel sounds, soft, + tenderness Laboratory Results Last 24 Hours Test 05/18/17 17:09 05/18/17 20:33 05/19/17 04:58 05/19/17 08:06 Bedside Glucose 167 mg/dl 210 mg/dl 88 mg/dl Prothrombin Time 12.3 SECONDS Prothromb Time International Ratio 1.2 Activated Partial Thromboplast Time 33.9 SECONDS Partial Thromboplastin Ratio 1.3 Test 05/19/17 12:01 Bedside Glucose 162 mg/dl Assessment and Plan 66 y/o F with fall and rib fracture with incidentally noted PE's on Ct chest, no physiologic signs of PE's. Hx spinal stenosis, morbid obesity, DM, HTN, hypothyroid, osteoarthritis, frequent falls, lower extremity weakness, chronic anemia. Fall/rib fractures - pt has had lower extremity weakness and increasingly frequent falls following back surgery 09/27, recommended at least short-term rehab for gait improvement and reduction of fall risk pt is now agreeable to rehab [facility] for bed assignment soon BL PE - remains asymptomatic, Coumadin may be the appropriate choice due to the pts weight, fall risk and ease of reversibility. Started Heparin and transition to Coumadin, will be on lovenox if goes to rehab DM - placed on SS, Lantus plus metformin, continues acceptable control HTN - controlled with Carvedilol, Lisinopril Morbid obesity - continues to impact her ambulation, plus her issues after surgery and deconditioning place her at fall risk Hypothyroidism - clinically stable Synthroid Full code - full dose Heparin is DVT treatment
[2017-05-19] MEDS: LIDODERM (LIDOCAINE) PATCH 5% TD SCH (17:43)
[2017-05-19 21:11] VITALS: BP 153/75; PULSE 86
[2017-05-19] MEDS: POLYETHYLENE (MIRALAX) 17 GM PACK PO SCH (21:16)
[2017-05-19] MEDS: MIRTAZAPINE TAB 15 MG TAB PO SCH (21:16)
[2017-05-19] MEDS: AMITRIPTYLINE HCL 100 MG TAB PO SCH (21:17)
[2017-05-19 23:06] VITALS: BP 140/78; PULSE 82; TEMP 36.9; O2SAT 94
[2017-05-20] MEDS: TRAMADOL HCL 50 MG TAB PO PRN ×4 (06:00→17:57)
[2017-05-20] MEDS: LEVOTHYROXINE 200 MCG TAB PO SCH (06:01)
[2017-05-20] MEDS: ENOXAPARIN 100 MG/1ML SYR SQ SCH ×2 (06:01→19:16)
[2017-05-20 06:03] LABS: HEMOGLOBIN 8.8 g/dL (12.0-16.0); MEAN CELL VOLUME 76.1 fL (80-100); MEAN CORPUSCULAR HEMOGLOBIN 22.3 pg (25-34); MEAN CORPUSCULAR HGB CONC 29.3 g/dl (32-36); PLATELET COUNT 269 K/uL (130-400); RED CELL DISTRIBUTION WIDTH CV 15.4 % (11.5-14.5); RED CELL DISTRIBUTION WIDTH SD 43.2 fL (36.4-46.3); WHITE BLOOD COUNT 5.81 K/uL (4.8-10.8)
[2017-05-20 06:20] LABS: INR 1.4 (0.9-1.1); PTT PATIENT 38.5 SECONDS (21.0-31.0)
[2017-05-20 06:38] LABS: CREATININE 1.24 mg/dl (0.60-1.20)
[2017-05-20 07:20] VITALS: BP 150/81; PULSE 73; TEMP 36.5; O2SAT 95
[2017-05-20] MEDS: INSULIN ASPART 100 UNITS/ML 3 ML PEN SC SCH ×4 (08:00→21:00)
[2017-05-20] MEDS: POLYETHYLENE (MIRALAX) 17 GM PACK PO SCH ×2 (09:00→21:29)
[2017-05-20] MEDS: INSULIN GLARGINE SOLOSTAR 100 UNITS/ML 3 ML PEN SC SCH ×2 (09:11→21:33)
[2017-05-20] MEDS: METFORMIN HCL 500 MG TAB PO SCH ×2 (09:12→17:55)
[2017-05-20] MEDS: BusPIRone 15 MG TAB PO SCH ×2 (09:13→21:28)
[2017-05-20] MEDS: DULOXETINE HCL 60 MG CAP PO SCH (09:13)
[2017-05-20] MEDS: CARVEDILOL 6.25 MG TAB PO SCH ×2 (09:13→21:29)
[2017-05-20] MEDS: ASPIRIN 81 MG ECTAB PO SCH (09:14)
[2017-05-20] MEDS: PAROXETINE 20 MG TAB PO SCH (09:14)
[2017-05-20] MEDS: CHOLECALCIFEROL 1000 INTER.UNIT TAB PO SCH (09:15)
[2017-05-20] MEDS: ONDANSETRON INJ 2 MG/ML 2 ML VIAL IV PRN ×3 (09:16→23:28)
[2017-05-20 14:57] VITALS: BP 145/82; PULSE 79; TEMP 36.8; O2SAT 92
--- NOTE | 2017-05-20 15:12 | Progress Note ---
Subjective Date of Service: May 20, 2017. Subjective pt is about the same limited by pain and her pre existing issues from her failed back surgery, weakness and unsteady gait Problem List Medical Problems: (1) Anemia Status: Acute (2) Chest pain Status: Acute (3) Constipation Status: Acute (4) Contusion of left knee Status: Acute (5) Contusion of right knee Status: Acute (6) Contusion of right knee Status: Acute (7) Effusion, right knee Status: Acute (8) Fracture of rib of right side Status: Acute (9) Multiple abrasions Status: Acute (10) Postoperative infection Status: Acute (11) Pulmonary embolism, bilateral Status: Acute Social History Problems: (1) History of carpal tunnel surgery Status: Acute Review of Systems Constitutional: + weakness, + fatigue Respiratory: No cough, No sputum, No shortness of breath Cardiac: + chest pain, No orthopnea, No edema Abdomen: No pain, No nausea, No vomiting, No diarrhea Musculoskeletal: + joint pain, + muscle pain, No swelling Neurologic: + weakness, + balance problems, No memory loss Objective Vital Signs Date Time Temp Pulse Resp B/P (MAP) Pulse Ox O2 Delivery O2 Flow Rate FiO2 05/20/17 14:57 36.8 79 18 145/82 (103) 92 Room Air 05/20/17 08:00 Room Air 05/20/17 07:20 36.5 73 16 150/81 (104) 95 Room Air 05/20/17 00:15 Room Air 05/19/17 23:06 36.9 82 16 140/78 (98) 94 Room Air 05/19/17 21:11 86 153/75 (101) 05/19/17 15:20 Room Air Physical Exam General Appearance: WD/WN, + mild distress, + obese Eyes: normal inspection, sclerae normal Neck: supple, no JVD Respiratory/Chest: chest non-tender, lungs clear, normal breath sounds Cardiovascular: regular rate, rhythm, no murmur Abdomen: normal bowel sounds, non tender, soft Neurologic/Psychiatric: alert, oriented x 3 Laboratory Results Last 24 Hours Test 05/19/17 16:58 05/19/17 20:53 05/20/17 05:45 05/20/17 07:50 Bedside Glucose 165 mg/dl 166 mg/dl 128 mg/dl White Blood Count 5.81 K/uL Red Blood Count 3.94 M/uL Hemoglobin 8.8 g/dL Hematocrit 30.0 % Mean Corpuscular Volume 76.1 fL Mean Corpuscular Hemoglobin 22.3 pg Mean Corpuscular Hemoglobin Concent 29.3 g/dl RDW Standard Deviation 43.2 fL RDW Coefficient of Variation 15.4 % Platelet Count 269 K/uL Mean Platelet Volume 8.0 fL Prothrombin Time 14.9 SECONDS Prothromb Time International Ratio 1.4 Activated Partial Thromboplast Time 38.5 SECONDS Partial Thromboplastin Ratio 1.5 Creatinine 1.24 mg/dl Est Creatinine Clear Calc Drug Dose 51.0 ml/min Estimated GFR () 52.4 Estimated GFR (Non- 45.2 Test 05/20/17 11:47 Bedside Glucose 131 mg/dl Assessment and Plan 66 y/o F with fall and rib fracture with incidentally noted PE's on Ct chest, no physiologic signs of PE's. Hx spinal stenosis, morbid obesity, DM, HTN, hypothyroid, osteoarthritis, frequent falls, lower extremity weakness, chronic anemia. awaiting rehab placement Fall/rib fractures - pt has had lower extremity weakness and increasingly frequent falls following back surgery 09/27, recommended at least short-term rehab for gait improvement and reduction of fall risk pt is now agreeable to [facility] for bed assignment soon BL PE - remains asymptomatic, Coumadin may be the appropriate choice due to the pts weight, fall risk and ease of reversibility. Started Heparin and transition to Coumadin, will be on lovenox if goes to rehab DM - placed on SS, Lantus plus metformin, continues acceptable control HTN - controlled with Carvedilol, Lisinopril Morbid obesity - continues to impact her ambulation, plus her issues after surgery and deconditioning place her at fall risk Hypothyroidism - clinically stable Synthroid Full code - full dose Heparin is DVT treatment
[2017-05-20] MEDS: WARFARIN SOD 5 MG TAB PO SCH (15:31)
[2017-05-20] MEDS: LIDODERM (LIDOCAINE) PATCH 5% TD SCH (17:55)
[2017-05-20] MEDS: MIRTAZAPINE TAB 15 MG TAB PO SCH (21:30)
[2017-05-20] MEDS: AMITRIPTYLINE HCL 100 MG TAB PO SCH (21:31)
[2017-05-20 23:14] VITALS: BP 114/73; PULSE 83; TEMP 36.9; O2SAT 91
[2017-05-21] MEDS: TRAMADOL HCL 50 MG TAB PO PRN ×3 (00:05→12:52)
[2017-05-21 05:47] LABS: INR 1.6 (0.9-1.1); PTT PATIENT 39.7 SECONDS (21.0-31.0)
[2017-05-21] MEDS: ENOXAPARIN 100 MG/1ML SYR SQ SCH (06:10)
[2017-05-21] MEDS: LEVOTHYROXINE 200 MCG TAB PO SCH (06:10)
[2017-05-21 07:28] VITALS: BP 148/84; PULSE 79; TEMP 36.6; O2SAT 89
[2017-05-21] MEDS: INSULIN ASPART 100 UNITS/ML 3 ML PEN SC SCH ×2 (08:00→12:00)
[2017-05-21 08:20] VITALS: O2SAT 98
[2017-05-21] MEDS: DULOXETINE HCL 60 MG CAP PO SCH (08:49)
[2017-05-21] MEDS: BusPIRone 15 MG TAB PO SCH (08:49)
[2017-05-21] MEDS: ASPIRIN 81 MG ECTAB PO SCH (08:50)
[2017-05-21] MEDS: PAROXETINE 20 MG TAB PO SCH (08:51)
[2017-05-21] MEDS: CHOLECALCIFEROL 1000 INTER.UNIT TAB PO SCH (08:52)
[2017-05-21 08:54] VITALS: BP 121/74; PULSE 86
[2017-05-21] MEDS: CARVEDILOL 6.25 MG TAB PO SCH (08:55)
[2017-05-21] MEDS: POLYETHYLENE (MIRALAX) 17 GM PACK PO SCH (08:56)
[2017-05-21] MEDS: METFORMIN HCL 500 MG TAB PO SCH (09:45)
[2017-05-21] MEDS: INSULIN GLARGINE SOLOSTAR 100 UNITS/ML 3 ML PEN SC SCH (10:02)
[2017-05-21] MEDS: ONDANSETRON INJ 2 MG/ML 2 ML VIAL IV PRN (10:41)
[2017-05-21] MEDS ORDERED: CMD5 PO (12:34)
[2017-05-21] MEDS ORDERED: LVNIS100 SQ (12:34)
[2017-05-21] MEDS ORDERED: CRG625 PO (12:34)
[2017-05-21] MEDS ORDERED: LDDP5 TD (12:34)
[2017-05-21] MEDS ORDERED: ULT50X PO (12:34)
--- NOTE | 2017-05-21 12:37 | Discharge Instructions ---
Discharge Instructions Date of Service May 21, 2017. Admission Reason for Admission: Pulmonary Embolism, Bilateral; Rib Fracture Discharge Discharge Diagnosis / Problem: rib fractute with pain, possible failed back syndrome Discharge Goals Goal(s): Diagnostic testing, Therapeutic intervention Activity Recommendations Activity Level: Assistance Required Therapies: Physical Therapy, Occupational Therapy . Additional Information Patient informed of condition: Yes Advance Directives: Yes DNR: No Level of Care: Acute Rehab Communicable Disease: Yes Prognosis: Stable Douglas Catheter: No Instructions / Follow-Up Instructions / Follow-Up 66 y/o F with fall and rib fracture with incidentally noted PE's on Ct chest, no physiologic signs of PE's. Hx spinal stenosis, morbid obesity, DM, HTN, hypothyroid, osteoarthritis, frequent falls, lower extremity weakness, chronic anemia. Fall/rib fractures - pt has had lower extremity weakness and increasingly frequent falls following back surgery 09/27, recommended at least short-term rehab for gait improvement and reduction of fall risk BL PE - remains asymptomatic, Coumadin may be the appropriate choice due to the pts weight, fall risk and ease of reversibility. Started Heparin and transition to Coumadin, will be on lovenox until INR is appropriate. INR is 1.6 at discharge DM -, Lantus metformin, plus short acting insulin with meals HTN - has been low, reduced dose of coreg and stopped lisinopril Morbid obesity - continues to impact her ambulation, plus her issues after surgery and deconditioning place her at fall risk Hypothyroidism - clinically stable Synthroid Full code - full dose Heparin is DVT treatment Current Hospital Diet Patient's current hospital diet: Diabetes Type 2 Diet Discharge Diet Recommended Diet: Diabetes Type 2 Diet Pending Studies Studies pending at discharge: no Medical Emergencies . Who to Call and When: Medical Emergencies: If at any time you feel your situation is an emergency, please call 911 immediately. . Non-Emergent Contact Non-Emergency issues call your: Primary Care Provider Call Non-Emergent contact if: temperature is above 101, your pain is unusual for you . . "Provider Documentation" section prepared by Alex Howard. . Core Measure Problem Core Measures: None
--- NOTE | 2017-05-21 12:39 | Discharge Summary ---
Discharge Summary Date of Service May 21, 2017. Discharge Summary Admission Date: May 18, 2017 at 18:22 Discharge Date: May 21, 2017 Discharge Disposition: Rehab Principal Diagnosis: rib fractue with pain, back pain and gait instability Immunizations: Have You Had Influenza Vaccine: Yes History of Tetanus Vaccine?: Yes History of Pneumococcal: No History of Hepatitis B Vaccine: Yes Medication Reconciliation New Medications: Carvedilol (Carvedilol) 6.25 Mg Tab 6.25 MG PO BID, #60 TAB Enoxaparin (Enoxaparin Sodium) 100 Mg/Ml Inj 100 MG SQ Q12H, #10 DOSE stop when INR is > = 2.0 Lidocaine (Lidocaine) 1 Patch Tdsy 1 PATCH TD DAILY@1800, #30 PATCH Tramadol HCl (Tramadol HCl) 50 Mg Tab 100 MG PO Q6H PRN for Pain, #20 TAB Warfarin Sod (Coumadin) 5 Mg Tab 5 MG PO DAILY@16, #30 TAB may need dose adjustment for APPROPRIATE INR Continued Medications: Amitriptyline HCl (Amitriptyline HCl) 100 Mg Tab 200 MG PO HS Aspirin (Aspirin Ec) 81 Mg Tab 81 MG PO QAM Buspirone Hcl (Buspirone Hcl) 7.5 Mg Tab 7.5 MG PO BID Cholecalciferol (Vitamin D3) 2,000 Unit Cap 2000 UNITS PO DAILY for 90 Days, CAP 3 Refills Duloxetine HCl (Duloxetine HCl) 60 Mg Cap 60 MG PO QAM Esomeprazole Magnesium (Nexium) 20 Mg Cap 20 MG PO DAILY PRN for GI Upset, CAP Fluticasone Propionate (Nasal) (Flonase Allergy Relief) 50 Mcg/Act Spr 2 SPRAYS MARLENI DAILY Insulin Glargine (Lantus Solostar) 100 Unit/Ml Inj 7 UNITS SC QAM, PEN Insulin Glargine (Lantus Solostar) 100 Unit/Ml Inj 30 UNITS SC QPM, PEN Levothyroxine Sodium (Levothyroxine Sodium) 200 Mcg Tab 200 MCG PO QAM Metformin Hcl (Glucophage) 1,000 Mg Tab 1000 MG PO BIDM Mirtazapine (Remeron) 15 Mg Tab 15 MG PO HS Paroxetine (Paroxetine HCl) 40 Mg Tab 40 MG PO QAM TOTAL DOSE=60MG Paroxetine (Paxil) 20 Mg Tab 20 MG PO QAM, TAB TOTAL DOSE=60MG Discontinued Medications: Carvedilol (Carvedilol) 12.5 Mg Tab 12.5 MG PO BID Lisinopril (Lisinopril) 20 Mg Tab 20 MG PO QAM Discharge Exam Review of Systems: Constitutional: No fever, No chills, No sweats Cardiovascular: + chest pain, No edema Physical Exam: General Appearance: + mild distress, + obese Eyes: PERRL, EOMI Respiratory/Chest: chest non-tender, lungs clear, normal breath sounds Cardiovascular: regular rate, rhythm, no murmur Hospital Course 66 y/o F with fall and rib fracture with incidentally noted PE's on Ct chest, no physiologic signs of PE's. Hx spinal stenosis, morbid obesity, DM, HTN, hypothyroid, osteoarthritis, frequent falls, lower extremity weakness, chronic anemia. Fall/rib fractures - pt has had lower extremity weakness and increasingly frequent falls following back surgery 09/27, recommended at least short-term rehab for gait improvement and reduction of fall risk BL PE - remains asymptomatic, Coumadin may be the appropriate choice due to the pts weight, fall risk and ease of reversibility. Started Heparin and transition to Coumadin, will be on lovenox until INR is appropriate. INR is 1.6 at discharge DM -, Lantus metformin, plus short acting insulin with meals HTN - has been low, reduced dose of coreg and stopped lisinopril Morbid obesity - continues to impact her ambulation, plus her issues after surgery and deconditioning place her at fall risk Hypothyroidism - clinically stable Synthroid Full code - full dose Heparin is DVT treatment Total Time Spent: Greater than 30 minutes This includes examination of the patient, discharge planning, medication reconciliation, and communication with other providers. Discharge Instructions Please refer to the electronic Patient Visit Report (Discharge Instructions) for additional information.
[2017-05-21 13:32] VITALS: BP 121/74; PULSE 86; TEMP 36.6; O2SAT 98
[2017-05-21] MEDS: WARFARIN SOD 5 MG TAB PO SCH (15:13)
== END 2017-05-21 15:50 | DRG 91 ==
LOC: EDBD 18:04 → C.EDC 18:05 → C.MSICU 05-17 00:46 → EDBEDREQ 05-17 02:52 → ENRESERV 05-17 04:47 → C.MSW 05-17 12:22 → OBSVTOIN 05-18 18:22 → C.MSW 05-20 09:25
PROVIDERS: ADMIT Internal Medicine; ATTEND Internal Medicine
DX: R29.6 Repeated falls (principal); I26.99 Other pulmonary embolism without acute cor pulmonale; Z68.41 Body mass index [BMI] 40.0-44.9, adult; S22.41XA Multiple fractures of ribs, right side, initial encounter for closed fracture; W18.2XXA Fall in (into) shower or empty bathtub, initial encounter; Y93.E1 Activity, personal bathing and showering; Y92.002 Bathroom of unspecified non-institutional (private) residence as the place of occurrence of the external cause; I10 Essential (primary) hypertension; E11.9 Type 2 diabetes mellitus without complications; E89.0 Postprocedural hypothyroidism; G89.29 Other chronic pain; M48.00 Spinal stenosis, site unspecified; R26.81 Unsteadiness on feet; R53.1 Weakness; R53.81 Other malaise; M19.90 Unspecified osteoarthritis, unspecified site; D64.9 Anemia, unspecified; F11.11 Opioid abuse, in remission; E66.01 Morbid (severe) obesity due to excess calories; Z91.81 History of falling; Z86.14 Personal history of Methicillin resistant Staphylococcus aureus infection; Z75.1 Person awaiting admission to adequate facility elsewhere; Z79.82 Long term (current) use of aspirin; Z79.4 Long term (current) use of insulin; Z79.899 Other long term (current) drug therapy

== ENCOUNTER 2017-07-26 10:26 | Emergency (ER) | payer OTHER ==
[~2017-07-26] VITALS: Ht 157.5 cm; Wt 105.0 kg
[~2017-07-26 10:26] MED LIST changes: -ACET-1256 PO; -ASPI81TA28 PO; -ASTN; +CHOL2000 PO; +CMD5 PO; -CRG125 PO; +CRG625 PO; +ESOM20CA PO; +FLUT0.15 NAE; -LSN20 PO; +PARO1TAB27 PO; -POLY335025 PO; -RXC5 PO; -VNTHFA/IN INH; +WARF7.5T4 PO
[2017-07-26 10:30] VITALS: TEMP 36.7; Ht 157.5 cm; Wt 105.0 kg
[2017-07-26 11:13] VITALS: O2SAT 95
[2017-07-26] MEDS ORDERED: ALBUT/IPRATROP 3MG/0.5MG NEB 3 ML VIAL INH STA (11:23)
[2017-07-26] MEDS ORDERED: SODIUM CHLORIDE 0.9% 500ML 500 ML IV STA (11:23)
[2017-07-26] MEDS ORDERED: CRG125 PO (12:10)
[2017-07-26] MEDS ORDERED: WARF-246 PO (12:10)
[2017-07-26] MEDS ORDERED: NRN100 PO (12:10)
[2017-07-26] MEDS ORDERED: LSN20 PO (12:10)
[2017-07-26] MEDS ORDERED: SALI0.6510 NAE (12:12)
[2017-07-26] MEDS ORDERED: ASPI81TA28 PO (12:12)
[2017-07-26 12:23] LABS: BASO % 0.1 %; BASO ABS # 0.01 K/uL (0-0.2); EOS % 1.9 %; EOS ABS # 0.15 K/uL (0-0.5); HEMOGLOBIN 8.8 g/dL (12.0-16.0); IG# 0.02 K/uL (0.00-0.02); LYMPH % 10.2 %; LYMPH ABS # 0.82 K/uL (1.2-3.4); MEAN CELL VOLUME 74.9 fL (80-100); MEAN CORPUSCULAR HEMOGLOBIN 22.7 pg (25-34); MEAN CORPUSCULAR HGB CONC 30.3 g/dl (32-36); MEAN PLATELET VOLUME 7.8 fL (7.4-10.4); MONO % 4.3 %; MONO ABS # 0.35 K/uL (0.11-0.59); NEUT % 83.3 %; PLATELET COUNT 356 K/uL (130-400); RED CELL DISTRIBUTION WIDTH CV 15.8 % (11.5-14.5); RED CELL DISTRIBUTION WIDTH SD 43.3 fL (36.4-46.3); WHITE BLOOD COUNT 8.05 K/uL (4.8-10.8)
[2017-07-26 12:30] LABS: INR 1.6 (0.9-1.1)
--- NOTE | 2017-07-26 12:32 | DIAGNOSTIC IMAGING REPORT ---
CHEST ONE VIEW PORTABLE CLINICAL HISTORY: CHEST PAIN dyspnea COMPARISON STUDY: No previous studies for comparison. FINDINGS: The bones soft tissues and hemidiaphragms are normal. The cardiomediastinal silhouette is normal. The lungs are clear. The pulmonary vasculature is normal. IMPRESSION: Negative chest. The above report was generated using voice recognition software. It may contain grammatical, syntax or spelling errors. Electronically signed by: Bassem Kat M.D. 07/26/2017 12:31 PM Dictated Date/Time: 07/26/2017 12:30 PM
[2017-07-26] MEDS ORDERED: TRAMADOL HCL 50 MG TAB PO STA (12:34)
[2017-07-26 12:39] LABS: ALBUMIN 2.9 gm/dl (3.4-5.0); ALT/SGPT 23 U/L (12-78); AST/SGOT 13 U/L (15-37); BLOOD UREA NITROGEN 21 mg/dl (7-18); CALCIUM 8.8 mg/dl (8.5-10.1); CARBON DIOXIDE 25 mmol/L (21-32); CREATININE 1.21 mg/dl (0.60-1.20); GLUCOSE 223 mg/dl (70-99); LIPASE 89 U/L (73-393); POTASSIUM 4.5 mmol/L (3.5-5.1); SODIUM 138 mmol/L (136-145)
[2017-07-26 12:44] LABS: ALKALINE PHOSPHATASE 169 U/L (45-117); TOTAL PROTEIN 6.6 gm/dl (6.4-8.2)
[2017-07-26 12:45] LABS: INFLUENZA B ANTIGEN Neg for Influ B (NEG)
--- NOTE | 2017-07-26 13:06 | DIAGNOSTIC IMAGING REPORT ---
PELVIS/BILATERAL HIP 2 VIEWS CLINICAL HISTORY: pain fall trauma. Pain. COMPARISON STUDY: None FINDINGS: Mild/moderate degenerative changes of the hips bilaterally. No evidence for fracture. No evidence for acetabular protrusion. Postoperative changes of the low lumbar spine. Moderate degenerative change of the sacroiliac joints. IMPRESSION: Degenerative and postoperative change. No acute process. The above report was generated using voice recognition software. It may contain grammatical, syntax or spelling errors. Electronically signed by: Bassem Kat M.D. 07/26/2017 1:04 PM Dictated Date/Time: 07/26/2017 1:02 PM
--- NOTE | 2017-07-26 13:07 | DIAGNOSTIC IMAGING REPORT ---
R KNEE 3 VIEWS CLINICAL HISTORY: pain fall trauma. Pain. COMPARISON: None. DISCUSSION: Prior right total knee arthroplasty. Good contact between prosthetic and underlying bone. No acute bony abnormality. There is no evidence for soft tissue swelling. IMPRESSION: No acute process post right total knee arthroplasty The above report was generated using voice recognition software. It may contain grammatical, syntax or spelling errors. Electronically signed by: Bassem Kat M.D. 07/26/2017 1:05 PM Dictated Date/Time: 07/26/2017 1:05 PM
--- NOTE | 2017-07-26 13:08 | DIAGNOSTIC IMAGING REPORT ---
L KNEE 3 VIEWS CLINICAL HISTORY: pain fall trauma. Pain. COMPARISON: 06/05/2016 DISCUSSION: No acute process post total left knee arthroplasty. Good contact between prosthetic and underlying bone. There is no evidence for soft tissue swelling. IMPRESSION: No acute process post total left knee arthroplasty. The above report was generated using voice recognition software. It may contain grammatical, syntax or spelling errors. Electronically signed by: Bassem Kat M.D. 07/26/2017 1:06 PM Dictated Date/Time: 07/26/2017 1:06 PM
[2017-07-26] MEDS ORDERED: SODIUM CHLORIDE 0.9% 1000ML 1,000 ML IV STA (15:25)
[2017-07-26] MEDS ORDERED: ENOXAPARIN 1 MG/KG SQ STA (15:26)
[2017-07-26] MEDS ORDERED: ALBUT/IPRATROP 3MG/0.5MG NEB 3 ML VIAL INH ONE (15:30)
[2017-07-26] MEDS ORDERED: ENOXAPARIN 120 MG/0.8 ML SYR SQ ONE (15:45)
--- NOTE | 2017-07-26 16:06 | EMERGENCY ROOM VISIT NOTE ---
History Report prepared by Amrita: Roslyn Guerra Under the Supervision of: Dr. Malvin Snyder M.D. First contact with patient: 11:16 Chief Complaint: RESPIRATORY PROBLEMS Stated Complaint: SHORTNESS OF BREATH, DIZZY, WEAKNESS History of Present Illness The patient is a 66 year old female who presents to the Emergency Room with complaints of persistent SOB starting several days ago. Her SOB worsens with walking. The patient has been dizzy with getting up. She reports leg weakness with walking. She has fallen 2 times since yesterday. She landed on her bottom and on her knees. She denies any head injury or LOC. She was unable to get up on her own after the falls. She reports left hip pain, lower back pain, nausea, dry cough, and chills. She has been taking Tylenol for her pain to no significant relief. She denies any fever, congestion, vomiting, diarrhea, abdominal pain, or burning with urination. The patient uses a cane to walk. She does not smoke. She is on warfarin for a history of PE. She has been taking her warfarin. She is not on any inhalers or water pills. Source of History: patient Onset: several days ago Position: other (constitutional) Quality: other (SOB) Timing: other (persistent) Modifying Factors (Worsening): exertion Associated Symptoms: + chills, + cough, + nausea, + back pain, + weakness, No LOC, No fevers, No vomiting, No abdominal pain, No diarrhea, No urinary symptoms Note: Pt reports dizziness. Review of Systems See HPI for pertinent positives and negatives. A total of ten systems were reviewed and were otherwise negative. 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 Surgical Problems: (1) History of appendectomy (2) History of esophageal surgery (3) Hx of shoulder surgery (4) S/p bilateral carpal tunnel release (5) S/P cataract surgery (6) S/P hysterectomy (7) S/P thyroidectomy Family History Cancer Diabetes mellitus Heart disease Hypertension Kidney disease Kidney stones Lung disease Social History Smoking Status: Never Smoker Alcohol Use: none Drug Use: none Marital Status: Housing Status: lives alone Occupation Status: employed Current/Historical Medications Scheduled Amitriptyline HCl (Amitriptyline HCl), 100 MG PO HS Aspirin (Aspirin Ec), 81 MG PO DAILY Buspirone Hcl (Buspirone Hcl), 7.5 MG PO BID Carvedilol (Carvedilol), 1 TAB PO BID Cholecalciferol (Vitamin D3), 2,000 UNITS PO DAILY Duloxetine HCl (Duloxetine HCl), 60 MG PO QAM Fluticasone Propionate (Nasal) (Flonase Allergy Relief), 2 SPRAYS MARLENI DAILY Gabapentin (Gabapentin), 1 CAP PO UD Insulin Glargine (Lantus Solostar), 7 UNITS SC QAM Insulin Glargine (Lantus Solostar), 30 UNITS SC QPM Levothyroxine Sodium (Levothyroxine Sodium), 200 MCG PO QAM Lisinopril (Lisinopril), 1 TAB PO DAILY Metformin Hcl (Glucophage), 1,000 MG PO BIDM Mirtazapine (Remeron), 15 MG PO HS Paroxetine (Paroxetine HCl), 40 MG PO QAM Paroxetine (Paxil), 20 MG PO QAM Saline (Oxford Nasal Jeannette), 2 SPRAYS MARLENI BID Warfarin Sodium (Warfarin Sodium), 1 DOSE PO UD Scheduled PRN Esomeprazole Magnesium (Nexium), 20 MG PO DAILY PRN for GI Upset Allergies Coded Allergies: Amoxicillin (Verified Adverse Reaction, Unknown, nausea, 07/26/17) Clavulanic Acid (Verified Adverse Reaction, Unknown, nausea, 07/26/17) Penicillins (Verified Adverse Reaction, Unknown, NAUSEA/VOMITING, 07/26/17) Physical Exam Vital Signs Date Time Temp Pulse Resp B/P (MAP) Pulse Ox O2 Delivery O2 Flow Rate FiO2 07/26/17 19:15 92 18 152/82 94 07/26/17 17:56 83 25 07/26/17 17:51 83 26 92 07/26/17 17:46 84 31 94 07/26/17 17:41 85 26 95 07/26/17 17:37 152/82 3/15/18 17:36 85 22 94 3/15/18 17:31 84 26 93 3/15/18 17:26 84 26 94 3/15/18 17:21 84 37 95 3/15/18 17:16 83 94 3/15/18 16:56 86 19 3/15/18 16:51 90 25 97 3/15/18 16:46 85 29 100 3/15/18 16:41 86 22 98 3/15/18 16:36 82 24 99 3/15/18 16:31 85 100 3/15/18 16:26 84 25 98 3/15/18 16:21 81 99 3/15/18 16:16 77 87 3/15/18 16:11 77 100 3/15/18 16:06 80 100 3/15/18 16:01 79 100 3/15/18 15:56 82 99 3/15/18 15:51 81 98 3/15/18 15:46 80 95 3/15/18 15:41 81 95 3/15/18 15:36 81 97 3/15/18 15:31 78 99 3/15/18 15:26 80 98 3/15/18 15:21 77 20 145/54 97 3/15/18 15:16 80 95 3/15/18 15:11 80 97 3/15/18 15:06 79 95 3/15/18 15:01 78 21 95 3/15/18 14:56 79 19 94 3/15/18 14:51 79 24 95 3/15/18 14:46 79 22 98 3/15/18 14:41 81 19 95 3/15/18 14:36 81 22 97 3/15/18 14:31 79 17 96 3/15/18 14:26 80 21 89 3/15/18 14:21 77 25 97 3/15/18 14:16 79 30 96 3/15/18 14:11 77 34 95 3/15/18 14:06 82 97 3/15/18 14:01 77 96 3/15/18 13:56 77 21 95 3/15/18 13:51 78 20 97 3/15/18 13:49 79 24 155/69 99 Room Air 3/15/18 13:46 84 13 95 3/15/18 13:45 155/69 3/15/18 13:36 77 18 3/15/18 13:31 78 21 07/26/17 13:26 81 18 07/26/17 13:21 78 18 07/26/17 13:16 79 17 07/26/17 13:11 79 18 07/26/17 13:06 80 20 07/26/17 13:01 81 15 07/26/17 12:44 140/77 07/26/17 12:42 80/60 07/26/17 12:41 80 98 07/26/17 12:36 80 19 95 07/26/17 12:31 78 28 100 07/26/17 12:26 78 16 98 Nebulizer 07/26/17 12:26 79 20 95 07/26/17 12:21 79 22 07/26/17 12:16 78 07/26/17 12:11 78 07/26/17 12:10 78 07/26/17 11:57 152/88 07/26/17 11:13 95 Room Air 07/26/17 11:13 80 20 105/57 95 Room Air 80 110/56 85 101/51 07/26/17 10:33 93 Room Air 07/26/17 10:30 36.7 81 18 112/70 93 Room Air Physical Exam GENERAL: Awake, alert, fatigued-appearing, in no distress HENT: Normocephalic, atraumatic. Dry mucous membranes. EYES: Normal conjunctiva. Sclera non-icteric. NECK: Supple. No nuchal rigidity. FROM. No JVD. RESPIRATORY: Diminished breath sounds at the bases with scant intermittent wheezes. CARDIAC: Regular rate, normal rhythm. Extremities warm and well perfused. Pulses equal. ABDOMEN: Obese, soft, non-distended. No tenderness to palpation. No rebound or guarding. No masses. RECTAL: Deferred. MUSCULOSKELETAL: Chest examination reveals no tenderness. The back is symmetrical on inspection without obvious abnormality. There is no CVA tenderness to palpation. No joint edema. LOWER EXTREMITIES: Calves are equal size bilaterally and non-tender. No edema. No discoloration. Contusion to the bilateral knees. No significant swelling. NEURO: Normal sensorium. No sensory or motor deficits noted. SKIN: No rash or jaundice noted. Medical Decision & Procedures ER Provider Diagnostic Interpretation: Radiology results as stated below per my review and radiologist interpretation: CHEST ONE VIEW PORTABLE CLINICAL HISTORY: CHEST PAIN dyspnea COMPARISON STUDY: No previous studies for comparison. FINDINGS: The bones soft tissues and hemidiaphragms are normal. The cardiomediastinal silhouette is normal. The lungs are clear. The pulmonary vasculature is normal. IMPRESSION: Negative chest. The above report was generated using voice recognition software. It may contain grammatical, syntax or spelling errors. Electronically signed by: Bassem Kat M.D. 07/26/2017 12:31 PM Dictated Date/Time: 07/26/2017 12:30 PM PELVIS/BILATERAL HIP 2 VIEWS CLINICAL HISTORY: pain fall trauma. Pain. COMPARISON STUDY: None FINDINGS: Mild/moderate degenerative changes of the hips bilaterally. No evidence for fracture. No evidence for acetabular protrusion. Postoperative changes of the low lumbar spine. Moderate degenerative change of the sacroiliac joints. IMPRESSION: Degenerative and postoperative change. No acute process. The above report was generated using voice recognition software. It may contain grammatical, syntax or spelling errors. Electronically signed by: Bassem Kat M.D. 07/26/2017 1:04 PM Dictated Date/Time: 07/26/2017 1:02 PM L KNEE 3 VIEWS CLINICAL HISTORY: pain fall trauma. Pain. COMPARISON: 06/05/2016 DISCUSSION: No acute process post total left knee arthroplasty. Good contact between prosthetic and underlying bone. There is no evidence for soft tissue swelling. IMPRESSION: No acute process post total left knee arthroplasty. The above report was generated using voice recognition software. It may contain grammatical, syntax or spelling errors. Electronically signed by: Bassem Kat M.D. 07/26/2017 1:06 PM Dictated Date/Time: 07/26/2017 1:06 PM R KNEE 3 VIEWS CLINICAL HISTORY: pain fall trauma. Pain. COMPARISON: None. DISCUSSION: Prior right total knee arthroplasty. Good contact between prosthetic and underlying bone. No acute bony abnormality. There is no evidence for soft tissue swelling. IMPRESSION: No acute process post right total knee arthroplasty The above report was generated using voice recognition software. It may contain grammatical, syntax or spelling errors. Electronically signed by: Bassem Kat M.D. 07/26/2017 1:05 PM Dictated Date/Time: 07/26/2017 1:05 PM Laboratory Results 07/26/17 12:10 Red Blood Count 3.87, Mean Corpuscular Volume 74.9, Mean Corpuscular Hemoglobin 22.7, Mean Corpuscular Hemoglobin Concent 30.3, Mean Platelet Volume 7.8, Neutrophils (%) (Auto) 83.3, Lymphocytes (%) (Auto) 10.2, Monocytes (%) (Auto) 4.3, Eosinophils (%) (Auto) 1.9, Basophils (%) (Auto) 0.1, Neutrophils # (Auto) 6.70, Lymphocytes # (Auto) 0.82, Monocytes # (Auto) 0.35, Eosinophils # (Auto) 0.15, Basophils # (Auto) 0.01 07/26/17 12:10 Test 07/26/17 11:55 07/26/17 12:10 Influenza Type A Antigen Neg for Influ A (NEG) Influenza Type B Antigen Neg for Influ B (NEG) White Blood Count 8.05 K/uL (4.8-10.8) Red Blood Count 3.87 M/uL (4.2-5.4) Hemoglobin 8.8 g/dL (12.0-16.0) Hematocrit 29.0 % (37-47) Mean Corpuscular Volume 74.9 fL (80-100) Mean Corpuscular Hemoglobin 22.7 pg (25-34) Mean Corpuscular Hemoglobin Concent 30.3 g/dl (32-36) Platelet Count 356 K/uL (130-400) Mean Platelet Volume 7.8 fL (7.4-10.4) Neutrophils (%) (Auto) 83.3 % Lymphocytes (%) (Auto) 10.2 % Monocytes (%) (Auto) 4.3 % Eosinophils (%) (Auto) 1.9 % Basophils (%) (Auto) 0.1 % Neutrophils # (Auto) 6.70 K/uL (1.4-6.5) Lymphocytes # (Auto) 0.82 K/uL (1.2-3.4) Monocytes # (Auto) 0.35 K/uL (0.11-0.59) Eosinophils # (Auto) 0.15 K/uL (0-0.5) Basophils # (Auto) 0.01 K/uL (0-0.2) RDW Standard Deviation 43.3 fL (36.4-46.3) RDW Coefficient of Variation 15.8 % (11.5-14.5) Immature Granulocyte % (Auto) 0.2 % Immature Granulocyte # (Auto) 0.02 K/uL (0.00-0.02) Hypochromasia PRESENT Basophilic Stippling OCCASIONAL Ovalocytes 1+ Prothrombin Time 16.6 SECONDS (9.0-12.0) Prothromb Time International Ratio 1.6 (0.9-1.1) Venous Blood pH 7.39 (7.36-7.41) Venous Blood Partial Pressure CO2 46 mmHg (38.0-50.0) Venous Blood Partial Pressure O2 39 mmHg Venous Blood HCO3 27 mmol/L Venous Blood Oxygen Saturation 70.7 % Venous Blood Base Excess 1.5 mEq/L Anion Gap 8.0 mmol/L (3-11) Est Creatinine Clear Calc Drug Dose 52.0 ml/min Estimated GFR () 54.0 Estimated GFR (Non- 46.6 BUN/Creatinine Ratio 17.5 (10-20) Calcium Level 8.8 mg/dl (8.5-10.1) Total Bilirubin 0.3 mg/dl (0.2-1) Direct Bilirubin < 0.1 mg/dl (0-0.2) Aspartate Amino Transf (AST/SGOT) 13 U/L (15-37) Alanine Aminotransferase (ALT/SGPT) 23 U/L (12-78) Alkaline Phosphatase 169 U/L (45-117) Troponin I < 0.015 ng/ml (0-0.045) Pro-B-Type Natriuretic Peptide 75 pg/ml (0-900) Total Protein 6.6 gm/dl (6.4-8.2) Albumin 2.9 gm/dl (3.4-5.0) Lipase 89 U/L (73-393) Laboratory results reviewed by me Medications Administered Medications (Trade) Dose Ordered Sig/Melquiades Route Start Time Stop Time Status Last Admin Dose Admin Sodium Chloride 500 ml @ 999 mls/hr Q31M STAT IV 07/26/17 11:23 07/26/17 11:53 DC 07/26/17 12:25 999 MLS/HR Albuterol/ Ipratropium (Duoneb) 3 ml NOW STAT INH 07/26/17 11:23 07/26/17 11:33 DC 07/26/17 12:25 3 ML Tramadol HCl (Ultram Tab) 50 mg NOW STAT PO 07/26/17 12:34 07/26/17 12:35 DC 07/26/17 12:40 50 MG Sodium Chloride 1,000 ml @ 999 mls/hr Q1H1M STAT IV 07/26/17 15:25 07/26/17 16:25 DC 07/26/17 16:02 999 MLS/HR Albuterol/ Ipratropium (Duoneb) 12 ml ONE ONCE INH 07/26/17 15:30 07/26/17 15:31 DC 07/26/17 16:01 12 ML Enoxaparin Sodium (Lovenox Inj) 111 mg NOW ONCE SQ 07/26/17 15:45 07/26/17 15:46 DC 07/26/17 16:11 111 MG ECG Per My Interpretation Indication: SOB/dyspnea Rate (beats per minute): 76 Rhythm: sinus rhythm Findings: 1st degree AV block, no acute ischemic change, other (normal axis) ED Course 1121: The patient was evaluated in room C2B. A complete history and physical exam was performed. 1513: I reevaluated the patient. I discussed the test results with her. She verbalized agreement of the treatment plan. She will be referred to [facility]. Medical Decision I reviewed the patient's past medical history, medications, and the nursing notes as described above. Differential diagnosis: Etiologies such as infections, reactive airway disease, pneumonia, pneumothorax , COPD, CHF, cardiac ischemia, pulmonary embolism, musculoskeletal, gastrointestinal, as well as others were entertained. 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 On arrival the patient is fatigued but no acute distress, afebrile stable vital signs per HPI. EKG unremarkable. Chest x-ray negative. X-rays negative for fracture of the hip and pelvis and knees. INR is subtherapeutic at 1.6. Labs otherwise unremarkable including WBC within normal limits. Patient still with some shortness of breath despite single neb. The patient's subtherapeutic INR symptoms possibly related to PE however unlikely to have benefit from CT PE at this time given the patient is not hypoxic or tachypneic, given the patient is subtherapeutic there is no evidence of treatment failure. She does report feeling improved after IV fluid hydration and thus mild dehydration is likely contributing. Will give the patient a dose of Lovenox to bridge until she can become therapeutic again. He was given no evidence of objective findings at this time no indication for admission. However the patient does report generalized weakness where she feels like she does not have the strength to safely ambulate is agreeable for placement in rehab. Case management assisting for [facility] placement. [facility] physician reviewed documentation and is requesting CT PE thus this was ordered. CT negative for PE. Healing rib fractures from fall in May. Patient accepted to [facility]. Patient to travel by private vehicle with daughter. Medication Reconcilliation Current Medication List: was personally reviewed by me Blood Pressure Screening Patient's blood pressure: Normal blood pressure Blood pressure disposition: Did not require urgent referral Impression Primary Impression: Generalized weakness Additional Impression: Shortness of breath Scribe Attestation The scribe's documentation has been prepared under my direction and personally reviewed by me in its entirety. I confirm that the note above accurately reflects all work, treatment, procedures, and medical decision making performed by me. Departure Information Referrals Chavo Paz M.D. (PCP) Patient Instructions ED Dehydration, ED Dyspnea Shortness of Breath, My [facility] Additional Instructions Your symptoms are likely related to mild dehydration. Otherwise we found no objective findings to explain her shortness of breath and so your symptoms may be related to a viral upper respiratory infection. Otherwise a CT PE study was negative for any persistent pulmonary emboli and did not demonstrate any pneumonia. Given your generalized weakness you are accepted to [facility] for inpatient rehabilitation. Problem Qualifiers
[2017-07-26] MEDS ORDERED: OPTIRAY 320 IV PRN (17:30)
--- NOTE | 2017-07-26 18:24 | DIAGNOSTIC IMAGING REPORT ---
(CHEST FOR PE) ANGIO WITH CT DOSE: 687.45 mGy.cm HISTORY: 66 years-old Female with presents with acute shortness of breath and dizziness with weakness. TECHNIQUE: Multiple CTA images of the chest were obtained after the intravenous administration of 94 ml Optiray 320. Coronal and sagittal MIPS were obtained from the axial data set and were submitted for review. A dose lowering technique was utilized adhering to the principles of ALARA. COMPARISON: Chest radiograph 07/26/2017, CT chest 05/16/2017. FINDINGS: CTA: There is mild to moderate multichamber cardiac enlargement. Thoracic aorta is normal in both course and caliber without aneurysm or dissection. Imaged great vessels appear patent. Medial course of the imaged bilateral common carotid arteries. The imaged IVC appears unremarkable. The pulmonary arterial tree is opacified to the proximal segmental branches. The subsegmental branches are not well seen secondary to respiratory motion. No focal filling defects identified to suggest pulmonary thromboembolic disease. CT CHEST: Upper thorax is partially obscured secondary to bilateral shoulder arthroplasties with streak artifact. No dominant thyroid nodule identified. No pathologic adenopathy of the chest. There is no pneumothorax or pleural effusion. Minimal groundglass perihilar and subsegmental dependent right upper lobe groundglass opacities just areas of atelectasis/scarring. No lobar airspace consolidation to suggest pneumonia. 4 mm area of pleural-based nodularity of the left upper lobe is unchanged suggesting area of probable scarring. Central airways appear to be patent. Postsurgical changes of the proximal stomach. No acute mildly of the imaged upper abdomen. Soft tissues are unremarkable. Multiple healing left-sided rib fractures within the seventh, eighth ninth and 10th ribs. Multiple healing right-sided rib fractures are also noted. No acute rib fracture. The level endplate spurring about the spine. Indeterminate 11 mm sclerotic lesion of the T3 vertebral body appears unchanged. No additional suspicious lytic or blastic bony lesions are identified. IMPRESSION: 1. No acute intrathoracic abnormality identified, specifically no acute aortic pathology or evidence of pulmonary thromboembolic disease. Study however is mildly limited secondary to respiratory motion. 2. No lobar airspace consolidation or pathologic adenopathy. 3. Multiple bilateral healing rib fractures. The above report was generated using voice recognition software. It may contain grammatical, syntax or spelling errors. Electronically signed by: Ant Frank M.D. 07/26/2017 6:23 PM Dictated Date/Time: 07/26/2017 6:11 PM
[2017-07-26 19:15] VITALS: BP 152/82; PULSE 92; O2SAT 94
== END 2017-07-26 19:20 ==
LOC: C.EDB 10:27 → C.EDC 19:20
DX: R53.1 Weakness (principal); R06.02 Shortness of breath; F41.9 Anxiety disorder, unspecified; F32.9 Major depressive disorder, single episode, unspecified; E11.9 Type 2 diabetes mellitus without complications; E78.5 Hyperlipidemia, unspecified; I10 Essential (primary) hypertension; E03.9 Hypothyroidism, unspecified; E66.9 Obesity, unspecified; M19.90 Unspecified osteoarthritis, unspecified site; Z83.3 Family history of diabetes mellitus; Z82.49 Family history of ischemic heart disease and other diseases of the circulatory system; Z79.82 Long term (current) use of aspirin; Z79.4 Long term (current) use of insulin; Z79.01 Long term (current) use of anticoagulants; Z51.81 Encounter for therapeutic drug level monitoring; Z88.0 Allergy status to penicillin; Z88.8 Allergy status to other drugs, medicaments and biological substances

== ENCOUNTER 2017-08-20 17:38 | Emergency (ER) | payer OTHER ==
[~2017-08-20] VITALS: Ht 157.5 cm; Wt 102.8 kg
[~2017-08-20 17:38] MED LIST changes: +ASPI81TA28 PO; -CMD5 PO; +CRG125 PO; -CRG625 PO; +LSN20 PO; +NRN100 PO; +SALI0.6510 NAE; +WARF-246 PO; -WARF7.5T4 PO
[2017-08-20 18:05] VITALS: TEMP 37.1; Ht 157.5 cm; Wt 102.8 kg
--- NOTE | 2017-08-20 18:28 | EMERGENCY ROOM VISIT NOTE ---
History Report prepared by Amrita: Sg Degroot Under the Supervision of: Dr. Odilia Tripathi D.O. First contact with patient: 17:59 Stated Complaint: FALL, LAC ABOVE L EYE History of Present Illness The patient is a 67 year old female who presents to the Emergency Room via EMS with complaints of multiple mechanical falls that occurred earlier today at home. Per the patient's daughter, she saw the patient after the patient's first fall, and looked okay without any complaints. The patient's daughter then got a call from police that the patient had a second fall and called 911, and was going to be brought to the hospital. The patient currently complains of head pain where she has a large contusion to the forehead. She is amnestic to several periods of times throughout the day. The patient states that she was not using her walker (that she usually uses) during her first fall, and for the second fall, she does not remember if she tripped, but she does remember hitting her pet's food dish. The patient notes that she has slight abrasions to her bilateral knees, but does not complain of anything else at this time other than her head. The patient has a noted history of falls. Source of History: patient, family (daughter) Onset: Earlier today Position: other (global) Symptom Intensity: mechanical in nature, amnestic to several periods of day Quality: other (falls) Timing: other (2 episodes) Associated Symptoms: + headache (where she has contusion to forehead) Note: Sight abrasions to bilateral knees. Denies any other problems. Review of Systems See HPI for pertinent positives & negatives. A total of 10 systems reviewed and were otherwise negative. 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 Surgical Problems: (1) History of appendectomy (2) History of esophageal surgery (3) Hx of shoulder surgery (4) S/p bilateral carpal tunnel release (5) S/P cataract surgery (6) S/P hysterectomy (7) S/P thyroidectomy Family History Cancer Diabetes mellitus Heart disease Hypertension Kidney disease Kidney stones Lung disease Social History Smoking Status: Never Smoker Alcohol Use: none Drug Use: none Marital Status: Housing Status: lives alone Occupation Status: employed Current/Historical Medications Scheduled Amitriptyline HCl (Amitriptyline HCl), 100 MG PO HS Aspirin (Aspirin Ec), 81 MG PO DAILY Buspirone Hcl (Buspirone Hcl), 7.5 MG PO BID Carvedilol (Carvedilol), 1 TAB PO BID Cholecalciferol (Vitamin D3), 2,000 UNITS PO DAILY Duloxetine HCl (Duloxetine HCl), 60 MG PO QAM Fluticasone Propionate (Nasal) (Flonase Allergy Relief), 2 SPRAYS MARLENI DAILY Gabapentin (Gabapentin), 1 CAP PO UD Insulin Glargine (Lantus Solostar), 7 UNITS SC QAM Insulin Glargine (Lantus Solostar), 30 UNITS SC QPM Levothyroxine Sodium (Levothyroxine Sodium), 200 MCG PO QAM Lisinopril (Lisinopril), 1 TAB PO DAILY Metformin Hcl (Glucophage), 1,000 MG PO BIDM Mirtazapine (Remeron), 15 MG PO HS Paroxetine (Paroxetine HCl), 40 MG PO QAM Paroxetine (Paxil), 20 MG PO QAM Saline ([place] Nasal [place]), 2 SPRAYS MARLENI BID Warfarin Sodium (Warfarin Sodium), 1 DOSE PO UD Scheduled PRN Esomeprazole Magnesium (Nexium), 20 MG PO DAILY PRN for GI Upset Allergies Coded Allergies: Amoxicillin (Verified Adverse Reaction, Unknown, nausea, 07/26/17) Clavulanic Acid (Verified Adverse Reaction, Unknown, nausea, 07/26/17) Penicillins (Verified Adverse Reaction, Unknown, NAUSEA/VOMITING, 07/26/17) Physical Exam Vital Signs Date Time Temp Pulse Resp B/P (MAP) Pulse Ox O2 Delivery O2 Flow Rate FiO2 08/20/17 21:42 83 18 140/68 99 08/20/17 20:30 86 20 142/72 98 Room Air 08/20/17 19:05 86 18 148/60 98 Room Air 08/20/17 18:05 37.1 98 18 149/63 98 Room Air 08/20/17 17:58 86 Physical Exam GENERAL: patient is edentulous, alert, well appearing, well nourished, no distress, non-toxic EYE EXAM: normal conjunctiva, PERRL and EOM's grossly intact HEAD: Large contusion and what appears to be a vertical laceration to the central forehead. OROPHARYNX: no exudate, no erythema, lips, buccal mucosa, and tongue normal and mucous membranes are moist NECK: supple, no nuchal rigidity, no adenopathy, non-tender LUNGS: Clear to auscultation. Normal chest wall mechanics HEART: She has mild tenderness to palpation of the chest wall. no murmurs, S1 normal and S2 normal ABDOMEN: abdomen soft, non-tender, normo-active bowel sounds, no masses, no rebound or guarding. BACK: Back is symmetrical on inspection and there is no deformity, no midline tenderness, no CVA tenderness. SKIN: no rashes and no bruising UPPER EXTREMITIES: upper extremities are grossly normal. No deformity. Normal pulses. Normal range of motion. LOWER EXTREMITIES: No pitting edema. No deformity. Normal pulses. Normal range of motion. PELVIS: Nontender and stable. NEURO EXAM: Normal sensorium, cranial nerves II-XII grossly intact, normal speech, no gross weakness of arms, no gross weakness of legs. Medical Decision & Procedures ER Provider Diagnostic Interpretation: CT:Per my review, radiologist interpretation. CT SCAN OF THE BRAIN WITHOUT IV CONTRAST CLINICAL HISTORY: Trauma. COMPARISON STUDY: No priors. TECHNIQUE: Unenhanced axial CT scan of the brain is performed from the vertex to the skull base. A dose lowering technique was utilized adhering to the principles of ALARA. FINDINGS: Brain parenchyma: There are age-related involutional changes noting mild subcortical and periventricular microangiopathic change. There is no hemorrhage, mass effect, or evidence of acute territorial ischemia by CT criteria. Piña-white matter is preserved. No extra-axial fluid collection is seen. Ventricles, sulci, cisterns: Prominent secondary to involutional change. Intracranial vasculature: There is atherosclerotic calcification of the cavernous carotid and vertebral arteries. Calvarium: The skeletal structures are osteopenic. No depressed calvarial fracture is seen. Soft tissues: There is a left frontal scalp contusion. Sinuses and mastoids: The visualized paranasal sinuses are clear. The mastoid air cells are well pneumatized. Orbits: The bony orbits are grossly intact. There are bilateral ocular lens implants. IMPRESSION: 1. There is no hemorrhage, mass effect, or evidence of acute territorial ischemia by CT criteria. 2. Left frontal scalp contusion. No depressed calvarial fracture is seen. Electronically signed by: Tomas Can M.D. 08/20/2017 7:50 PM Dictated Date/Time: 08/20/2017 7:[address] SCAN OF THE CHEST, ABDOMEN, AND PELVIS WITH IV CONTRAST CLINICAL HISTORY: Trauma. COMPARISON STUDY: Chest CT scans dated 07/26/2017 and 04/15/2012. Abdominal CT dated 05/16/2017. TECHNIQUE: Following the IV administration of 116 of Optiray 320, CT scan of the chest, abdomen, and pelvis was performed from the thoracic inlet to the proximal femora. Images are reviewed in the axial, sagittal, and coronal planes. IV contrast was administered without complication. Automated dose control exposure was utilized. A dose lowering technique was utilized adhering to the principles of ALARA. The examination is degraded by streak artifact from metallic orthopedic hardware. CT DOSE: 4454.87 mGy.cm FINDINGS: CHEST: Thyroid: Atrophic. Thoracic aorta: The thoracic aorta is normal in caliber and demonstrates standard 3-vessel arch anatomy. No dissection is seen. Heart: The heart is normal in size and configuration, and without pericardial effusion. The pulmonary trunk is normal in caliber. Lungs and pleural spaces: There is no airspace consolidation, pleural effusion, or pneumothorax. The trachea and central airways are clear. Scattered tiny calcified granulomas are incidentally noted. Mediastinum: There is no mediastinal hematoma or lymphadenopathy. Claudine: Clear. Axillae: There is no axillary lymphadenopathy. Bony thorax: The skeletal structures are osteopenic. Bilateral shoulder arthroplasties are in place. A benign-appearing sclerotic focus in the body of T3 is unchanged dating back to 2011 and likely represents a bone island. No lytic or blastic lesions are identified. The bony thorax appears intact. There are numerous healed bilateral rib fractures. There is a mild chronic compression deformity of T12. ABDOMEN AND PELVIS: Liver: The contrast-enhanced liver is normal in size, contour, and attenuation. There is no intrahepatic or ductal dilatation. The hepatic veins and portal veins are patent. Gallbladder: Unremarkable. Spleen: Normal in size and attenuation. Pancreas: Atrophic and grossly unremarkable. Adrenal glands: Unremarkable. Kidneys: The contrast enhanced kidneys are atrophic and without hydronephrosis. The kidneys enhance symmetrically. Scattered subcentimeter cortical hypodensities likely represent cysts but are too small for definitive characterization. A punctate nonobstructing calculus is noted in the right kidney. Abdominal vasculature: The abdominal aorta is normal in course and caliber noting mild atherosclerotic calcification. Stomach and bowel: Postoperative change with a probable gastric band is seen below the gastroesophageal junction. The duodenum is normal in configuration. There is moderate colonic fecal retention. No bowel obstruction is seen. The appendix is not identified and reported surgically absent. Peritoneum: There is no intraperitoneal free air or abdominal ascites. A midline surgical scar is noted. A small seroma is again suggested superficial to the peritoneum. Foci of induration within the ventral pelvic pannus are nonspecific and may represent contusion versus changes from subcutaneous soft tissue injections. Lymphadenopathy: None. Pelvic viscera: The bladder is normal as visualized. The uterus is surgically absent. No adnexal lesion is seen. Skeletal structures: The skeletal structures are osteopenic. Postlaminectomy change and fusion hardware is noted in the lumbar spine. Postoperative change is seen in the paraspinous soft tissues. No lytic or blastic lesions are seen. The lumbosacral spine and bony pelvis appear intact. There is a mild chronic compression deformity of L1. IMPRESSION: 1. There is no acute posttraumatic intrathoracic abnormality. 2. The lungs are clear. No pneumothorax is seen. 3. There is no evidence of solid organ injury in the abdomen or pelvis. 4. Findings suggest gastric banding. No bowel obstruction is identified. 5. Foci of induration are present within the right ventral pelvic pannus. This could be related to contusion versus subcutaneous injection sites. Clinical correlation will be required. 6. Punctate nonobstructing right renal calculus. 7. Additional findings as above. Electronically signed by: Tomas Can M.D. 08/20/2017 8:21 PM Dictated Date/Time: 08/20/2017 8:[address] SCAN OF THE CERVICAL SPINE CLINICAL HISTORY: Trauma. COMPARISON STUDY: CT scan of the cervical spine dated 06/12/2006. TECHNIQUE: CT scan of the cervical spine is performed from the skull base to the upper thoracic spine. Images are reviewed in the axial, sagittal, and coronal planes. IV contrast was not administered for this examination. A dose lowering technique was utilized adhering to the principles of ALARA. The examination is degraded by large body habitus, and by streak artifact from the patient's shoulders. FINDINGS: Skeletal structures: The skeletal structures are osteopenic. There is no evidence of fracture or subluxation involving the cervical spine. Vertebral body height and alignment are maintained. There is straightening of the cervical lordosis with reversal centered at C5. Anterior osteophytes are seen throughout. The odontoid process and lateral masses are intact. The atlantoaxial articulation is preserved noting productive degenerative change. The spinous processes appear intact. A large hemangioma is suggested in the body of C5. There is moderate multilevel cervical spondylosis. Uncovertebral and facet arthropathy contribute to neural foraminal narrowing at several levels. Intervertebral discs: There is advanced disc space narrowing with endplate sclerosis seen at C6-C7. Moderate to severe disc space narrowing is seen at C5-C6. Moderate disc space narrowing seen at C4-C5. Central canal: Posterior disc osteophyte complexes at C5-C6 and C6-C7 likely contribute to acquired compromise of the central canal. Soft tissues: The prevertebral and paraspinous soft tissues are within normal limits. The thyroid gland is atrophic. Calvarium: The visualized calvarium at the skull base appears intact. Brain parenchyma: Partially visualized brain parenchyma the skull base is within normal limits. Sinuses and mastoids: Trace mucosal thickening is seen within the right maxillary antrum. The remaining visualized paranasal sinuses are clear. The mastoid air cells are well pneumatized. Lung apices: Clear as visualized. IMPRESSION: 1. There is no evidence of fracture or subluxation involving the cervical spine. 2. Osteopenia and spondylotic change as above. Electronically signed by: Tomas Can M.D. 08/20/2017 8:01 PM Dictated Date/Time: 08/20/2017 7:[address] SCAN OF THE CHEST, ABDOMEN, AND PELVIS WITH IV CONTRAST CLINICAL HISTORY: Trauma. COMPARISON STUDY: Chest CT scans dated 07/26/2017 and 04/15/2012. Abdominal CT dated 05/16/2017. TECHNIQUE: Following the IV administration of 116 of Optiray 320, CT scan of the chest, abdomen, and pelvis was performed from the thoracic inlet to the proximal femora. Images are reviewed in the axial, sagittal, and coronal planes. IV contrast was administered without complication. Automated dose control exposure was utilized. A dose lowering technique was utilized adhering to the principles of ALARA. The examination is degraded by streak artifact from metallic orthopedic hardware. CT DOSE: 4454.87 mGy.cm FINDINGS: CHEST: Thyroid: Atrophic. Thoracic aorta: The thoracic aorta is normal in caliber and demonstrates standard 3-vessel arch anatomy. No dissection is seen. Heart: The heart is normal in size and configuration, and without pericardial effusion. The pulmonary trunk is normal in caliber. Lungs and pleural spaces: There is no airspace consolidation, pleural effusion, or pneumothorax. The trachea and central airways are clear. Scattered tiny calcified granulomas are incidentally noted. Mediastinum: There is no mediastinal hematoma or lymphadenopathy. Claudine: Clear. Axillae: There is no axillary lymphadenopathy. Bony thorax: The skeletal structures are osteopenic. Bilateral shoulder arthroplasties are in place. A benign-appearing sclerotic focus in the body of T3 is unchanged dating back to 2011 and likely represents a bone island. No lytic or blastic lesions are identified. The bony thorax appears intact. There are numerous healed bilateral rib fractures. There is a mild chronic compression deformity of T12. ABDOMEN AND PELVIS: Liver: The contrast-enhanced liver is normal in size, contour, and attenuation. There is no intrahepatic or ductal dilatation. The hepatic veins and portal veins are patent. Gallbladder: Unremarkable. Spleen: Normal in size and attenuation. Pancreas: Atrophic and grossly unremarkable. Adrenal glands: Unremarkable. Kidneys: The contrast enhanced kidneys are atrophic and without hydronephrosis. The kidneys enhance symmetrically. Scattered subcentimeter cortical hypodensities likely represent cysts but are too small for definitive characterization. A punctate nonobstructing calculus is noted in the right kidney. Abdominal vasculature: The abdominal aorta is normal in course and caliber noting mild atherosclerotic calcification. Stomach and bowel: Postoperative change with a probable gastric band is seen below the gastroesophageal junction. The duodenum is normal in configuration. There is moderate colonic fecal retention. No bowel obstruction is seen. The appendix is not identified and reported surgically absent. Peritoneum: There is no intraperitoneal free air or abdominal ascites. A midline surgical scar is noted. A small seroma is again suggested superficial to the peritoneum. Foci of induration within the ventral pelvic pannus are nonspecific and may represent contusion versus changes from subcutaneous soft tissue injections. Lymphadenopathy: None. Pelvic viscera: The bladder is normal as visualized. The uterus is surgically absent. No adnexal lesion is seen. Skeletal structures: The skeletal structures are osteopenic. Postlaminectomy change and fusion hardware is noted in the lumbar spine. Postoperative change is seen in the paraspinous soft tissues. No lytic or blastic lesions are seen. The lumbosacral spine and bony pelvis appear intact. There is a mild chronic compression deformity of L1. IMPRESSION: 1. There is no acute posttraumatic intrathoracic abnormality. 2. The lungs are clear. No pneumothorax is seen. 3. There is no evidence of solid organ injury in the abdomen or pelvis. 4. Findings suggest gastric banding. No bowel obstruction is identified. 5. Foci of induration are present within the right ventral pelvic pannus. This could be related to contusion versus subcutaneous injection sites. Clinical correlation will be required. 6. Punctate nonobstructing right renal calculus. 7. Additional findings as above. Electronically signed by: Tomas Can M.D. 08/20/2017 8:21 PM Dictated Date/Time: 08/20/2017 8:07 PM Laboratory Results 08/20/17 18:00 Red Blood Count 4.12, Mean Corpuscular Volume 73.8, Mean Corpuscular Hemoglobin 22.3, Mean Corpuscular Hemoglobin Concent 30.3, Mean Platelet Volume 8.0 08/20/17 18:00 Test 08/20/17 18:00 White Blood Count 7.44 K/uL (4.8-10.8) Red Blood Count 4.12 M/uL (4.2-5.4) Hemoglobin 9.2 g/dL (12.0-16.0) Hematocrit 30.4 % (37-47) Mean Corpuscular Volume 73.8 fL (80-100) Mean Corpuscular Hemoglobin 22.3 pg (25-34) Mean Corpuscular Hemoglobin Concent 30.3 g/dl (32-36) Platelet Count 329 K/uL (130-400) Mean Platelet Volume 8.0 fL (7.4-10.4) RDW Standard Deviation 42.0 fL (36.4-46.3) RDW Coefficient of Variation 15.6 % (11.5-14.5) Neutrophils % (Manual) 73.7 % Lymphocytes % (Manual) 19.3 % Monocytes % (Manual) 2.6 % Eosinophils % (Manual) 4.4 % Neutrophils # (Manual) 5.48 K/uL (1.4-6.5) Total Absolute Neutrophils 5.48 K/uL (1.4-6.5) Lymphocytes # (Manual) 1.44 K/uL (1.2-3.4) Total Absolute Lymphocytes 1.44 K/uL (1.2-3.4) Monocytes # (Manual) 0.19 K/uL (0.11-0.59) Eosinophils # (Manual) 0.33 K/uL (0-0.5) Anisocytosis PRESENT Ovalocytes 1+ Prothrombin Time 18.9 SECONDS (9.0-12.0) Prothromb Time International Ratio 1.8 (0.9-1.1) Anion Gap 7.0 mmol/L (3-11) Est Creatinine Clear Calc Drug Dose 53.8 ml/min Estimated GFR () 57.6 Estimated GFR (Non- 49.7 BUN/Creatinine Ratio 16.4 (10-20) Calcium Level 9.1 mg/dl (8.5-10.1) Total Bilirubin 0.4 mg/dl (0.2-1) Aspartate Amino Transf (AST/SGOT) 16 U/L (15-37) Alanine Aminotransferase (ALT/SGPT) 26 U/L (12-78) Alkaline Phosphatase 153 U/L (45-117) Troponin I < 0.015 ng/ml (0-0.045) Total Protein 7.1 gm/dl (6.4-8.2) Albumin 3.2 gm/dl (3.4-5.0) Globulin 3.9 gm/dl (2.5-4.0) Albumin/Globulin Ratio 0.8 (0.9-2) Laboratory results per my review. Medications Administered Medications (Trade) Dose Ordered Sig/Melquiades Route Start Time Stop Time Status Last Admin Dose Admin Ondansetron HCl (Zofran Inj) 4 mg NOW STAT IV 08/20/17 18:44 4 18:46 DC 08/20/17 18:44 4 MG Acetaminophen (Tylenol Tab) 650 mg NOW STAT PO 08/20/17 18:44 08/20/17 18:46 DC 08/20/17 18:44 650 MG Oxycodone/ Acetaminophen (Percocet 5/ 325MG Home Pack) 1 homepack UD ONCE PO 08/20/17 21:00 08/20/17 21:01 DC 08/20/17 21:00 1 HOMEPACK Procedure Location: Forehead Total length: 3 cm Complexity: Superficial Verbal consent was obtained after the risks and benefits were explained, including but not limited to bleeding, scarring, infection, pain, and bone/joint /nerve damage. At this time, the risks of the procedure are less than the risks of NOT performing the procedure. A time out was taken and the correct patient and site identified. The skin was prepped with betadine. The target area was anesthetized with 6 ml of 1% lidocaine with epinephrine. Copious irrigation was performed using normal saline. The skin was re-prepped with betadine and a sterile field set. The wound was explored for foreign bodies and none found. Examination revealed no injury to deep structures such as tendons, bone, or significant blood vessels. Debridement was not performed. The wound edges were approximated using 6-0 simple interrupted nylon sutures. Hemostasis and excellent approximation was achieved. Antibacterial ointment and a sterile dressing applied. Detailed wound care instructions and signs and symptoms of infection reviewed with the patient. No complications and the patient tolerated the procedure well. ECG Per My Interpretation Indication: weakness Rate (beats per minute): 98 Rhythm: normal sinus Findings: 1st degree AV block, no acute ischemic change, other (normal axis, normal intervals) ED Course 1804: The patient was evaluated in room B5. A complete history and physical exam was performed. 1843: Tylenol Tab 650 mg PO, Zofran Inj 4 mg IV. Medical Decision Differential diagnoses include major intracranial, cervical, spinal, thoracic, abdominal, pelvic and neurologic injury. Fracture, contusion, sprain, strain, laceration, abrasions, vasovagal event, infection, hypoglycemia, electrolyte abnormalities, cardiac sources, intracerebral event, toxicologic, neurologic, as well as others were entertained. By the evaluation outlined above emergent etiologies such as infection, hypoglycemia, electrolyte abnormalities, cardiac sources, intracerebral event, toxicologic, neurologic,as well as others were deemed relatively unlikely. All questions were answered and the patient was pleased with the treatment. Return instructions were outlined and the patient was discharged in stable condition. The patient was referred back to their primary care physician for follow-up in 2 to 3 days for a recheck of the current condition. Pt well appearing here throughout. Imaging negative for acute trauma. Labs reassuring. Anemia consistent with prior levels. No dysrhythmia noted on tele. Pt with hx of ambulatory dysfunction and prior falls. Wasn't using her walker when the first fall occurred. Given subsequent amnesia to events btw falls according to daughter, concussion likely. Laceration repaired without incident. Tetanus UTD. Patient denied any prodromal or preceding symptoms. I do feel this fall was likely mechanical given her history and lack of use of an ambulatory aid at the time of the first fall. I do not suspect syncope, dysrhythmia, CVA, ACS, dissection, cerebellar infarct/bleed/mass, occult infectious etiology. Discussed with her all results, close f/u with PCP, use of a cane/walker at all times, sx to watch/return for, she verbalized understanding and she and family were agreeable with plan. Discussed her INR with her. Pt not given additional anticoagulation here due to trauma today and risk of falling. Encouraged to continue her routine meds including anticoagulation and have the level rechecked at the end of the week. Medication Reconcilliation Current Medication List: was personally reviewed by me Blood Pressure Screening Patient's blood pressure: Elevated blood pressure Blood pressure disposition: Elevated BP felt to be situational Impression Primary Impression: Fall Additional Impressions: CHI (closed head injury) Facial laceration Abrasion Ambulatory dysfunction Anemia Subtherapeutic anticoagulation Concussion Scribe Attestation The scribe's documentation has been prepared under my direction and personally reviewed by me in its entirety. I confirm that the note above accurately reflects all work, treatment, procedures, and medical decision making performed by me. Departure Information Dispostion Home / Self-Care Referrals Chavo Paz M.D. (PCP) Additional Instructions Please rest. Please use your walker at all times, if it cannot be used in certain spots of your house please make sure you are using your cane. Please take your regular medications as prescribed including her blood thinner. Your INR tonight was 1.8. This needs to be rechecked at the end of the week to make sure it is back between 2 and 3. You may use your regular tramadol. Stronger pain medications may make you dizzy or drowsy which could lead to another fall. Narcotic pain medications can also make you constipated or cause urinary retention. Please have your family doctor recheck you later this week. The stitches in your forehead need to be removed in 5-7 days. If you have any worsening headaches, dizziness, vision changes, feel your unable to walk or feel more off balance, develop nausea or vomiting, chest pain, trouble breathing , abdominal pain, weakness, or you have any other new concerns, please return the emergency room. Please keep the cut on your forehead covered with a dressing until it is healed and the stitches are removed. If you notice redness or drainage, or develop a fever, please return to the ER immediately as you may have an infection. Problem Qualifiers Primary Impression: Fall Encounter type: initial encounter Qualified Codes: W19.XXXA - Unspecified fall, initial encounter Additional Impressions: CHI (closed head injury) Encounter type: initial encounter Qualified Codes: S09.90XA - Unspecified injury of head, initial encounter Facial laceration Encounter type: initial encounter Qualified Codes: S01.81XA - Laceration without foreign body of other part of head, initial encounter Anemia Anemia type: unspecified type Qualified Codes: D64.9 - Anemia, unspecified Concussion Encounter type: initial encounter Loss of consciousness presence/duration: without LOC Qualified Codes: S06.0X0A - Concussion without loss of consciousness, initial encounter
[2017-08-20 18:36] LABS: INR 1.8 (0.9-1.1)
[2017-08-20 18:44] LABS: HEMATOCRIT 30.4 % (37-47); HEMOGLOBIN 9.2 g/dL (12.0-16.0); MEAN CELL VOLUME 73.8 fL (80-100); MEAN CORPUSCULAR HEMOGLOBIN 22.3 pg (25-34); MEAN CORPUSCULAR HGB CONC 30.3 g/dl (32-36); PLATELET COUNT 329 K/uL (130-400); RED CELL DISTRIBUTION WIDTH CV 15.6 % (11.5-14.5); WHITE BLOOD COUNT 7.44 K/uL (4.8-10.8)
[2017-08-20] MEDS ORDERED: ACETAMINOPHEN 325 MG TAB PO STA (18:44)
[2017-08-20] MEDS ORDERED: ONDANSETRON INJ 2 MG/ML 2 ML VIAL IV STA (18:44)
[2017-08-20 18:52] LABS: ALBUMIN 3.2 gm/dl (3.4-5.0); ALT/SGPT 26 U/L (12-78); AST/SGOT 16 U/L (15-37); BLOOD UREA NITROGEN 19 mg/dl (7-18); CALCIUM 9.1 mg/dl (8.5-10.1); CARBON DIOXIDE 26 mmol/L (21-32); CREATININE 1.14 mg/dl (0.60-1.20); GLUCOSE 105 mg/dl (70-99); POTASSIUM 4.5 mmol/L (3.5-5.1); SODIUM 140 mmol/L (136-145)
[2017-08-20 18:57] LABS: ALKALINE PHOSPHATASE 153 U/L (45-117); TOTAL PROTEIN 7.1 gm/dl (6.4-8.2)
--- NOTE | 2017-08-20 19:51 | DIAGNOSTIC IMAGING REPORT ---
CT SCAN OF THE BRAIN WITHOUT IV CONTRAST CLINICAL HISTORY: Trauma. COMPARISON STUDY: No priors. TECHNIQUE: Unenhanced axial CT scan of the brain is performed from the vertex to the skull base. A dose lowering technique was utilized adhering to the principles of ALARA. FINDINGS: Brain parenchyma: There are age-related involutional changes noting mild subcortical and periventricular microangiopathic change. There is no hemorrhage, mass effect, or evidence of acute territorial ischemia by CT criteria. Piña-white matter is preserved. No extra-axial fluid collection is seen. Ventricles, sulci, cisterns: Prominent secondary to involutional change. Intracranial vasculature: There is atherosclerotic calcification of the cavernous carotid and vertebral arteries. Calvarium: The skeletal structures are osteopenic. No depressed calvarial fracture is seen. Soft tissues: There is a left frontal scalp contusion. Sinuses and mastoids: The visualized paranasal sinuses are clear. The mastoid air cells are well pneumatized. Orbits: The bony orbits are grossly intact. There are bilateral ocular lens implants. IMPRESSION: 1. There is no hemorrhage, mass effect, or evidence of acute territorial ischemia by CT criteria. 2. Left frontal scalp contusion. No depressed calvarial fracture is seen. Electronically signed by: Tomas Can M.D. 08/20/2017 7:50 PM Dictated Date/Time: 08/20/2017 7:48 PM
[2017-08-20] MEDS ORDERED: OPTIRAY 320 IV PRN (20:00)
--- NOTE | 2017-08-20 20:02 | DIAGNOSTIC IMAGING REPORT ---
CT SCAN OF THE CERVICAL SPINE CLINICAL HISTORY: Trauma. COMPARISON STUDY: CT scan of the cervical spine dated 06/12/2006. TECHNIQUE: CT scan of the cervical spine is performed from the skull base to the upper thoracic spine. Images are reviewed in the axial, sagittal, and coronal planes. IV contrast was not administered for this examination. A dose lowering technique was utilized adhering to the principles of ALARA. The examination is degraded by large body habitus, and by streak artifact from the patient's shoulders. FINDINGS: Skeletal structures: The skeletal structures are osteopenic. There is no evidence of fracture or subluxation involving the cervical spine. Vertebral body height and alignment are maintained. There is straightening of the cervical lordosis with reversal centered at C5. Anterior osteophytes are seen throughout. The odontoid process and lateral masses are intact. The atlantoaxial articulation is preserved noting productive degenerative change. The spinous processes appear intact. A large hemangioma is suggested in the body of C5. There is moderate multilevel cervical spondylosis. Uncovertebral and facet arthropathy contribute to neural foraminal narrowing at several levels. Intervertebral discs: There is advanced disc space narrowing with endplate sclerosis seen at C6-C7. Moderate to severe disc space narrowing is seen at C5-C6. Moderate disc space narrowing seen at C4-C5. Central canal: Posterior disc osteophyte complexes at C5-C6 and C6-C7 likely contribute to acquired compromise of the central canal. Soft tissues: The prevertebral and paraspinous soft tissues are within normal limits. The thyroid gland is atrophic. Calvarium: The visualized calvarium at the skull base appears intact. Brain parenchyma: Partially visualized brain parenchyma the skull base is within normal limits. Sinuses and mastoids: Trace mucosal thickening is seen within the right maxillary antrum. The remaining visualized paranasal sinuses are clear. The mastoid air cells are well pneumatized. Lung apices: Clear as visualized. IMPRESSION: 1. There is no evidence of fracture or subluxation involving the cervical spine. 2. Osteopenia and spondylotic change as above. Electronically signed by: Tomas Can M.D. 08/20/2017 8:01 PM Dictated Date/Time: 08/20/2017 7:57 PM
--- NOTE | 2017-08-20 20:23 | DIAGNOSTIC IMAGING REPORT ---
CT SCAN OF THE CHEST, ABDOMEN, AND PELVIS WITH IV CONTRAST CLINICAL HISTORY: Trauma. COMPARISON STUDY: Chest CT scans dated 07/26/2017 and 04/15/2012. Abdominal CT dated 05/16/2017. TECHNIQUE: Following the IV administration of 116 of Optiray 320, CT scan of the chest, abdomen, and pelvis was performed from the thoracic inlet to the proximal femora. Images are reviewed in the axial, sagittal, and coronal planes. IV contrast was administered without complication. Automated dose control exposure was utilized. A dose lowering technique was utilized adhering to the principles of ALARA. The examination is degraded by streak artifact from metallic orthopedic hardware. CT DOSE: 4454.87 mGy.cm FINDINGS: CHEST: Thyroid: Atrophic. Thoracic aorta: The thoracic aorta is normal in caliber and demonstrates standard 3-vessel arch anatomy. No dissection is seen. Heart: The heart is normal in size and configuration, and without pericardial effusion. The pulmonary trunk is normal in caliber. Lungs and pleural spaces: There is no airspace consolidation, pleural effusion, or pneumothorax. The trachea and central airways are clear. Scattered tiny calcified granulomas are incidentally noted. Mediastinum: There is no mediastinal hematoma or lymphadenopathy. Claudine: Clear. Axillae: There is no axillary lymphadenopathy. Bony thorax: The skeletal structures are osteopenic. Bilateral shoulder arthroplasties are in place. A benign-appearing sclerotic focus in the body of T3 is unchanged dating back to 2011 and likely represents a bone island. No lytic or blastic lesions are identified. The bony thorax appears intact. There are numerous healed bilateral rib fractures. There is a mild chronic compression deformity of T12. ABDOMEN AND PELVIS: Liver: The contrast-enhanced liver is normal in size, contour, and attenuation. There is no intrahepatic or ductal dilatation. The hepatic veins and portal veins are patent. Gallbladder: Unremarkable. Spleen: Normal in size and attenuation. Pancreas: Atrophic and grossly unremarkable. Adrenal glands: Unremarkable. Kidneys: The contrast enhanced kidneys are atrophic and without hydronephrosis. The kidneys enhance symmetrically. Scattered subcentimeter cortical hypodensities likely represent cysts but are too small for definitive characterization. A punctate nonobstructing calculus is noted in the right kidney. Abdominal vasculature: The abdominal aorta is normal in course and caliber noting mild atherosclerotic calcification. Stomach and bowel: Postoperative change with a probable gastric band is seen below the gastroesophageal junction. The duodenum is normal in configuration. There is moderate colonic fecal retention. No bowel obstruction is seen. The appendix is not identified and reported surgically absent. Peritoneum: There is no intraperitoneal free air or abdominal ascites. A midline surgical scar is noted. A small seroma is again suggested superficial to the peritoneum. Foci of induration within the ventral pelvic pannus are nonspecific and may represent contusion versus changes from subcutaneous soft tissue injections. Lymphadenopathy: None. Pelvic viscera: The bladder is normal as visualized. The uterus is surgically absent. No adnexal lesion is seen. Skeletal structures: The skeletal structures are osteopenic. Postlaminectomy change and fusion hardware is noted in the lumbar spine. Postoperative change is seen in the paraspinous soft tissues. No lytic or blastic lesions are seen. The lumbosacral spine and bony pelvis appear intact. There is a mild chronic compression deformity of L1. IMPRESSION: 1. There is no acute posttraumatic intrathoracic abnormality. 2. The lungs are clear. No pneumothorax is seen. 3. There is no evidence of solid organ injury in the abdomen or pelvis. 4. Findings suggest gastric banding. No bowel obstruction is identified. 5. Foci of induration are present within the right ventral pelvic pannus. This could be related to contusion versus subcutaneous injection sites. Clinical correlation will be required. 6. Punctate nonobstructing right renal calculus. 7. Additional findings as above. Electronically signed by: Tomas Can M.D. 08/20/2017 8:21 PM Dictated Date/Time: 08/20/2017 8:07 PM
[2017-08-20] MEDS ORDERED: LIDOCAINE/EPINEPHRINE 1% 20 ML VIAL ONE (20:28)
[2017-08-20] MEDS ORDERED: PERCOCET HOME PACK PO ONE (21:00)
[2017-08-20 21:42] VITALS: BP 140/68; PULSE 83; O2SAT 99
== END 2017-08-20 21:43 | disposition home or self-care (01) ==
LOC: EDBD 17:38 → C.EDB 17:38
DX: S01.81XA Laceration without foreign body of other part of head, initial encounter (principal); T14.8XXA Other injury of unspecified body region, initial encounter; S06.0X0A Concussion without loss of consciousness, initial encounter; W19.XXXA Unspecified fall, initial encounter; Y92.019 Unspecified place in single-family (private) house as the place of occurrence of the external cause; D64.9 Anemia, unspecified; R26.2 Difficulty in walking, not elsewhere classified; R79.1 Abnormal coagulation profile; F41.9 Anxiety disorder, unspecified; F32.9 Major depressive disorder, single episode, unspecified; E11.9 Type 2 diabetes mellitus without complications; E78.5 Hyperlipidemia, unspecified; I10 Essential (primary) hypertension; M19.90 Unspecified osteoarthritis, unspecified site; Z79.01 Long term (current) use of anticoagulants; Z79.82 Long term (current) use of aspirin; Z79.4 Long term (current) use of insulin; Z79.899 Other long term (current) drug therapy; Z88.1 Allergy status to other antibiotic agents; Z88.0 Allergy status to penicillin

== ENCOUNTER 2017-09-11 18:48 | Emergency (ER) | payer OTHER ==
[~2017-09-11] VITALS: Ht 157.5 cm; Wt 104.8 kg
[2017-09-11 19:03] VITALS: TEMP 36.7; Ht 157.5 cm; Wt 104.8 kg
--- NOTE | 2017-09-11 20:15 | DIAGNOSTIC IMAGING REPORT ---
L KNEE 1 OR 2 VIEWS ROUTINE HISTORY: 67 years-old Female fall acute left knee pain status post fall COMPARISON: Left knee radiographs 07/26/2017 TECHNIQUE: 2 views of the left knee FINDINGS: Left knee arthroplasty without evidence of hardware complication. There is no acute fracture or dislocation. Suggestion of a small joint effusion. Bones appear mildly demineralized. IMPRESSION: 1. Small joint effusion without acute fracture or dislocation. 2. Left knee arthroplasty without evidence of hardware complication. The above report was generated using voice recognition software. It may contain grammatical, syntax or spelling errors. Electronically signed by: Ant Frank M.D. 09/11/2017 8:13 PM Dictated Date/Time: 09/11/2017 8:12 PM
--- NOTE | 2017-09-11 20:18 | DIAGNOSTIC IMAGING REPORT ---
L-SPINE MIN 4 VIEWS ROUTINE HISTORY: 67 years-old Female fall acute low back pain status post fall COMPARISON: CT abdomen and pelvis 08/20/2017 TECHNIQUE: 5 views of the lumbar spine FINDINGS: There are 5 nonrib-bearing lumbar type vertebral segments present. Prior posterior decompression with interbody jericho and screw fusion at L4-S1. 6 mm anterolisthesis L4 on L5 appears unchanged from comparison. 25% anterior endplate compression deformity of the L1 vertebral body is unchanged from comparison. Intervertebral disc space narrowing with endplate spurring is seen most prominently at T12-L1 and L1-L2. Fracture or subluxation is identified. Gas-filled loops of bowel are noted throughout the abdomen. IMPRESSION: 1. No acute fracture or subluxation of the lumbar spine identified. 2. Chronic compression deformity of the L1 vertebral body. 3. Prior posterior decompression with interbody jericho and screw fusion at L4-S1 with unchanged 6 mm anterolisthesis L4 on L5. The above report was generated using voice recognition software. It may contain grammatical, syntax or spelling errors. Electronically signed by: Ant Frank M.D. 09/11/2017 8:17 PM Dictated Date/Time: 09/11/2017 8:14 PM
--- NOTE | 2017-09-11 20:27 | EMERGENCY ROOM VISIT NOTE ---
History Report prepared by Amrita: Vinicius King Under the Supervision of: Dr. Teto Finch D.O. First contact with patient: 18:53 Stated Complaint: FALL History of Present Illness The patient is a 67 year old female who presents to the Emergency Room brought in by EMS with complaints of persistent back pain secondary to a mechanical fall that occurred at 1400 today. Per EMS, the patient called her daughter and her daughter informed emergency services. Per nursing staff, the patient has been falling more often and will not inform her daughter. The patient states that she fell three times yesterday and once today. She states that each time her foot caught in the door frame and she tripped. She states that today she fell face forward and landed on her knees and back. She notes left knee pain and back pain. She currently rates her pain an 8/10 in severity. She denies any right knee pain. She notes her back pain is radiating to her legs and toes. She reports two bumps to the back of her head from the falls that happened yesterday. She has stitches to her forehead, which she states was from a fall two weeks ago. She denies any hand pain. She states EMS tried to give her an IV in her left hand, though were unsuccessful. She reports bleeding to her left hand due to the IV attempt. She denies any abdominal pain. She normally uses a walker to ambulate. She states that she can hardly walk well with her walker since it is too big relative to her living space. Per nursing staff, the patient attends therapy once a week. Source of History: patient Onset: 1400 today Position: back Symptom Intensity: 8/10 Quality: other (radiating to legs and toes) Timing: other (persistent) Associated Symptoms: No abdominal pain Note: Notes bumps to head, bleeding to left hand, and left knee pain. Denies hand pain and right knee pain. Review of Systems See HPI for pertinent positives & negatives. A total of 10 systems reviewed and were otherwise negative. 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 Surgical Problems: (1) History of appendectomy (2) History of esophageal surgery (3) Hx of shoulder surgery (4) S/p bilateral carpal tunnel release (5) S/P cataract surgery (6) S/P hysterectomy (7) S/P thyroidectomy Family History Cancer Diabetes mellitus Heart disease Hypertension Kidney disease Kidney stones Lung disease Social History Smoking Status: Never Smoker Alcohol Use: none Drug Use: none Marital Status: Housing Status: lives alone Occupation Status: employed Current/Historical Medications Scheduled Amitriptyline HCl (Amitriptyline HCl), 100 MG PO HS Aspirin (Aspirin Ec), 81 MG PO DAILY Buspirone Hcl (Buspirone Hcl), 7.5 MG PO BID Carvedilol (Carvedilol), 1 TAB PO BID Cholecalciferol (Vitamin D3), 2,000 UNITS PO DAILY Duloxetine HCl (Duloxetine HCl), 60 MG PO QAM Fluticasone Propionate (Nasal) (Flonase Allergy Relief), 2 SPRAYS MARLENI DAILY Gabapentin (Gabapentin), 1 CAP PO UD Insulin Glargine (Lantus Solostar), 7 UNITS SC QAM Insulin Glargine (Lantus Solostar), 30 UNITS SC QPM Levothyroxine Sodium (Levothyroxine Sodium), 200 MCG PO QAM Lisinopril (Lisinopril), 1 TAB PO DAILY Metformin Hcl (Glucophage), 1,000 MG PO BIDM Mirtazapine (Remeron), 15 MG PO HS Paroxetine (Paroxetine HCl), 40 MG PO QAM Paroxetine (Paxil), 20 MG PO QAM Saline ([place]), 2 SPRAYS MARLENI BID Warfarin Sodium (Warfarin Sodium), 1 DOSE PO UD Scheduled PRN Esomeprazole Magnesium (Nexium), 20 MG PO DAILY PRN for GI Upset Allergies Coded Allergies: Amoxicillin (Verified Adverse Reaction, Unknown, nausea, 07/26/17) Clavulanic Acid (Verified Adverse Reaction, Unknown, nausea, 07/26/17) Penicillins (Verified Adverse Reaction, Unknown, NAUSEA/VOMITING, 07/26/17) Physical Exam Vital Signs Date Time Temp Pulse Resp B/P (MAP) Pulse Ox O2 Delivery O2 Flow Rate FiO2 09/11/17 22:01 82 18 143/63 98 Room Air 09/11/17 21:00 87 18 130/73 97 Room Air 09/11/17 19:03 36.7 93 20 167/89 95 Room Air Physical Exam CONSTITUTIONAL/VITAL SIGNS: Reviewed / noted above. GENERAL: Non-toxic in appearance. INTEGUMENTARY: Warm, dry, and [place]. HEAD: Normocephalic. EYES: without scleral icterus or trauma. ENT/OROPHARYNX: clear and moist. LYMPHADENOPATHY/NECK: Is supple without lymphadenopathy or meningismus. RESPIRATORY: Lungs clear and equal. CARDIOVASCULAR: Regular rate and rhythm. GI/ABDOMEN: Soft and nontender. No organomegaly or pulsatile mass. No rebound or guarding. Normal bowel sounds. EXTREMITIES: Warm and well perfused. Mild swelling and bruising to left knee. BACK: No CVA tenderness. Mild tenderness to palpation to lumbar region, no obvious trauma. NEUROLOGICAL: Intact without focal deficits. PSYCHIATRIC: normal affect. MUSCULOSKELETAL: Normally developed with good muscle tone. Medical Decision & Procedures ER Provider Diagnostic Interpretation: Radiology results as stated below per my review and radiologist interpretation: L KNEE 1 OR 2 VIEWS ROUTINE HISTORY: 67 years-old Female fall acute left knee pain status post fall COMPARISON: Left knee radiographs 07/26/2017 TECHNIQUE: 2 views of the left knee FINDINGS: Left knee arthroplasty without evidence of hardware complication. There is no acute fracture or dislocation. Suggestion of a small joint effusion. Bones appear mildly demineralized. IMPRESSION: 1. Small joint effusion without acute fracture or dislocation. 2. Left knee arthroplasty without evidence of hardware complication. The above report was generated using voice recognition software. It may contain grammatical, syntax or spelling errors. Electronically signed by: Ant Frank M.D. 09/11/2017 8:13 PM Dictated Date/Time: 09/11/2017 8:12 PM L-SPINE MIN 4 VIEWS ROUTINE HISTORY: 67 years-old Female fall acute low back pain status post fall COMPARISON: CT abdomen and pelvis 08/20/2017 TECHNIQUE: 5 views of the lumbar spine FINDINGS: There are 5 nonrib-bearing lumbar type vertebral segments present. Prior posterior decompression with interbody jericho and screw fusion at L4-S1. 6 mm anterolisthesis L4 on L5 appears unchanged from comparison. 25% anterior endplate compression deformity of the L1 vertebral body is unchanged from comparison. Intervertebral disc space narrowing with endplate spurring is seen most prominently at T12-L1 and L1-L2. Fracture or subluxation is identified. Gas-filled loops of bowel are noted throughout the abdomen. IMPRESSION: 1. No acute fracture or subluxation of the lumbar spine identified. 2. Chronic compression deformity of the L1 vertebral body. 3. Prior posterior decompression with interbody jericho and screw fusion at L4-S1 with unchanged 6 mm anterolisthesis L4 on L5. The above report was generated using voice recognition software. It may contain grammatical, syntax or spelling errors. Electronically signed by: Ant Frank M.D. 09/11/2017 8:17 PM Dictated Date/Time: 09/11/2017 8:14 PM HEAD WITHOUT CONTRAST (CT) CLINICAL HISTORY: 67 years-old Female with fall. Acute head injury status post fall TECHNIQUE: Multiple axial CT images of the head were obtained without contrast. A dose lowering technique was utilized adhering to the principles of ALARA. CT DOSE: 537.48 mGy.cm COMPARISON: CT head 08/20/2017 FINDINGS: No acute intracranial hemorrhage, midline shift, intracranial mass, hydrocephalus, territorial ischemia or abnormal extra-axial collection. Mild atrophy. Calcifications of the falx cerebri are noted. Cerebral vascular calcifications are seen at the level of the skull base. The calvarium is intact. The paranasal sinuses, mastoid air cells, and middle ear cavities are clear. Hypoplasia of the frontal sinuses. Minimal residual induration of the left frontal scalp, decreased in size from comparison. Thinning of the optic lenses bilaterally suggest prior cataract repair. IMPRESSION: No acute intracranial abnormality or calvarial fracture. The above report was generated using voice recognition software. It may contain grammatical, syntax or spelling errors. Electronically signed by: Ant Frank M.D. 09/11/2017 9:28 PM Dictated Date/Time: 09/11/2017 9:26 PM Laboratory Results 09/11/17 20:29 09/11/17 20:29 Test 09/11/17 20:29 Red Blood Count 3.82 M/uL (4.2-5.4) Mean Corpuscular Volume 73.3 fL (80-100) Mean Corpuscular Hemoglobin 22.3 pg (25-34) Mean Corpuscular Hemoglobin Concent 30.4 g/dl (32-36) RDW Standard Deviation 43.9 fL (36.4-46.3) RDW Coefficient of Variation 16.3 % (11.5-14.5) Mean Platelet Volume 7.8 fL (7.4-10.4) Anion Gap 5.0 mmol/L (3-11) Est Creatinine Clear Calc Drug Dose 53.9 ml/min Estimated GFR () 57.0 Estimated GFR (Non- 49.2 BUN/Creatinine Ratio 16.7 (10-20) Calcium Level 8.8 mg/dl (8.5-10.1) Laboratory results as stated above per my review. ED Course 1854: Previous medical records were reviewed. The patient was evaluated in room B6. A complete history and physical examination was performed. 1944: I reassessed the patient at this time. I spoke with the patients family. She agreed to have a CT scan of her head. I discussed the results and treatment plan with the patient. I answered all pertaining questions that she had. She expressed understanding and verbalized agreement. The patient will be evaluated at [facility]. Medical Decision Differentials include: Close head injury, intracranial bleed, facial trauma, cervical spine trauma, chest and thoracic trauma, abdominal and intra-abdominal trauma, spine neurologic trauma, and extremity trauma. This is a 67-year-old female who presents to the ED with a chief complaint of a fall. The patient has had frequent falls recently. The patient states that she was walking with her walker and going to the bathroom. She believes that she caught her foot on the door causing her to fall. She was here couple of weeks ago and required stitches to the sutures to the forehead. The patient also reports that she fell several times yesterday. She has been through inpatient rehab and is currently doing rehab once a week. The patient complains of some back pain that radiates down her legs. She also reports some left knee discomfort on exam. Her exam reveals no head trauma. The sutures are still in place from August 20. We are going to remove those today. The patient's back reveals some mild tenderness to palpation of the lumbar region. She has some mild swelling and ecchymosis the left knee. She has full range of motion and was able to ambulate to the bathroom with minimal assistance and with her walker here. Abdomen is soft and nontender. Chest is without tenderness. Lungs are clear. Vital signs are stable. X-ray of the left knee reveals a small joint effusion but no fracture. Lumbar x-rays did not reveal acute fracture. Urine dip was negative. The patient was accepted at [facility]. She will go to rehab there. Head Trauma GCS Score: 15 Medication Reconcilliation Current Medication List: was personally reviewed by me Blood Pressure Screening Patient's blood pressure: Elevated blood pressure Blood pressure disposition: Referred to PCP Impression Primary Impression: Fall Additional Impression: Weakness Scribe Attestation The scribe's documentation has been prepared under my direction and personally reviewed by me in its entirety. I confirm that the note above accurately reflects all work, treatment, procedures, and medical decision making performed by me. Departure Information Dispostion Rehab Inpatient Facility ([facility]) Referrals Chavo Paz M.D. (PCP) Problem Qualifiers
[2017-09-11 21:07] LABS: CALCIUM 8.8 mg/dl (8.5-10.1); CREATININE 1.15 mg/dl (0.60-1.20); POTASSIUM 4.8 mmol/L (3.5-5.1)
[2017-09-11 21:10] LABS: HEMOGLOBIN 8.5 g/dL (12.0-16.0); MEAN CELL VOLUME 73.3 fL (80-100); MEAN CORPUSCULAR HEMOGLOBIN 22.3 pg (25-34); MEAN CORPUSCULAR HGB CONC 30.4 g/dl (32-36); MEAN PLATELET VOLUME 7.8 fL (7.4-10.4); PLATELET COUNT 323 K/uL (130-400); RED CELL DISTRIBUTION WIDTH CV 16.3 % (11.5-14.5); RED CELL DISTRIBUTION WIDTH SD 43.9 fL (36.4-46.3)
--- NOTE | 2017-09-11 21:30 | DIAGNOSTIC IMAGING REPORT ---
HEAD WITHOUT CONTRAST (CT) CLINICAL HISTORY: 67 years-old Female with fall. Acute head injury status post fall TECHNIQUE: Multiple axial CT images of the head were obtained without contrast. A dose lowering technique was utilized adhering to the principles of ALARA. CT DOSE: 537.48 mGy.cm COMPARISON: CT head 08/20/2017 FINDINGS: No acute intracranial hemorrhage, midline shift, intracranial mass, hydrocephalus, territorial ischemia or abnormal extra-axial collection. Mild atrophy. Calcifications of the falx cerebri are noted. Cerebral vascular calcifications are seen at the level of the skull base. The calvarium is intact. The paranasal sinuses, mastoid air cells, and middle ear cavities are clear. Hypoplasia of the frontal sinuses. Minimal residual induration of the left frontal scalp, decreased in size from comparison. Thinning of the optic lenses bilaterally suggest prior cataract repair. IMPRESSION: No acute intracranial abnormality or calvarial fracture. The above report was generated using voice recognition software. It may contain grammatical, syntax or spelling errors. Electronically signed by: Ant Frank M.D. 09/11/2017 9:28 PM Dictated Date/Time: 09/11/2017 9:26 PM
[2017-09-11] MEDS ORDERED: ACETAMINOPHEN 500 MG TAB PO STA (22:40)
[2017-09-11 22:50] VITALS: BP 138/72; PULSE 84; O2SAT 98
== END 2017-09-11 22:50 | disposition short-term general hospital (02) ==
LOC: EDBD 18:48 → C.EDB 18:51
DX: M54.9 Dorsalgia, unspecified (principal); R53.1 Weakness; W18.09XA Striking against other object with subsequent fall, initial encounter; Y93.01 Activity, walking, marching and hiking; Y99.8 Other external cause status; E11.9 Type 2 diabetes mellitus without complications; I10 Essential (primary) hypertension; F32.9 Major depressive disorder, single episode, unspecified; F41.9 Anxiety disorder, unspecified; E89.0 Postprocedural hypothyroidism; M17.11 Unilateral primary osteoarthritis, right knee; Z87.01 Personal history of pneumonia (recurrent); Z91.81 History of falling; Z90.89 Acquired absence of other organs; Z98.890 Other specified postprocedural states; Z98.49 Cataract extraction status, unspecified eye; Z90.710 Acquired absence of both cervix and uterus; Z88.0 Allergy status to penicillin; Z88.1 Allergy status to other antibiotic agents; Z88.8 Allergy status to other drugs, medicaments and biological substances; Z83.3 Family history of diabetes mellitus; Z82.49 Family history of ischemic heart disease and other diseases of the circulatory system; Z84.1 Family history of disorders of kidney and ureter; Z79.01 Long term (current) use of anticoagulants; Z79.4 Long term (current) use of insulin; Z79.82 Long term (current) use of aspirin; Z79.84 Long term (current) use of oral hypoglycemic drugs; Z79.899 Other long term (current) drug therapy

== ENCOUNTER 2018-12-04 03:58 | Inpatient (IN) ==
[2018-12-04] MEDS ORDERED: fentaNYL citrate 100 MCG/2 ML VIAL ONE ×3 (04:25→09:34)
[2018-12-04 05:04] LABS: Hematocrit (blood only) 34.8 % (37-47); Hemoglobin 10.9 g/dL (12.0-16.0); Mean Corpuscular Hgb Conc 31.3 g/dL (32-36); Mean Corpuscular Volume 82.5 fL (80-100); Mean Platelet Volume 8.3 fL (7.4-10.4); Platelet Count 310 K/uL (130-400); RDW Coefficient of Variation 14.9 % (11.5-14.5); RDW Standard Deviation 44.7 fL (36.4-46.3); Red Blood Count 4.22 M/uL (4.2-5.4); White Blood Count 11.84 K/uL (4.8-10.8)
[2018-12-04 05:11] LABS: iSTAT Creatinine 1.2 mg/dl (0.6-1.3); iSTAT Hemoglobin 11.6 g/dl (12.0-16.0); iSTAT Ionized Calcium 1.09 mmol/l (1.12-1.32); iSTAT Potassium 4.6 mEq/L (3.3-5.0)
[2018-12-04 05:13] LABS: INR 1.3 (0.9-1.1); Prothrombin Time 13.5 Seconds (9.0-12.0)
[2018-12-04] MEDS ORDERED: fentaNYL citrate 100 MCG/2 ML VIAL IV ONE ×3 (05:17→06:52)
[2018-12-04] MEDS ORDERED: cefTRIAXone SODIUM 1,000 MG in DEXTROSE 5% 50 ML IV STA (05:18)
[2018-12-04] MEDS ORDERED: CEFAZOLIN 250 MG/ML 1 GM VIAL IM STA (05:20)
[2018-12-04 05:21] LABS: Albumin Level 3.1 gm/dl (3.4-5.0); BUN Creatinine Ratio 15.4 (10-20); Calcium 8.5 mg/dl (8.5-10.1); Est GFR (African American) 53.2; Est GFR (Non-African American) 45.9; Potassium 4.4 mmol/L (3.5-5.1)
[2018-12-04] MEDS ORDERED: cefTRIAXone SODIUM 1000MG/50ML D5W IV ONE (05:21)
[2018-12-04] MEDS ORDERED: WATER, STERILE FOR INJ 10 ML VIAL ONE (05:23)
[2018-12-04 05:24] LABS: Albumin Globulin Ratio 0.8 (0.9-2); Bilirubin,Total 0.3 mg/dl (0.2-1); Globulin 3.7 gm/dl (2.5-4.0); Total Protein 6.8 gm/dl (6.4-8.2)
[2018-12-04] MEDS ORDERED: CEFAZOLIN 2000MG 2,000 MG/15 ML SYR IV STA (05:25)
--- NOTE | 2018-12-04 06:38 | History & Physical Report ---
Date of Service December 04, 2018 Assessment & Plan (1) Fracture, femur, distal: Patient is status post mechanical fall, with sustained comminuted, displaced distal femur fracture- Patient will be admitted to [facility] Hospitalist Service with consult to Dr. Villatoro from [facility]. NPO status. The patient was initially to be transferred to [facility] in [place], however, fog has caused the helicopter to divert. The patient did have an episode of hypotension while in the ED, and will therefore be moved to a monitored bed. Present on Admission?: Yes (2) Comminuted fracture of bone: See above Present on Admission?: Yes (3) Fall: Patient typically walks with a walker, however, she got up to try to walk without it, fell and fractured her distal femur. Present on Admission?: Yes (4) Hypotension: Patient had a low blood pressure of 80/62, that did improve to 106/60. Will give her 25 g of albumin IV, and normal saline at 60 mils per hour, monitoring her closely due to history of diastolic CHF. Admit to [facility] telemetry. Present on Admission?: Yes (5) DM (diabetes mellitus): Hold metformin, Lantus insulin 30 units subcu every morning 50 units subcu every afternoon along with standing orders for NovoLog 10 units subcu twice daily with meals. Placed on Accu-Cheks before meals and at bedtime with NovoLog coverage per scale . Glucose upon admission was 102. Present on Admission?: Yes (6) Pulmonary embolism: Patient has been anticoagulated on warfarin, however, her INR was 1.3 upon admission. We will hold further anticoagulation in anticipation of surgery. We will order lower extremity venous Dopplers since she is subtherapeutic, befo re being placed on SCDs. Present on Admission?: Yes (7) LBBB (left bundle branch block): Left bundle branch block/diastolic CHF/EF 65 to 70% on 01/03/2018- Follows with cardiology, consult. Present on Admission?: Yes (8) Anxiety: Anxiety and depression- Hold gabapentin, duloxetine, buspirone and amitriptyline. Present on Admission?: Yes (9) Depression: See above Present on Admission?: Yes (10) Hypothyroidism: Hold levothyroxine 200 mcg every morning. May give 100 mcg IV pending upon time of surgery. Present on Admission?: Yes (11) Chronic reflux esophagitis: Ranitidine 150 mg p.o. twice daily, change to Pepcid 20 mg IV twice daily Present on Admission?: Yes History of Present Illness Chief Complaint: The patient presents to the emergency department after having a fall when she attempted to walk without a walker earlier this morning, and developed severe pain just above her right knee. Primary Care Provider: Chavo Paz MD The patient is a 68-year-old female with amatory dysfunction, usually walks with a walker, was getting up to walk without the walker, fell and injured her right lower femur. Work-up in the emergency department included x-rays which showed a lower femur dislocated displaced fracture. Patient was attempted to be flown to [facility] at [place], but the helicopter to turn around due to fog. Dr. Villatoro from orthopedics will see the patient, and the patient be admitted to medical service due to hypotension and multiple medical issues. Allergies Allergy/AdvReac Type Severity Reaction Status Date / Time amoxicillin AdvReac Intermediate nausea Verified 12/04/18 04:48 clavulanic acid AdvReac Intermediate nausea Verified 12/04/18 04:48 Penicillins AdvReac Intermediate NAUSEA/VOMI Verified 12/04/18 04:48 TING Home Medications Home Medications Medication Instructions Recorded Confirmed Type acetaminophen [Tylenol Extra 100 mg PO Q8 PRN 05/08/18 12/04/18 History Strength] albuterol sulfate [Ventolin HFA] 2 puff INHALATION QID PRN 05/08/18 12/04/18 History amitriptyline 100 mg PO HS 05/08/18 12/04/18 History aspirin [Aspir-81] 81 mg PO QAM 05/08/18 12/04/18 History buspirone 7.5 mg PO BID 05/08/18 12/04/18 History carvedilol [Coreg] 12.5 mg PO BID 05/08/18 12/04/18 History docusate sodium 100 mg PO BID 05/08/18 12/04/18 History duloxetine [Cymbalta] 60 mg PO QAM 05/08/18 12/04/18 History esomeprazole magnesium [Nexium] 20 mg PO DAILY PRN 05/08/18 12/04/18 History ferrous sulfate [iron] 325 mg PO QAM 05/08/18 12/04/18 History fluticasone propionate [Flonase 2 spray INTRANASAL DAILY PRN 05/08/18 12/04/18 History Allergy Relief] furosemide [Lasix] 20 mg PO DAILY PRN 05/08/18 12/04/18 History levothyroxine [Synthroid] 200 mcg PO QAM 05/08/18 12/04/18 History loratadine [Claritin] 10 mg PO QAM 05/08/18 12/04/18 History losartan [Cozaar] 50 mg PO QAM 05/08/18 12/04/18 History meloxicam [Mobic] 7.5 mg PO BID PRN 05/08/18 12/04/18 History mirtazapine [Remeron] 15 mg PO HS 05/08/18 12/04/18 History ranitidine HCl [Zantac] 150 mg PO BID 05/08/18 12/04/18 History warfarin [Coumadin] See Rx Instructions .ROUTE .COMPLEX 05/08/18 12/04/18 History gabapentin 300 mg capsule 300 mg PO HS #30 cap 07/25/18 12/04/18 Rx insulin glargine (U-100) 100 30 units SUBCUT QAM ml 07/25/18 12/04/18 History unit/mL (3 mL) subcutaneous pen insulin glargine (U-100) 100 50 units SUBCUT QPM ml 07/25/18 12/04/18 History unit/mL (3 mL) subcutaneous pen cholecalciferol (vitamin D3) 1,000 unit PO BID 09/05/18 12/04/18 History [Vitamin D3] insulin aspart U-100 [Novolog 10 unit SUBCUT BIDM 09/07/18 12/04/18 History Flexpen U-100 Insulin] metformin 1,000 mg tablet 1,000 mg PO BID #60 tab 12/02/18 12/04/18 Rx Past Med/Surg History Medical History Hyperlipidemia (Acute) Bilateral carpal tunnel syndrome (Acute) Chronic reflux esophagitis (Acute) Edema (Acute) Fracture of rib of left side (Acute) Physical deconditioning (Acute) Vitamin D deficiency (Acute) DM (diabetes mellitus) (Chronic) Opiate withdrawal (Resolved) Chronic rhinitis (Chronic) Hypothyroidism (Chronic) Dyslipidemia (Chronic) Obesity (BMI 30.0-34.9) (Chronic) Osteoarthritis (Chronic) DM type 2 (diabetes mellitus, type 2) (Chronic) Depression (Chronic) Anxiety (Chronic) Hypertension (Chronic) Failed total left knee replacement (Chronic) History of bladder surgery (Chronic) Lumbar stenosis with neurogenic claudication Pulmonary embolism Surgical History History of appendectomy (Chronic) S/P hysterectomy (Chronic) S/P cataract surgery (Chronic) S/p bilateral carpal tunnel release (Chronic) Hx of shoulder surgery (Chronic) S/P thyroidectomy (Chronic) History of esophageal surgery (Chronic) History of total knee arthroplasty Family History Father Diabetes Hypertension Mother Stroke Hypertension Social History Preferred Language: [place] Citizen Communication Ability: Effective Visual Impairment: No Limitations Hearing Ability: Normal Beliefs That Will Affect Care: None marital status: / Current Living Situation: Alone current occupational status: retired Feels Safe at Home: Yes Smoking Status: Never smoker Hx Alcohol Use: No Hx Substance Use: No Review of Systems Review of Systems: The patient denies chest pain, palpitations, shortness of breath, dyspnea on exertion, cough, sore throat, fevers, chills, sweats, weight change, fatigue, nausea, vomiting, diarrhea , constipation, abdominal pain, pelvic pain, blood in urine or stool, dysuria, urinary frequency or urgency, lightheadedness, dizziness, headache, memory loss, loss of consciousness, rash, generalized arthralgias or myalgias, back or neck pain, or night sweats. The review of systems is otherwise negative other than for that already noted above, and at least 10 systems have been reviewed. Physical Exam Physical Exam: The patient is awake, alert and oriented 3, well developed and well nourished, normocephalic and atraumatic, lying in bed and in no acute distress status post pain medication. HEENT--PERRL, EOMI, mucous membranes and oropharynx normal. Neck--supple. No JVD. No bruits. Thyroid normal, trachea midline, no adenopathy. Heart--normal S1 and S2. No murmurs, rubs or gallops. Lungs--clear bilaterally, no respiratory distress, no accessory muscle use. Abdomen--normal bowel sounds and soft. Nontender. Nondistended. Morbidly obese Extremities--left lower extremity normal. Right lower extremity with complaint of bruising just above the knee with pain upon palpation. Dermatologic--as above. Neurologic--cranial nerves II through XII grossly intact. Rheumatologic--decreased range of motion due to fractures noted. Psychiatric--normal affect. Results & Data Vital Signs (Past 12 Hours) Vital Signs Temp Pulse Resp BP Pulse Ox 12/04/18 06:31 87 19 106/64 93 12/04/18 06:01 86 19 116/64 95 12/04/18 05:40 85 19 93 12/04/18 05:35 89 16 106/60 94 12/04/18 05:34 86 24 106/60 95 12/04/18 05:31 87 18 80/62 L 93 12/04/18 05:12 88 20 107/64 12/04/18 05:01 88 21 102/62 12/04/18 04:56 86 19 93/70 L 12/04/18 04:31 83 15 103/78 12/04/18 04:14 83 14 84/51 L 95 12/04/18 04:08 97.7 F 84 22 95/61 L 96 12/04/18 04:06 84 28 H 95/61 L Laboratory Results Laboratory Results WBC 11.84 K/uL (4.8-10.8) H 12/04/18 04:49 RBC 4.22 M/uL (4.2-5.4) 12/04/18 04:49 Hgb 10.9 g/dL (12.0-16.0) L 12/04/18 04:49 POC Hgb 11.6 g/dl (12.0-16.0) L 12/04/18 04:59 Hct 34.8 % (37-47) L 12/04/18 04:49 POC Hct 34 % (37-47) L 12/04/18 04:59 MCV 82.5 fL (80-100) 12/04/18 04:49 MCH 25.8 pg (25-34) 12/04/18 04:49 MCHC 31.3 g/dL (32-36) L 12/04/18 04:49 RDW Std Deviation 44.7 fL (36.4-46.3) 12/04/18 04:49 RDW Coeff of Daniel 14.9 % (11.5-14.5) H 12/04/18 04:49 Plt Count 310 K/uL (130-400) 12/04/18 04:49 MPV 8.3 fL (7.4-10.4) 12/04/18 04:49 PT 13.5 Seconds (9.0-12.0) H 12/04/18 04:49 POC INR 1.6 (0.9-1.1) H 12/04/18 04:50 INR 1.3 (0.9-1.1) H 12/04/18 04:49 POC Sodium 139 mEq/L (135-144) 12/04/18 04:59 Sodium 141 mmol/L (136-145) 12/04/18 04:49 POC Potassium 4.6 mEq/L (3.3-5.0) 12/04/18 04:59 Potassium 4.4 mmol/L (3.5-5.1) 12/04/18 04:49 POC Chloride 104 mEq/L (101-112) 12/04/18 04:59 Chloride 106 mmol/L (98-107) 12/04/18 04:49 Carbon Dioxide 28 mmol/L (21-32) 12/04/18 04:49 POC Total CO2 28 mEq/l (24-31) 12/04/18 04:59 Anion Gap 7.0 (3-11) 12/04/18 04:49 POC Anion Gap 13.0 mmol/L (16-25) L 12/04/18 04:59 POC BUN 21 mg/dl (7-18) H 12/04/18 04:59 BUN 19 mg/dl (7-18) H 12/04/18 04:49 Creatinine 1.21 mg/dl (0.6-1.2) H 12/04/18 04:49 POC Creatinine 1.2 mg/dl (0.6-1.3) 12/04/18 04:59 Est Cr Clr Drug Dosing 53.0 ml/min 12/04/18 04:49 Est GFR ( Amer) 53.2 12/04/18 04:49 Est GFR (Non-Af Amer) 45.9 12/04/18 04:49 BUN/Creatinine Ratio 15.4 (10-20) 12/04/18 04:49 Glucose 102 mg/dl (70-99) H 12/04/18 04:49 POC Glucose 79 (70-99) 12/04/18 04:05 POC Glucose (other) 102 mg/dl (70-99) H 12/04/18 04:59 Calcium 8.5 mg/dl (8.5-10.1) 12/04/18 04:49 POC Ioniz Calcium Margaret 1.09 mmol/l (1.12-1.32) L 12/04/18 04:59 Total Bilirubin 0.3 mg/dl (0.2-1) 12/04/18 04:49 AST 12 U/L (15-37) L 12/04/18 04:49 ALT 16 U/L (12-78) 12/04/18 04:49 Alkaline Phosphatase 130 U/L (45-117) H 12/04/18 04:49 Total Protein 6.8 gm/dl (6.4-8.2) 12/04/18 04:49 Albumin 3.1 gm/dl (3.4-5.0) L 12/04/18 04:49 Globulin 3.7 gm/dl (2.5-4.0) 12/04/18 04:49 Albumin/Globulin Ratio 0.8 (0.9-2) L 12/04/18 04:49 Blood Type A Positive 12/04/18 04:55 Antibody Screen NEGATIVE 12/04/18 04:55 Code Status & VTE Plan Code Status Full code VTE Prophylaxis Plan VTE Prophylaxis will be ordered: Yes PG Care Time/CCT Total # of Minutes Spent Total Time Spent with Patient: Total time spent is greater than 50% in coordination of care (as documented) at patient's floor/unit and/or counseling patient: (1) Fracture, femur, distal Encounter type: initial encounter Fracture morphology: unspecified fracture morphology Fracture type: closed Laterality: right Qualified Code(s): S72.401A - Unspecified fracture of lower end of right femur, initial encounter for closed fracture (2) Fall Encounter type: initial encounter Qualified Code(s): W19.XXXA - Unspecified fall, initial encounter (3) Hypotension Hypotension type: unspecified hypotension type Qualified Code(s): I95.9 - H ypotension, unspecified
[2018-12-04] MEDS ORDERED: SODIUM CHLORIDE 0.9% 1000ML 1,000 ML IV SCH (06:45)
[2018-12-04] MEDS ORDERED: ALBUMIN 25% 50 ML IV SCH (06:45)
--- NOTE | 2018-12-04 07:03 | Emergency Department Note ---
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 She reports that she was feeling like her sugar was low, so she was walking to get something to eat, and her right knee "buckled." The patient complains of right lower extremity pain. She denies any hip or back pain, loss of consciousness, and hitting her head. 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 The patient states that the Fentanyl has not provided any relief. Per EMS, the patient's blood sugar was 169 upon arrival at the scene. The nursing staff notes that her blood sugar was 70 upon arrival to the hospital. She notes that she is coming off of Warfarin for in preparation for a nerve block. Home Medications Home Medications Medication Instructions Recorded Confirmed Type acetaminophen [Tylenol Extra 100 mg PO Q8 PRN 05/08/18 12/04/18 History Strength] albuterol sulfate [Ventolin HFA] 2 puff INHALATION QID PRN 05/08/18 12/04/18 History amitriptyline 100 mg PO HS 05/08/18 12/04/18 History aspirin [Aspir-81] 81 mg PO QAM 05/08/18 12/04/18 History buspirone 7.5 mg PO BID 05/08/18 12/04/18 History carvedilol [Coreg] 12.5 mg PO BID 05/08/18 12/04/18 History docusate sodium 100 mg PO BID 05/08/18 12/04/18 History duloxetine [Cymbalta] 60 mg PO QAM 05/08/18 12/04/18 History esomeprazole magnesium [Nexium] 20 mg PO DAILY PRN 05/08/18 12/04/18 History ferrous sulfate [iron] 325 mg PO QAM 05/08/18 12/04/18 History fluticasone propionate [Flonase 2 spray INTRANASAL DAILY PRN 05/08/18 12/04/18 History Allergy Relief] furosemide [Lasix] 20 mg PO DAILY PRN 05/08/18 12/04/18 History levothyroxine [Synthroid] 200 mcg PO QAM 05/08/18 12/04/18 History loratadine [Claritin] 10 mg PO QAM 05/08/18 12/04/18 History losartan [Cozaar] 50 mg PO QAM 05/08/18 12/04/18 History meloxicam [Mobic] 7.5 mg PO BID PRN 05/08/18 12/04/18 History mirtazapine [Remeron] 15 mg PO HS 05/08/18 12/04/18 History ranitidine HCl [Zantac] 150 mg PO BID 05/08/18 12/04/18 History warfarin [Coumadin] See Rx Instructions .ROUTE .COMPLEX 05/08/18 12/04/18 History gabapentin 300 mg capsule 300 mg PO HS #30 cap 07/25/18 12/04/18 Rx insulin glargine (U-100) 100 30 units SUBCUT QAM ml 07/25/18 12/04/18 History unit/mL (3 mL) subcutaneous pen insulin glargine (U-100) 100 50 units SUBCUT QPM ml 07/25/18 12/04/18 History unit/mL (3 mL) subcutaneous pen cholecalciferol (vitamin D3) 1,000 unit PO BID 09/05/18 12/04/18 History [Vitamin D3] insulin aspart U-100 [Novolog 10 unit SUBCUT BIDM 09/07/18 12/04/18 History Flexpen U-100 Insulin] metformin 1,000 mg tablet 1,000 mg PO BID #60 tab 12/02/18 12/04/18 Rx Allergies Allergy/AdvReac Type Severity Reaction Status Date / Time amoxicillin AdvReac Intermediate nausea Verified 12/04/18 04:48 clavulanic acid AdvReac Intermediate nausea Verified 12/04/18 04:48 Penicillins AdvReac Intermediate NAUSEA/VOMI Verified 12/04/18 04:48 TING Past Med/Surg History Medical History Hyperlipidemia (Acute) Bilateral carpal tunnel syndrome (Acute) Chronic reflux esophagitis (Acute) Edema (Acute) Fracture of rib of left side (Acute) Physical deconditioning (Acute) Vitamin D deficiency (Acute) DM (diabetes mellitus) (Chronic) Opiate withdrawal (Resolved) Chronic rhinitis (Chronic) Hypothyroidism (Chronic) Dyslipidemia (Chronic) Obesity (BMI 30.0-34.9) (Chronic) Osteoarthritis (Chronic) DM type 2 (diabetes mellitus, type 2) (Chronic) Depression (Chronic) Anxiety (Chronic) Hypertension (Chronic) Failed total left knee replacement (Chronic) History of bladder surgery (Chronic) Lumbar stenosis with neurogenic claudication Pulmonary embolism Surgical History History of appendectomy (Chronic) S/P hysterectomy (Chronic) S/P cataract surgery (Chronic) S/p bilateral carpal tunnel release (Chronic) Hx of shoulder surgery (Chronic) S/P thyroidectomy (Chronic) History of esophageal surgery (Chronic) History of total knee arthroplasty Family History Father Diabetes Hypertension Mother Stroke Hypertension Social History Preferred Language: Uzbek Communication Ability: Effective Visual Impairment: No Limitations Hearing Ability: Normal Beliefs That Will Affect Care: None marital status: / Current Living Situation: Alone current occupational status: retired Feels Safe at Home: Yes Smoking Status: Never smoker Hx Alcohol Use: No Hx Substance Use: No Review of Systems See HPI for pertinent positives & negatives. and A total of 10 systems reviewed and were otherwise negative Physical Exam Vital Signs Vital Signs - 24 hr 12/04/18 04:06 12/04/18 04:08 12/04/18 04:14 Temperature 36.5 C Temperature Source Oral Sepsis Recent Fever Within 48 Hours No Sepsis Action Taken by Nursing No Action Required Pulse Rate 84 84 83 Pulse Rate from SpO2 Sensor 87 Pulse Rhythm Regular Pulse Strength Normal Respiratory Rate 28 H 22 14 Respiratory Effort / Characteristics Non-Labored Spontaneous Respiratory Depth Normal Blood Pressure 95/61 L 95/61 L 84/51 L Blood Pressure Mean 72 72 62 Blood Pressure Position Lying Pulse Oximetry 96 95 Oxygen Delivery Method Room Air 12/04/18 04:31 12/04/18 04:56 12/04/18 05:01 Temperature Temperature Source Sepsis Recent Fever Within 48 Hours Sepsis Action Taken by Nursing Pulse Rate 83 86 88 Pulse Rate from SpO2 Sensor Pulse Rhythm Pulse Strength Respiratory Rate 15 19 21 Respiratory Effort / Characteristics Respiratory Depth Blood Pressure 103/78 93/70 L 102/62 Blood Pressure Mean 86 77 75 Blood Pressure Position Pulse Oximetry Oxygen Delivery Method 12/04/18 05:12 12/04/18 05:31 12/04/18 05:34 Temperature Temperature Source Sepsis Recent Fever Within 48 Hours Sepsis Action Taken by Nursing Pulse Rate 88 87 86 Pulse Rate from SpO2 Sensor 89 86 Pulse Rhythm Pulse Strength Respiratory Rate 20 18 24 Respiratory Effort / Characteristics Respiratory Depth Blood Pressure 107/64 80/62 L 106/60 Blood Pressure Mean 78 68 75 Blood Pressure Position Pulse Oximetry 93 95 Oxygen Delivery Method 12/04/18 05:35 12/04/18 05:40 12/04/18 06:01 Temperature Temperature Source Sepsis Recent Fever Within 48 Hours Sepsis Action Taken by Nursing Pulse Rate 89 85 86 Pulse Rate from SpO2 Sensor 88 87 89 Pulse Rhythm Pulse Strength Respiratory Rate 16 19 19 Respiratory Effort / Characteristics Respiratory Depth Blood Pressure 106/60 116/64 Blood Pressure Mean 75 81 Blood Pressure Position Pulse Oximetry 94 93 95 Oxygen Delivery Method 12/04/18 06:31 Temperature Temperature Source Sepsis Recent Fever Within 48 Hours Sepsis Action Taken by Nursing Pulse Rate 87 Pulse Rate from SpO2 Sensor 85 Pulse Rhythm Pulse Strength Respiratory Rate 19 Respiratory Effort / Characteristics Respiratory Depth Blood Pressure 106/64 Blood Pressure Mean 78 Blood Pressure Position Pulse Oximetry 93 Oxygen Delivery Method HEENT: Head - normocephalic and atraumatic. Pupils are equal, round, and reactive to light. Extraocular eye muscles are intact, and sclera are anicteric. Nose - moist nasal mucosa without discharge. Mouth - moist buccal mucosa. Oropharynx is nonerythematous and there is no tonsillar exudate or edema noted. Neck: Supple; no pain to palpation over the posterior cervical spine Heart: Regular rate and rhythm. There is a normal S1 and S2 with no murmurs, clicks, or gallops appreciated. Lungs: Clear to auscultation bilaterally with no wheezes, rales, or rhonchi. Abdomen: Soft, completely nontender, nondistended, with good bowel sounds. There are no palpable pulsatile masses or hepatosplenomegaly. There is no guarding, rigidity, or rebound noted. Extremities: No evidence of cyanosis, clubbing, or edema. Obvious deformity to the right midshaft femur. Obvious tenting of skin from fracture of bone. Good sensation in both feet. Normal dorsalis pedis pulses bilaterally. Skin: warm and dry with good turgor and no rashes. Course 0313: I took the medical command call about the patient's case. 0408: The patient was evaluated in room A03. A complete history and physical exam was performed. Labs were drawn as above. The patient was observed on the court recording monitor and pulse oximeter. Patient was hypotensive and attempts were made at a second IV. This was finally obtained by the PA-C using ultrasound. The patient was given 25 mcg of IV fentanyl for pain. 0426: Fentanyl Citrate 25 mcg IV 0428: I was unsuccessful in retracting the skin and subcutaneous tissues from the protruding bone. 0448: I spoke with Dr. Kingsley Villatoro, [facility] orthopedic surgery, about the patients case. He recommended the patient be transferred to a trauma center. 0451: I spoke with the patients family, and they would like to go to [facility]. 0443: I did a point of care INR, and her INR was 1.6. 0458: I spoke with Dr. Josie Ragsdale, [facility], about the patients case. She accepted the patient, and we are waiting to hear if the patient can be transported by helicopter. 0515: The patient complained of more pain. 0517: Fentanyl Citrate 25 mcg IV 0525: Ancef 2000 mg in 15 ml IV for a nearly open femur fracture with tenting of the skin. 0526: Life flight did not continue flying here due to weather conditions. I recontact Dr. Villatoro to make him aware of the patient's inability for emergent transfer. 0536: Dr. Villatoro will come in to see the patient, because the helicopter turned around. 0538: I spoke with Dr. Gonzales, [facility] hospitalist, about the patient's case. He will further evaluate the patient for medical clearance for the operating room. 0549: Dr. Villatoro called me back in the emergency department to get additional details on the patient's case. I provided those details and explained that I was concerned about her significant hypotension upon arrival. Currently, her systolic blood pressure is 107. She is mentating normally. I am concerned that the patient may be hypotensive at times secondary to blood loss into the right thigh. 0608: I talked to Dr. Gonzales at the patients bedside. He will admit the patient to the hospital and consult Dr. Villatoro. Consultations Consultation #1: I spoke with Dr. Kingsley Villatoro, [facility] orthopedic surgery, about the patients case. He recommended the patient be transferred to a trauma center. Time: 04:48 Consultation #2: I spoke with Dr. Josie Ragsdale, [facility], about the patients case. She accepted the patient, and we are waiting to hear if the patient can be transported by helicopter Time: 04:58 Consultation #3: I spoke with Dr. Gonzales about the patients case. He will further evaluate the patient. Time: 05:38 Administered Medications Discontinued Medications Ceftriaxone Sodium (Rocephin) Confirm Administered Dose 1,000 mg IV .STK-MED ONE Stop: 12/04/18 05:22 Last Admin: 12/04/18 05:23 Dose: Not Given Documented by: [id number] Fentanyl Citrate (Fentanyl Citrate) Confirm Administered Dose 100 mcg .ROUTE .STK-MED ONE Stop: 12/04/18 04:26 Last Increment: 12/04/18 04:26 Dose: 25 mcg Documented by: [id number] Fentanyl Citrate (Fentanyl Citrate) 25 mcg IV NOW ONE Stop: 12/04/18 05:18 Last Admin: 12/04/18 05:28 Dose: 25 mcg Documented by: [id number] Fentanyl Citrate (Fentanyl Citrate) 25 mcg IV NOW ONE Stop: 12/04/18 05:19 Last Admin: 12/04/18 05:19 Dose: Not Given Documented by: [id number] Ceftriaxone Sodium 1,000 mg/ (Dextrose) 60 mls @ 100 mls/hr IV NOW STA; Protocol Stop: 12/04/18 05:53 Last Admin: 12/04/18 05:23 Dose: Not Given Documented by: [id number] Cefazolin Sodium (Ancef 2000mg) 2,000 mg in 15 mls @ 3.75 mls/min IV NOW STA Stop: 12/04/18 05:28 Last Admin: 12/04/18 05:33 Dose: 3.75 mls/min Documented by: [id number] Sterile Water (Sterile Water Inj) Confirm Administered Dose 10 ml .ROUTE .STK- MED ONE Stop: 12/04/18 05:24 Last Admin: 12/04/18 05:25 Dose: Not Given Documented by: [id number] Medical Decision Making Differential Diagnosis The differential diagnosis includes: Midshaft femur fracture, open fracture, comminuted fracture, and knee dislocation. Medical Records Attestation: I reviewed the patient's medical records. Home Medications Current Medication List: was personally reviewed by me Laboratory Data Attestation: I reviewed the patient's lab results. Result diagrams: 12/04/18 04:49 12/04/18 04:49 Lab Results 12/04/18 12/04/18 12/04/18 Range/Units 04:05 04:49 04:49 WBC 11.84 H (4.8-10.8) K/uL RBC 4.22 (4.2-5.4) M/uL Hgb 10.9 L (12.0-16.0) g/dL POC Hgb (12.0-16.0) g/dl Hct 34.8 L (37-47) % POC Hct (37-47) % MCV 82.5 (80-100) fL MCH 25.8 (25-34) pg MCHC 31.3 L (32-36) g/dL RDW Std Deviation 44.7 (36.4-46.3) fL RDW Coeff of Daniel 14.9 H (11.5-14.5) % Plt Count 310 (130-400) K/uL MPV 8.3 (7.4-10.4) fL PT 13.5 H (9.0-12.0) Seconds POC INR (0.9-1.1) INR 1.3 H (0.9-1.1) POC Sodium (135-144) mEq/L Sodium (136-145) mmol/L POC Potassium (3.3-5.0) mEq/L Potassium (3.5-5.1) mmol/L POC Chloride (101-112) mEq/L Chloride (98-107) mmol/L Carbon Dioxide (21-32) mmol/L POC Total CO2 (24-31) mEq/l Anion Gap (3-11) POC Anion Gap (16-25) mmol/L POC BUN (7-18) mg/dl BUN (7-18) mg/dl Creatinine (0.6-1.2) mg/dl POC Creatinine (0.6-1.3) mg/dl Est Cr Clr Drug Dosing ml/min Est GFR ( Amer) Est GFR (Non-Af Amer) BUN/Creatinine Ratio (10-20) Glucose (70-99) mg/dl POC Glucose 79 (70-99) POC Glucose (other) (70-99) mg/dl Calcium (8.5-10.1) mg/dl POC Ioniz Calcium Margaret (1.12-1.32) mmol/l Total Bilirubin (0.2-1) mg/dl AST (15-37) U/L ALT (12-78) U/L Alkaline Phosphatase (45-117) U/L Total Protein (6.4-8.2) gm/dl Albumin (3.4-5.0) gm/dl Globulin (2.5-4.0) gm/dl Albumin/Globulin Ratio (0.9-2) Blood Type Antibody Screen 12/04/18 12/04/18 12/04/18 Range/Units 04:49 04:50 04:55 WBC (4.8-10.8) K/uL RBC (4.2-5.4) M/uL Hgb (12.0-16.0) g/dL POC Hgb (12.0-16.0) g/dl Hct (37-47) % POC Hct (37-47) % MCV (80-100) fL MCH (25-34) pg MCHC (32-36) g/dL RDW Std Deviation (36.4-46.3) fL RDW Coeff of Daniel (11.5-14.5) % Plt Count (130-400) K/uL MPV (7.4-10.4) fL PT (9.0-12.0) Seconds POC INR 1.6 H (0.9-1.1) INR (0.9-1.1) POC Sodium (135-144) mEq/L Sodium 141 (136-145) mmol/L POC Potassium (3.3-5.0) mEq/L Potassium 4.4 (3.5-5.1) mmol/L POC Chloride (101-112) mEq/L Chloride 106 (98-107) mmol/L Carbon Dioxide 28 (21-32) mmol/L POC Total CO2 (24-31) mEq/l Anion Gap 7.0 (3-11) POC Anion Gap (16-25) mmol/L POC BUN (7-18) mg/dl BUN 19 H (7-18) mg/dl Creatinine 1.21 H (0.6-1.2) mg/dl POC Creatinine (0.6-1.3) mg/dl Est Cr Clr Drug Dosing 53.0 ml/min Est GFR ( Amer) 53.2 Est GFR (Non-Af Amer) 45.9 BUN/Creatinine Ratio 15.4 (10-20) Glucose 102 H (70-99) mg/dl POC Glucose (70-99) POC Glucose (other) (70-99) mg/dl Calcium 8.5 (8.5-10.1) mg/dl POC Ioniz Calcium Margaret (1.12-1.32) mmol/l Total Bilirubin 0.3 (0.2-1) mg/dl AST 12 L (15-37) U/L ALT 16 (12-78) U/L Alkaline Phosphatase 130 H (45-117) U/L Total Protein 6.8 (6.4-8.2) gm/dl Albumin 3.1 L (3.4-5.0) gm/dl Globulin 3.7 (2.5-4.0) gm/dl Albumin/Globulin Ratio 0.8 L (0.9-2) Blood Type A Positive Antibody Screen NEGATIVE 12/04/18 Range/Units 04:59 WBC (4.8-10.8) K/uL RBC (4.2-5.4) M/uL Hgb (12.0-16.0) g/dL POC Hgb 11.6 L (12.0-16.0) g/dl Hct (37-47) % POC Hct 34 L (37-47) % MCV (80-100) fL MCH (25-34) pg MCHC (32-36) g/dL RDW Std Deviation (36.4-46.3) fL RDW Coeff of Daniel (11.5-14.5) % Plt Count (130-400) K/uL MPV (7.4-10.4) fL PT (9.0-12.0) Seconds POC INR (0.9-1.1) INR (0.9-1.1) POC Sodium 139 (135-144) mEq/L Sodium (136-145) mmol/L POC Potassium 4.6 (3.3-5.0) mEq/L Potassium (3.5-5.1) mmol/L POC Chloride 104 (101-112) mEq/L Chloride (98-107) mmol/L Carbon Dioxide (21-32) mmol/L POC Total CO2 28 (24-31) mEq/l Anion Gap (3-11) POC Anion Gap 13.0 L (16-25) mmol/L POC BUN 21 H (7-18) mg/dl BUN (7-18) mg/dl Creatinine (0.6-1.2) mg/dl POC Creatinine 1.2 (0.6-1.3) mg/dl Est Cr Clr Drug Dosing ml/min Est GFR ( Amer) Est GFR (Non-Af Amer) BUN/Creatinine Ratio (10-20) Glucose (70-99) mg/dl POC Glucose (70-99) POC Glucose (other) 102 H (70-99) mg/dl Calcium (8.5-10.1) mg/dl POC Ioniz Calcium Margaret 1.09 L (1.12-1.32) mmol/l Total Bilirubin (0.2-1) mg/dl AST (15-37) U/L ALT (12-78) U/L Alkaline Phosphatase (45-117) U/L Total Protein (6.4-8.2) gm/dl Albumin (3.4-5.0) gm/dl Globulin (2.5-4.0) gm/dl Albumin/Globulin Ratio (0.9-2) Blood Type Antibody Screen Imaging Data Attestation: I personally reviewed and interpreted this imaging study as follows: My Impression: XR knee RT 2V: Comminuted distal femur fracture. Significant soft tissue swelling. Hardware in place. 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 The patient has a comminuted distal right femur fracture with the proximal portion of the fractured femur causing significant tenting of the skin over the anterior, distal thigh. The patient is neurovascularly intact distal to this. She has significant edema surrounding the fracture. The patient has a history of hypertension and normally has elevated blood pressures. Upon presentation, she was significantly hypotensive. She was bolused with 750 cc of normal saline solution currently has a systolic blood pressure of 107. The patient was typed and screened. Arrangements were made to have the patient flown to [facility] for trauma evaluation considering the patient is on anticoagulation for pulmonary emboli and that she is diabetic with a significant fracture that is tenting the skin. I felt this was time sensitive considering the hypotension and the compromise to the overlying skin. Unfortunately, the aeromedical transportation had to be canceled secondary to weather. I did not feel comfortable having this patient transferred to [facility] by ambulance of the significant hypotension upon presentation. Dr. Ann evaluated the patient in the emergency department and was willing to admit to the hospital and consult Dr. Villatoro. The patient received an additional dose of IV fentanyl for pain management. Impression & Plan Fracture, femur, distal, Comminuted fracture of bone, Fall, Hypotension Critical Care Time Critical Care Time: Yes Total Critical Care Time: 95 I have personally spent 95 minutes of critical care time in the direct management of this patient. This includes bedside care, interpretation of diagnostic studies, and testing, discussion with consultants, patient, and family members, and other required patient management activities. This 95 minutes is in excess of all separately billable procedures. : Fracture, femur, distal Qualifiers: Encounter type: initial encounter Fracture type: closed Fracture morphology: unspecified fracture morphology Laterality: right Qualified Code(s): S72.401A - Unspecified fracture of lower end of right femur, initial encounter for closed fracture Fall Qualifiers: Encounter type: initial encounter Qualified Code(s): W19.XXXA - Unspecified fall, initial encounter Hypotension Qualifiers: Hypotension type: unspecified hypotension type Qualified Code(s): I95.9 - Hypotension, unspecified The scribe's documentation has been prepared under my direction and personally reviewed by me in its entirety. I confirm that the note above accurately reflects all work, treatment, procedures, and medical decision making performed by me.
--- NOTE | 2018-12-04 07:18 | XRay Report ---
RIGHT KNEE 2 VIEWS CLINICAL HISTORY: Fall. Fracture. FINDINGS: AP and crosstable lateral views of the right knee are compared to study dated 07/26/2017. Th e skeletal structures are osteopenic. A right knee arthroplasty is in near-anatomic alignment. There has been undersurface remodeling of the patella. There is a comminuted spiral fracture through the di stal femoral metadiaphysis. There is dorsal distraction of the largest distal fragment by over 2 cm, as well as overriding of the fragments by at least 3 cm. There are numerous small distracted fragment s. Fracture extends to the femoral component of the arthroplasty. There is lipohemarthrosis. The prox imal tibia and fibula are maintained. Soft tissue edema is present in the distal thigh. IMPRESSION: 1. There is a comminuted, distracted, and overriding fracture of the distal femoral metadiaphysis as above. 2. The fracture extends to the femoral component of the arthroplasty. 3. Soft tissue swelling and lipohemarthrosis. Electronically signed by: Tomas Can M.D. 12/04/2018 7:17 AM
--- NOTE | 2018-12-04 07:47 | Anesthesiology Consultation ---
Date of Service December 04, 2018 Assessment & Plan (1) Encounter for pre-operative examination: Chart Review Chart Review: Acceptable Risk for Surgery Consults Requested none ASA [id number] Proposed Anesthesia Anesthesia Type: MAC Risk / Benefits Reviewed With: PT / POA / Parent / Guardian, Accepts Plan and Informed Consent Obtained History Surgery Operation Date: 12/04/18 11:20 Proposed Procedures p Right Closed Reduction Periprosthetic Fracture - Kingsley Villatoro DO Height/Weight Height: 5 ft 2 in Weight: 113.6 kg Allergies Allergy/AdvReac Type Severity Reaction Status Date / Time amoxicillin AdvReac Intermediate nausea Verified 12/04/18 04:48 clavulanic acid AdvReac Intermediate nausea Verified 12/04/18 04:48 Penicillins AdvReac Intermediate NAUSEA/VOMI Verified 12/04/18 04:48 TING Medications Home Medications Medication Instructions Recorded Confirmed Last Taken acetaminophen [Tylenol Extra 100 mg PO Q8 PRN 05/08/18 12/04/18 Unknown Strength] albuterol sulfate [Ventolin HFA] 2 puff INHALATION QID PRN 05/08/18 12/04/18 09/07/18 amitriptyline 100 mg PO HS 05/08/18 12/04/18 12/03/18 aspirin [Aspir-81] 81 mg PO QAM 05/08/18 12/04/18 12/03/18 buspirone 7.5 mg PO BID 05/08/18 12/04/18 12/03/18 carvedilol [Coreg] 12.5 mg PO BID 05/08/18 12/04/18 12/03/18 docusate sodium 100 mg PO BID 05/08/18 12/04/18 12/03/18 duloxetine [Cymbalta] 60 mg PO QAM 05/08/18 12/04/18 12/03/18 esomeprazole magnesium [Nexium] 20 mg PO DAILY PRN 05/08/18 12/04/18 09/07/18 ferrous sulfate [iron] 325 mg PO QAM 05/08/18 12/04/18 12/03/18 fluticasone propionate [Flonase 2 spray INTRANASAL DAILY PRN 05/08/18 12/04/18 Unknown Allergy Relief] furosemide [Lasix] 20 mg PO DAILY PRN 05/08/18 12/04/18 09/07/18 levothyroxine [Synthroid] 200 mcg PO QAM 05/08/18 12/04/18 12/03/18 loratadine [Claritin] 10 mg PO QAM 05/08/18 12/04/18 12/03/18 losartan [Cozaar] 50 mg PO QAM 05/08/18 12/04/18 12/03/18 meloxicam [Mobic] 7.5 mg PO BID PRN 05/08/18 12/04/18 12/03/18 mirtazapine [Remeron] 15 mg PO HS 05/08/18 12/04/18 12/03/18 ranitidine HCl [Zantac] 150 mg PO BID 05/08/18 12/04/18 12/03/18 warfarin [Coumadin] See Rx Instructions .ROUTE .COMPLEX 05/08/18 12/04/18 12/02/18 gabapentin 300 mg capsule 300 mg PO HS #30 cap 07/25/18 12/04/18 12/03/18 insulin glargine (U-100) 100 30 units SUBCUT QAM ml 07/25/18 12/04/18 12/03/18 unit/mL (3 mL) subcutaneous pen insulin glargine (U-100) 100 50 units SUBCUT QPM ml 07/25/18 12/04/18 12/03/18 unit/mL (3 mL) subcutaneous pen cholecalciferol (vitamin D3) 1,000 unit PO BID 09/05/18 12/04/18 12/03/18 [Vitamin D3] insulin aspart U-100 [Novolog 10 unit SUBCUT BIDM 09/07/18 12/04/18 12/03/18 Flexpen U-100 Insulin] metformin 1,000 mg tablet 1,000 mg PO BID #60 tab 12/02/18 12/04/18 12/03/18 NPO Date Last Intake of Fluids: 12/03/18 Time Last Intake of Fluids: 18:30 Date Last Intake of Solids: 12/03/18 Time Last Intake of Solids: 18:30 Past Medical History Medical History Hyperlipidemia (Acute) Bilateral carpal tunnel syndrome (Acute) Chronic reflux esophagitis (Acute) Edema (Acute) Fracture of rib of left side (Acute) Physical deconditioning (Acute) Vitamin D deficiency (Acute) DM (diabetes mellitus) (Chronic) Opiate withdrawal (Resolved) Chronic rhinitis (Chronic) Hypothyroidism (Chronic) Dyslipidemia (Chronic) Obesity (BMI 30.0-34.9) (Chronic) Osteoarthritis (Chronic) DM type 2 (diabetes mellitus, type 2) (Chronic) Depression (Chronic) Anxiety (Chronic) Hypertension (Chronic) Failed total left knee replacement (Chronic) History of bladder surgery (Chronic) Lumbar stenosis with neurogenic claudication Pulmonary embolism Exercise / Class Metabolic Activity II 4-5 Yardwork/Stairs/Walk up hill Past Family History Family History Father Diabetes Hypertension Mother Stroke Hypertension Past Surgical History Surgical History History of appendectomy (Chronic) S/P hysterectomy (Chronic) S/P cataract surgery (Chronic) S/p bilateral carpal tunnel release (Chronic) Hx of shoulder surgery (Chronic) S/P thyroidectomy (Chronic) History of esophageal surgery (Chronic) History of total knee arthroplasty Past Anesthesia History No Hx of Anesthesia Complications and No Family Hx of Anesthesia Complications History of PONV No Hx of PONV and No Hx of Motion Sickness Social History Smoking Status: Never smoker Hx Alcohol Use: No Hx Substance Use: No Physical Exam Vital Signs Last Vital Signs Temp 97.7 F 12/04/18 04:08 Pulse 90 12/04/18 07:45 Resp 28 H 12/04/18 07:45 BP 97/71 L 12/04/18 07:45 Pulse Ox 91 12/04/18 07:45 ENMT Mouth: + edentulous Thyromental Distance: > or= 3.5 Finger Breadths Mallampati Class: III Neck normal visual inspection Respiratory normal respiratory effort Auscultation: lungs clear to auscultation bilaterally Cardiovascular Rate/Rhythm: regular rate and regular rhythm Testing Laboratory Results 12/04/18 04:49 12/04/18 04:49 PT 13.5 Seconds (9.0-12.0) H 12/04/18 04:49 INR 1.3 (0.9-1.1) H 12/04/18 04:49 Blood Type A Positive 12/04/18 04:55 Antibody Screen NEGATIVE 12/04/18 04:55 12/04/18 12/04/18 04:59 04:05 POC Glucose 79 POC Glucose (other) 102 H Electrocardiogram Date: 12/04/18 Findings: + NSR @ (84 bpm) Chest X-Ray Date: 09/05/18 Findings: + NAD Echocardiogram Date: 10/18/17 EF: 45-50% Other Findings: + diastolic dysfunction (grade 1) Mild lateral and anterior hypokinesis Septal motion is consistent with conduction abnormality RVSP is normal
[2018-12-04] MEDS ORDERED: fentaNYL citrate 100 MCG/2 ML VIAL IV PRN (08:20)
[2018-12-04] MEDS ORDERED: ATROPINE SULFATE 0.1 MG/ML 10ML SYR IV PRN (08:20)
[2018-12-04] MEDS ORDERED: ONDANSETRON INJ 2 MG/ML 2 ML VIAL IV PRN ×2 (08:20→08:57)
[2018-12-04] MEDS ORDERED: ePHEDrine sulfate 50 MG/ML AMP IV PRN (08:20)
--- NOTE | 2018-12-04 08:33 | History & Physical Bridge Note ---
Date of Service December 04, 2018 History & Physical Bridge Note I have examined the patient, reviewed the History & Physical and in the interval since the performance of the History & Physical I have noted the following changes of clinical significance: no changes noted. To OR now for closed reduction right distal femur.
--- NOTE | 2018-12-04 08:42 | Consultation Report ---
DATE OF CONSULTATION: 12/04/2018 NOTICE TO RECEIVING GREEN PARTY/AGENCY This information is strictly Confidential and protected under [place] law. [place] law prohibits you from making any further disclosure of this information unless further disclosure is expressly permitted by the written consent of the person to whom it pertains or is authorized by law. A general authorization for the release of medical or other information is not sufficient for this purpose. Hospital accepts no responsibility if the information is made available to any other person, INCLUDING THE PATIENT. PERTINENT HISTORY: This is a 68-year-old female who is in her usual state of health and she was attempting to walk without a walker earlier this morning developed severe pain just above her right knee and fell. She had an injury to her right lower leg, which was obvious deformity. She was transferred to [facility] where she was evaluated by the Emergency Department physician. The patient had obvious skin compromise along the medial distal femur due to a large spike of bone which had punctured the muscle and fascia and into the dermis. Muscle spasm prevented easy reduction or stabilization with a splint by the Emergency Department physician. The patient was also hypotensive with chronic CHF, ejection fraction of 65-70%. Concern regarding wound compromise, difficulty fracture fixation and hypotension prompted attempt at transfer to [facility] for immediate orthopedic trauma care. However, the helicopter had to turn around due to fog. The patient's pressure was then stabilized with IV fluid boluses. The patient has been anticoagulated on warfarin. She has multiple medical comorbidities with a history also of a pulmonary embolism. PAST MEDICAL HISTORY: Pulmonary embolism, lumbar stenosis, hypertension, anxiety, depression, diabetes type 2, osteoarthritis, obesity, BMI 30-34.9, dyslipidemia, hypothyroidism, opiate withdrawal resolved, vitamin D deficiency, physical deconditioning, edema, chronic reflux esophagitis, bilateral carpal tunnel syndrome and recent hypotension currently controlled, chronic CHF with low ejection fraction. PAST SURGICAL HISTORY: Appendectomy, hysterectomy, bilateral carpal tunnel release, right total knee arthroplasty, cataract surgery, shoulder surgery, thyroidectomy, esophageal surgery. ALLERGIES: AMOXICILLIN, CLAVULANIC ACID AND PENICILLIN. MEDICATIONS: Acetaminophen, albuterol, amitriptyline, aspirin 81 mg, buspirone, carvedilol, docusate sodium, duloxetine, Nexium, ferrous sulfate, Flonase, Lasix, Synthroid, Claritin, Cozaar, Mobic, Remeron, Zantac, Coumadin, gabapentin, insulin, vitamin D3, NovoLog and metformin. SOCIAL HISTORY: She is a . She lives alone. She is retired. Denies tobacco, alcohol or drug use. PHYSICAL EXAMINATION: This is an obese 68-year-old woman lying supine in the ER transfer cart. Family present. She is alert and oriented x3. Speech clear and fluent. Affect is appropriate. Currently no acute distress. Examination of the right lower extremity demonstrates a spike of the medial proximal distal femur, tenting of the skin with potential skin compromise. Valgus deformity and shortening of the right lower extremity is noted. Tenderness to palpation on the distal femur. The right lower extremity is in spasm. Dorsalis pedis and posterior pulses are palpable. Foot is warm. No range of motion at the right knee due to pain and guarding. No strength testing could be performed due to guarding. X-rays demonstrate a displaced periprosthetic distal femur fracture with a medial spike impending puncture through the soft tissue. Slight valgus deformity and shortening is noted. Osteopenia is evident. Total knee appears to be stable. IMPRESSION: 1. Right knee displaced shortened periprosthetic distal femur fracture. 2. Impending wound compromise with tenting skin medial distal femur. 3. Hypotension now stable. 4. Multiple medical comorbidities including current anticoagulation. RECOMMENDATION: The patient will be scheduled for closed reduction of the distal femoral fracture to reduce the fracture displacement and to relax her entirely to get the spike of bone reduced under the fascia. We will then assess her medical condition for stability for possible ORIF here at [facility] versus transfer to [place] as initially considered. Thank you for the opportunity to consult and care for this patient.
[2018-12-04] MEDS ORDERED: BISACODYL 10 MG SUPP PR PRN (08:57)
[2018-12-04] MEDS ORDERED: NALOXONE HCL 0.4 MG/1 ML VIAL/CARP IV PRN (08:57)
[2018-12-04] MEDS ORDERED: HYDROmorphone INJ 0.5 MG/0.5 ML SYR IV PRN (08:57)
[2018-12-04] MEDS ORDERED: OXYCODONE HCL IR 5 MG TAB (IMMEDIATE RELEASE) PO PRN (08:57)
[2018-12-04] MEDS ORDERED: MAGNESIUM HYDROXIDE SUSP 30 ML UDC PO PRN (08:57)
[2018-12-04] MEDS ORDERED: DOCUSATE SODIUM 100 MG CAP PO SCH (09:00)
[2018-12-04] MEDS ORDERED: MULTIVITAMIN TAB PO SCH (09:00)
--- NOTE | 2018-12-04 09:06 | Post Operative Brief Note ---
Immediate Post Op Note v1 Date of Surgery December 04, 2018 Pre & Post Diagnosis Operation Date: 12/04/18 11:20 Pre-Op Diagnosis: Right comminuted distal Periprosthetic Femur Fracture, skin compromise medial distal femur Post-Op Diagnosis: Right comminuted distal Periprosthetic Femur Fracture, skin compromise medial distal femur Operation Date: 12/05/18 07:00 <No data on this case meets the specified criteria> Procedure Operation Date: 12/04/18 11:20 Actual Procedures p Closed Reduction comminuted angulated distal Periprosthetic Femur Fracture with skin compromise medial distal femur (Right) - Kingsley Villatoro DO Operation Date: 12/05/18 07:00 <No data on this case meets the specified criteria> Surgeon Kingsley Villatoro DO Labor Economics Professor Byron Harvey PA-C Estimated Blood Loss 0 Findings Consistent with Post-Op Diagnosis Specimens None Anesthesia Type General Complications none Disposition Accompanied Patient To Recovery: Yes Disposition: Recovery Room
--- NOTE | 2018-12-04 09:14 | Fluoroscopy Report ---
INTRAOPERATIVE RADIOGRAPHS CLINICAL HISTORY: Closed reduction of the right femur. Fluoroscopy time: 12 seconds. FINDINGS: 3 spot fluoroscopic views of the distal right femur are correlated with radiographs dated . A right knee arthroplasty is in place. Again seen is a comminuted, distracted, and overridi ng fracture of the distal femoral metadiaphysis with small distracted fragments. There is mild apex d orsal angulation, lateral distraction of the largest distal fragment, and overriding of the fragments . IMPRESSION: Intraoperative images from closed reduction of a distal femoral fracture as above. Electronically signed by: Tomas Can M.D. 12/04/2018 9:12 AM
[2018-12-04] MEDS ORDERED: PROPOFOL IV EMULSION 10 MG/ML 20 ML VIAL IV ONE (09:15)
[2018-12-04] MEDS ORDERED: PHENYLEPHRINE HCL 10 MG/ML VIAL ONE (09:15)
[2018-12-04] MEDS ORDERED: LIDOCAINE HCL 2% 2 ML VIAL/AMP(20MG/ML) INFIL ONE (09:15)
[2018-12-04] MEDS: fentaNYL citrate 100 MCG/2 ML VIAL IV STA ×2 (09:36→09:45)
--- NOTE | 2018-12-04 09:56 | Anesthesiology Progress Note ---
Date of Service December 04, 2018 Anesthesia Post Procedure Vital Signs Vital Signs: Temp Pulse Pulse Pulse Resp BP BP 12/04/18 09:45 90 18 122/69 12/04/18 09:35 91 H 20 104/55 L 12/04/18 09:25 92 H 14 106/64 12/04/18 09:15 91 H 23 106/50 L 12/04/18 09:05 96.8 F L 103 H 21 148/66 H 12/04/18 07:56 97.9 F 85 18 12/04/18 07:45 90 28 H 12/04/18 07:21 92 H 18 12/04/18 06:31 87 19 106/64 12/04/18 06:01 86 19 116/64 12/04/18 05:40 85 19 12/04/18 05:35 89 16 106/60 12/04/18 05:34 86 24 106/60 12/04/18 05:31 87 18 80/62 L 12/04/18 05:12 88 20 107/64 12/04/18 05:01 88 21 102/62 12/04/18 04:56 86 19 93/70 L 12/04/18 04:31 83 15 103/78 12/04/18 04:14 83 14 84/51 L 12/04/18 04:08 97.7 F 84 22 95/61 L 12/04/18 04:06 84 28 H 95/61 L BP Pulse Ox 12/04/18 09:45 91 12/04/18 09:35 92 12/04/18 09:25 95 12/04/18 09:15 93 12/04/18 09:05 88 L 12/04/18 07:56 101/71 91 12/04/18 07:45 97/71 L 91 12/04/18 07:21 84/61 L 94 12/04/18 06:31 93 12/04/18 06:01 95 12/04/18 05:40 93 12/04/18 05:35 94 12/04/18 05:34 95 12/04/18 05:31 93 12/04/18 05:12 12/04/18 05:01 12/04/18 04:56 12/04/18 04:31 12/04/18 04:14 95 12/04/18 04:08 96 12/04/18 04:06 Pain Intensity Right Leg: Pain Intensity: 4 Transfer of Care Handoff Completed per policy Notes Mental Status: alert / awake / arousable and participated in evaluation Patient Amnestic to Procedure: Yes Nausea / Vomiting: adequately controlled Pain: adequately controlled Airway Patency, RR, SpO2: stable & adequate BP & HR: stable & adequate Hydration State: stable & adequate Anesthetic Complications: no major complications apparent and Pt Satisfied with anesthetic care
[2018-12-04] MEDS ORDERED: GLUCOSE 10 TABS/TUBE PO PRN (10:23)
[2018-12-04] MEDS ORDERED: GLUCAGON FOR INJ 1 MG VIAL SQ PRN (10:23)
[2018-12-04] MEDS ORDERED: ACETAMINOPHEN 1,000 MG/100 ML VIAL IV PRN (10:23)
[2018-12-04] MEDS ORDERED: GLUCOSE 40% GEL 15 GM TUBE PO PRN (10:23)
[2018-12-04] MEDS ORDERED: DEXTROSE 50% 50 ML SYRINGE IV PRN (10:23)
[2018-12-04] MEDS ORDERED: CARBOHYDRATES FOR HYPOGLYCEMIA PO PRN (10:23)
--- NOTE | 2018-12-04 10:31 | Operative Report ---
DATE OF OPERATION: 12/04/2018 PREOPERATIVE DIAGNOSES: 1. Right angulated, displaced, comminuted periprosthetic distal femur fracture. 2. Skin compromise, medial distal femur. POSTOPERATIVE DIAGNOSES: 1. Right angulated, displaced, comminuted periprosthetic distal femur fracture. 2. Skin compromise, medial distal femur. PROCEDURES: 1. Closed reduction, right displaced, comminuted periprosthetic distal femur fracture. 2. Reduction of skin compromise and tenting. SURGEON: Kingsley Villatoro DO SEASONAL CLERK: Byron Harvey PA-C. JANNA was present for the entirety of the case for patient transfer, patient positioning, maintenance of counter traction, and assistance with closed reduction of the right distal femur fracture. PA assisted with application of a knee immobilizer and transferred the patient back to the recovery room in stable condition. ANESTHESIA: General with a mask airway. SPECIMENS: None. DRAINS: None. COMPLICATIONS: None. BLOOD LOSS: Zero. OPERATIVE INDICATIONS: This is a 68-year-old woman who is in her normal state of health. She was supposed to be walking on a walker. She had some sort of discomfort in the right lower extremity, her leg gave out on her and then she had a valgus stress that happened to the right leg producing a comminuted distal femur fracture. Unable to ambulate due to the fracture of the right lower thigh and the patient was then transferred to [facility]. She was seen by the Emergency Department physician. She was noted to be hypotensive, history of pulmonary embolism on chronic anticoagulation with ejection fraction of 65-70% and severe pain with medial skin compromise. Initial decision was made to transfer the patient to [facility]; however, a helicopter was fogged in. The patient was then stabilized with volume expansion and IVs. The patient was then scheduled for closed reduction of the right distal periprosthetic femur fracture to remove skin tension on an impending open fracture with skin compromise. The patient was scheduled for surgery as indicated. All potential risks, benefits, complications, alternatives, rehab, potential for incomplete relief of symptoms, need for further surgery, DVT, PE, , persistent pain, swelling, scarring, weakness, neurovascular injury, wound complications, possible need for amputation or skin grafting, possible need for distal femoral replacement were discussed with the patient and family decided to proceed with procedure as indicated. DESCRIPTION OF PROCEDURE: The patient was taken to the operative suite, placed supine on the operating table. I reviewed consent and identification of proper operative site. The patient was anesthetized and mask airway was maintained. A gentle closed reduction maneuver was performed with counter traction of the pelvis. Palpable shift in the fracture was noted and the tenting of the skin was then reduced as the buttonholed fragment of distal femur was then allowed to pass through the fascia and then the skin was then reduced over the top of the distal spike of bone in the femur. Alignment was improved, under live fluoroscopic assistance, both in AP and lateral projections. Next, a knee immobilizer was applied to the right lower extremity, stabilizing the fracture in satisfactory condition. The patient was then awakened and taken to recovery in stable condition. I attest to the content of the Intraoperative Record and any orders documented therein. Any exception s are noted below.
[2018-12-04] MEDS ORDERED: FAMOTIDINE 20 MG in SYRINGE 3 ML IV SCH (10:45)
[2018-12-04] MEDS ORDERED: INSULIN ASPART 100 UNITS/ML 3 ML PEN SC SCH (11:30)
[2018-12-04] MEDS: HYDROmorphone INJ 0.5 MG/0.5 ML SYR IV PRN ×2 (12:35→14:49)
--- NOTE | 2018-12-04 14:41 | Ultrasound Report ---
BILATERAL LOWER EXTREMITY VENOUS DOPPLER HISTORY: Acute swelling of the right lower extremity with recent surgery subtherapeutic INR. distal r ight femur fracture COMPARISON STUDY: CT of the right femur of same day. FINDINGS: RIGHT: There is normal compressibility, flow, and augmentation within the right lower extremity deep venous system. LEFT: There is mild linear stranding about the profunda femoris vein without occlusive thrombus. The remain ing the venous structures of the left lower extremity. Normal. IMPRESSION: 1. No evidence of right-sided DVT. 2. Mild linear stranding about the left profunda femoris vein may reflect fibrin from chronic thrombu s. No acute occlusive deep venous thrombosis identified. Electronically signed by: Ant Frank M.D. 12/04/2018 2:40 PM
--- NOTE | 2018-12-04 14:51 | CT Scan Report ---
CT femur RT wo con CT DOSE: 685.71 mGy.cm CLINICAL HISTORY: Distal Periprosthetic Femur Fx TECHNIQUE: Helical images were acquired in the transverse plane. Sagittal and coronal reformatted florentino ges were acquired. A dose lowering technique was utilized adhering to the principles of ALARA. COMPARISON STUDY: X-ray dated 12/04/2018 FINDINGS: There are postsurgical changes of a total right knee arthroplasty and patellar resurfacing. There is a comminuted fracture of the mid to distal femur. The fracture begins 15 cm proximal to the articular surface of the femoral prosthetic component. The distal fragment is posteriorly displaced x 3 cm., And laterally displaced x 2 cm. The fracture extends to the level of the femoral prosthetic component. IMPRESSION: 1. Periprosthetic fracture involving the mid to distal femur. The fracture is comminuted, and begins 15 cm proximal to the articular surface of the femoral prosthetic component and extends to the level of the component. There is 3 cm of posterior displacement and 2 cm of lateral displacement of the tierney or fracture fragments Electronically signed by: Francis Epperson M.D. 12/04/2018 2:50 PM
--- NOTE | 2018-12-04 15:32 | Discharge Summary ---
Date of Service December 04, 2018 Admission HPI Per Admitting Provider The patient is a 68-year-old female with amatory dysfunction, usually walks with a walker, was getting up to walk without the walker, fell and injured her right lower femur. Work-up in the emergency department included x-rays which showed a lower femur dislocated displaced fracture. Patient was attempted to be flown to [facility] [place], but the helicopter to turn around due to fog. Dr. Villatoro from orthopedics will see the patient, and the patient be admitted to medical service due to hypotension and multiple medical issues. Principal Diagnosis Right sided distal femur periprosthetic fracture, comminuted, displaced, not open Discharge Exam Constitutional WD/WN, vitals as above Eyes PERRL, conjunctivae normal, anicteric sclerae ENMT external ear and nose normal, oropharynx normal Neck trachea midline, no thyromegaly Respiratory normal respiratory effort, lungs clear to auscultation Cardiovascular RRR, no murmur, no edema Gastrointestinal (Abdomen) normal bowel sounds, soft, nontender, no hepatosplenomegaly Musculoskeletal no cyanosis or clubbing, extremities motor strength 5/5 Knee: + knee abnormal to inspection (right knee swollen, immobilized), + deformity and + ecchymosis Skin no rashes, warm and dry Neurologic patellar DTR's 2+ bilat, sensation intact and PERRL, EOMI, accommodation nl, no face palsy, no dysarthria Psychiatric A+Ox3, euthymic affect Lymphatic no cervical or axillary lymphadenopathy Discharge Data Allergies Allergy/AdvReac Type Severity Reaction Status Date / Time amoxicillin AdvReac Intermediate nausea Verified 12/04/18 04:48 clavulanic acid AdvReac Intermediate nausea Verified 12/04/18 04:48 Penicillins AdvReac Intermediate NAUSEA/VOMI Verified 12/04/18 04:48 TING Consultations 12/04/18 06:32 ED Decision to Admit Stat 12/04/18 08:57 Consult Case Management - Discharge Planning Routine 12/04/18 10:23 Consult Case Management - Discharge Planning Routine 12/04/18 15:20 Burn CD for patient Stat Procedures Performed Operation Date: 12/04/18 11:20 Actual Procedures p Closed Reduction Distal Periprosthetic Femur Fracture(Right) - Kingsley Quinn er, DO Operation Date: 12/05/18 07:00 <No data on this case meets the specified criteria> Ordered Studies 12/04/18 07:15 US venous doppler LE BI Stat 12/04/18 07:42 FL femur RT 2V Routine FL fluoroscopy <1hr Routine 12/04/18 08:56 CT femur RT wo con Routine Hospital Course (1) Fracture, femur, distal: Patient is status post mechanical fall, with sustained comminuted, displaced distal femur fracture- patient underwent closed reduction under sedation in the OR on 12/04, tolerated well prior to procedure there was some skin tenting, concerns for break in skin, after procedure the skin tending was resolved received Ancef prior to reduction pain is controlled with Dilaudid CT of the femur after reduction showed the following: --Periprosthetic fracture involving the mid to distal femur. The fracture is comminuted, and begins 15 cm proximal to the articular surface of the femoral prosthetic component and extends to the level of the component. There is 3 cm of posterior displacement and 2 cm of lateral displacement of the major fracture fragments discussed with orthopedic surgery, recommend transfer to [place] spoke with [place] [facility], trauma and orthopedics and they will accept patient will set up air transportation (2) Comminuted fracture of bone: See above treated with closed reduction (3) Fall: Patient typically walks with a walker, however, she got up to try to walk without it, fell and fractured her distal femur. no other injuries, patient not complaining of any other pain (4) Hypotension: transient in the ED, could have been related to pain medications treated with Albumin and IV fluids BP now stable, most recently 112/71 (5) DM (diabetes mellitus): Hold metformin, normally on Lantus insulin 30 units subcu every morning 50 units subcu every afternoon along with standing orders for NovoLog 10 units subcu twice daily with meals. recommend giving lower dose of Lantus, 15 and 25 units respectively, and using Novolog SS patient ate today after closed reduction (6) Pulmonary embolism: Patient has been anticoagulated on warfarin, however, her INR was 1.3 upon admission. 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 Goldsmith, within the past year as mentioned above, preserved EF, no evidence of CAD just recently had follow up with cardiology in office and she is doing well no chest pain or pressure, hemodynamically stable takes Coreg and aspirin chronically (8) Anxiety: Anxiety and depression- Held gabapentin, duloxetine, buspirone and amitriptyline. could be resumed after surgery (9) Depression: See above (10) Hypothyroidism: Hold levothyroxine 200 mcg, resume after surgery (11) Chronic reflux esophagitis: Ranitidine 150 mg p.o. twice daily Total Time Total Time Spent Total Time Spent (In Minutes): 45 minutes Total Time Includes: Examination of the Patient, Discharge Planning, Medication Reconciliation and Communication With Other Providers (Discussed with Dr. Jarrett, discussed with [facility] and physicians) Discharge Plan Discharge Items Patient Disposition: Transfer Acute Care Hospital Reason For Visit: RIGHT PERIPROSTHETIC FRACTURE OF DISTAL FEMUR Discharge Diagnosis: Right periprosthetic fracture of distal femur Mechanical fall Condition: Fair Discharge Goals: Improve function and Therapeutic intervention Activity: Per 'Additional Instructions' section Activity Comment: bedrest Non-emergency contact: Primary Care Provider and Surgeon Call non-emergency contact if: you have any medication questions Follow-up/Referrals: Chavo Paz III, MD [Primary Care Provider] - Diet: Carb Consistent or DM2 Addtl Provider Instructions: see discharge summary will go to [facility] Prescriptions: Continued gabapentin 300 mg capsule 300 mg PO HS Qty: 30 RF: 1 metformin [Glucophage] 1,000 mg tablet 1,000 mg PO BID Qty: 60 RF: 5 Novolog Flexpen U-100 Insulin 100 unit/mL (3 mL) insulin pen 10 unit subcut BIDM RF: 0 carvedilol [Coreg] 12.5 mg tablet 12.5 mg PO BID RF: 0 aspirin [Aspir-81] 81 mg Tablet,Delayed Release (Dr/Ec) 81 mg PO QAM RF: 0 mirtazapine [Remeron] 15 mg tablet 15 mg PO HS RF: 0 amitriptyline 100 mg tablet 100 mg PO HS RF: 0 buspirone 15 mg tablet 7.5 mg PO BID RF: 0 duloxetine [Cymbalta] 60 mg capsule,delayed release(DR/EC) 60 mg PO QAM RF: 0 losartan [Cozaar] 50 mg tablet 50 mg PO QAM RF: 0 acetaminophen [Tylenol Extra Strength] 500 mg Tablet 100 mg PO Q8 PRN (Reason: Pain) RF: 0 meloxicam [Mobic] 7.5 mg tablet 7.5 mg PO BID PRN (Reason: Pain) RF: 0 ferrous sulfate [iron] 325 mg (65 mg iron) Tablet 325 mg PO QAM RF: 0 ranitidine HCl [Zantac] 150 mg tablet 150 mg PO BID RF: 0 warfarin [Coumadin] 5 mg tablet See Rx Instructions .ROUTE .COMPLEX RF: 0 docusate sodium 100 mg Capsule 100 mg PO BID RF: 0 levothyroxine [Synthroid] 200 mcg tablet 200 mcg PO QAM RF: 0 furosemide [Lasix] 20 mg Tablet 20 mg PO DAILY PRN (Reason: swelling) RF: 0 albuterol sulfate [Ventolin HFA] 90 mcg/actuation HFA aerosol inhaler 2 puff Inhalation QID PRN (Reason: Shortness Of Breath Or Wheezing) RF: 0 fluticasone propionate [Flonase Allergy Relief] 50 mcg/actuation S pray,Suspension 2 spray INTRANASAL DAILY PRN (Reason: Congestion) RF: 0 loratadine [Claritin] 10 mg Tablet 10 mg PO QAM RF: 0 esomeprazole magnesium [Nexium] 20 mg Capsule,Delayed Release(Dr/Ec) 20 mg PO DAILY PRN (Reason: Gi Upset) RF: 0 Lantus Solostar U-100 Insulin 100 unit/mL (3 mL) insulin pen 30 units subcut QAM RF: 0 Lantus Solostar U-100 Insulin 100 unit/mL (3 mL) insulin pen 50 units subcut QPM RF: 0 cholecalciferol (vitamin D3) [Vitamin D3] 1,000 unit Capsule 1,000 unit PO BID RF: 0 Stand-Alone Forms: On License Of [facility] Discharge Orders: Discharge Order (Routine); Ordered 12/04/18 Ordered By: William Johnson Admission Data Admit Date/Time: 12/04/18 07:48 Attending Provider: William Johnson Admit Provider: Sky Gonzales Primary Care Provider: Chavo Paz III Other Providers: Sky Gonzales Service: Telemetry
[2018-12-04] MEDS ORDERED: HEPARIN SOD 5,000 UNIT/0.5 ML VIAL SQ STA (15:44)
[2018-12-04] MEDS ORDERED: HYDROmorphone INJ 0.5 MG/0.5 ML SYR IV ONE (15:45)
[2018-12-04] MEDS ORDERED: SENNA 8.6 MG TAB PO SCH (21:00)
== END 2018-12-04 16:50 | disposition short-term general hospital (02) | DRG 560 ==
LOC: ED 03:58 → 2W 07:47 → ASU 07:47 → 2W 07:48